=== PATIENT | female | born 1955 | race Caucasian/White ===

== ENCOUNTER 2016-06-30 15:34 | Observation (INO) ==
--- NOTE | 2016-06-30 15:48 | Emergency Department Note ---
Disposition Clinical Impression: Chest pain Qualifiers: Chest pain type: unspecified Qualified Code(s): R07.9 - Chest pain, unspecified Dyspnea Qualifiers: Dyspnea type: unspecified Qualified Code(s): R06.00 - Dyspnea, unspecified Disposition: Home, Self-Care Condition: Good General Adult HPI - General Chief complaint: ED Chest Pain Stated complaint: "chest pain, tired, sob" Time Seen by Provider: 06/30/16 15:47 Source: patient Limitations: no limitations Nursing Notes Reviewed: Yes Vital Signs Reviewed: Yes - History of Present Illness HPI Narrative: 60 y/o female who has had 3 days of intermittent chest pressure and discomfort radiating to her jaw. Significant cardiac history with CABG x4 and PCI with stents placed in 2015. Denies fever. Admits to dyspnea. No LE edema. No cough. PMH of HTN, HLD, fibromyalgia, COPD, CHF, and scleroderma. On keppra, nitro, lasix, duoneb, neurontin, and asa. Hx of COPD and is on 4L NC at all times Radiation: other (pressure) Pain Scale: 10 Consistency: intermittent Improves with: nothing Worsens with: nothing Associated symptoms: Reports: denies other symptoms Treatments Prior to Arrival: none - Related Data Home Medications Medication Instructions Recorded Confirmed LevETIRAcetam [Keppra] 500 mg PO BID #0 12/06/14 06/30/16 Nitroglycerin 0.4 mg SL Q5M PRN 12/31/14 06/30/16 Furosemide [Lasix] 20 mg PO DAILY PRN 05/05/15 06/30/16 Clopidogrel [Plavix] 75 mg PO QAM 12/08/15 06/30/16 Esomeprazole Magnesium [Nexium] 40 mg PO QAM 12/08/15 06/30/16 Ezetimibe [Zetia] 10 mg PO QAM 12/08/15 06/30/16 Gabapentin [Neurontin] 800 mg PO TID 12/08/15 06/30/16 Ranolazine [Ranexa] 1,000 mg PO BID 12/08/15 06/30/16 Denosumab [Prolia (For Outpatient 60 mg SQ [id number] 12/27/15 06/30/16 Infusion)] Oxygen 4 l IH CONT 12/27/15 06/30/16 Ubidecarenone [Co Q10] 100 mg PO BID 12/27/15 06/30/16 Aspirin 81 mg PO QAM 02/01/16 06/30/16 Albuterol Neb [Proventil Neb] 2.5 mg IH TID 06/30/16 06/30/16 Amlodipine [Norvasc] 5 mg PO DAILY 06/30/16 06/30/16 Citalopram [CeleXA] 20 mg PO DAILY 06/30/16 06/30/16 Diclofenac Sodium 2 - 3 gm TP 3-4XD PRN 06/30/16 06/30/16 Ergocalciferol (VITAMIN D2) 50,000 unit PO QWEEK 06/30/16 06/30/16 [Vitamin D2] Levalbuterol Tartrate [Xopenex Hfa] 1 puff IH Q4H PRN 06/30/16 06/30/16 Metoprolol XL (24 HR) Succ [Toprol 12.5 mg PO DAILY 06/30/16 06/30/16 XL] Mycophenolate Mofetil [Cellcept] 1,000 mg PO BID 06/30/16 06/30/16 Tizanidine HCl [Zanaflex] 2 mg PO BID PRN 06/30/16 06/30/16 Previous Rx's Medication Instructions Recorded Gemfibrozil [Lopid] 600 mg PO BIDAC #60 tablet 02/02/16 Isosorbide MONOnitrate (24 HR) 120 mg PO QAM #60 tab.er.24h 02/02/16 [Imdur] Allergies Allergy/AdvReac Type Severity Reaction Status Date / Time Hydroxychloroquine Allergy Severe Swelling Verified 02/01/16 10:31 of Lip/Tongue/Throat epinephrine Allergy Seizure Verified 02/01/16 10:31 [From Epi E-Z Pen] iron AdvReac Abdominal Verified 02/01/16 08:28 Pain All systems ED: reviewed and negative except as stated. Constitutional: Denies: fever Eyes: Denies: vision change ENT ED: Denies: throat pain Cardiovascular: Reports: chest pain Respiratory: Reports: dyspnea. Denies: cough Gastrointestinal: Denies: abdominal pain Genitourinary: Denies: dysuria Integumentary: Denies: rash Neurological: Denies: headache Endocrine: Reports: fatigue Past Medical History - Past Medical History Attestation: Yes The following information was validated with the patient. 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 Absent: respiratory distress - Cardiovascular Cardiovascular exam: Present: regular rate, normal rhythm - Abdominal Exam Abdominal exam: Present: soft, Non-Tender - Extremities Exam Extremities exam: Present: normal inspection - Neurological Exam Neurological exam: Present: alert, oriented X3 - Psychiatric Psychiatric exam: Present: depressed - Skin Skin exam: Present: warm, dry Course Course Narrative: Due to her significant cardiac history and symptoms will do cardiac workup. Her symptoms have been progressive and not sudden in onset. Wells score of 0, no current suspicion for PE. - Reevaluation(s) Reevaluation #1: Troponin negative. EKG unremarkable. She has times of pain free and times of chest pressure while in the department. Will admit. Vital Signs Temperature 97.5 F L 06/30/16 15:35 Pulse Rate 65 06/30/16 15:35 Respiratory Rate 16 06/30/16 15:35 Blood Pressure 115/89 06/30/16 15:35 O2 Sat by Pulse Oximetry 100 06/30/16 15:35 Temperature 97.7 F 06/30/16 20:16 Pulse Rate 63 06/30/16 20:16 Respiratory Rate 18 06/30/16 20:16 Blood Pressure 119/69 06/30/16 20:16 O2 Sat by Pulse Oximetry 98 06/30/16 20:16 Oxygen Delivery Oxygen Delivery Room Air Medical Decision Making - Medical Records Medical records reviewed: Yes I reviewed the patient's medical records. - Lab Data Lab results reviewed: Yes I reviewed the patient's lab results. Result diagrams: 06/30/16 16:40 06/30/16 16:40 Lab Results 06/30/16 06/30/16 06/30/16 Range/Units 16:40 16:40 16:40 WBC 5.6 (4.3-11.1) K/mcL RBC 4.21 (3.82-4.97) M/mcL Hgb 12.4 (11.5-15.4) g/dL Hct 38.1 (35.3-44.9) % MCV 90.5 (83.0-100.0) fL MCH 29.5 (28.0-33.3) pg MCHC 32.5 (31.6-35.5) g/dL RDW 12.4 (11.5-14.5) % Plt Count 349 (140-400) K/mcL MPV 9.3 L (9.4-12.4) fL Immature Gran % 0.4 (0-4) % Seg Neutrophils % 73.1 % Lymphocytes % 15.7 % Monocytes % 9.3 % Eosinophils % 1.1 % Basophils % 0.4 % Neutrophils # 4.1 (1.6-8.9) K/mcL Lymphocytes # 0.9 (0.6-4.6) K/mcL Monocytes # 0.5 (0.0-1.3) K/mcL Eosinophils # 0.1 (0.0-0.6) K/mcL Basophils # 0.0 (0.0-0.2) K/mcL Sodium 141 (136-145) mEq/L Potassium 3.9 (3.5-4.5) mEq/L Chloride 106 (98-109) mEq/L Carbon Dioxide 25 (19-29) mEq/L BUN 16 (7-20) mg/dL Creatinine 0.68 (0.57-1.11) mg/dL Est GFR ( Amer) > 60 (> 60) Est GFR (Non-Af Amer) > 60 (> 60) BUN/Creatinine Ratio 24 (6-26) Glucose 86 (70-99) mg/dL Calculated Osmolality 292 (280-300) Calcium 9.3 (8.6-10.8) mg/dL Troponin I (0-0.03) ng/mL B-Natriuretic Peptide 71 (0-100) pg/mL Urine Color (Yellow) Urine Clarity (Clear) Urine pH (5.0-8.0) pH Units Ur Specific [place] (1.010-1.025) Urine Protein (Neg-Trace) mg/dL Urine Glucose (UA) (Normal) mg/dL Urine Ketones (Negative) mg/dL Urine Blood (Negative) Urine Nitrite (Negative) Urine Bilirubin (Negative) Urine Urobilinogen (Normal) mg/dL Ur Leukocyte Esterase (Negative) Ur Culture Indicated? (NO) 06/30/16 06/30/16 Range/Units 16:40 17:12 WBC (4.3-11.1) K/mcL RBC (3.82-4.97) M/mcL Hgb (11.5-15.4) g/dL Hct (35.3-44.9) % MCV (83.0-100.0) fL MCH (28.0-33.3) pg MCHC (31.6-35.5) g/dL RDW (11.5-14.5) % Plt Count (140-400) K/mcL MPV (9.4-12.4) fL Immature Gran % (0-4) % Seg Neutrophils % % Lymphocytes % % Monocytes % % Eosinophils % % Basophils % % Neutrophils # (1.6-8.9) K/mcL Lymphocytes # (0.6-4.6) K/mcL Monocytes # (0.0-1.3) K/mcL Eosinophils # (0.0-0.6) K/mcL Basophils # (0.0-0.2) K/mcL Sodium (136-145) mEq/L Potassium (3.5-4.5) mEq/L Chloride (98-109) mEq/L Carbon Dioxide (19-29) mEq/L BUN (7-20) mg/dL Creatinine (0.57-1.11) mg/dL Est GFR ( Amer) (> 60) Est GFR (Non-Af Amer) (> 60) BUN/Creatinine Ratio (6-26) Glucose (70-99) mg/dL Calculated Osmolality (280-300) Calcium (8.6-10.8) mg/dL Troponin I 0.00 (0-0.03) ng/mL B-Natriuretic Peptide (0-100) pg/mL Urine Color Yellow (Yellow) Urine Clarity Clear (Clear) Urine pH 6.5 (5.0-8.0) pH Units Ur Specific [place] 1.010 (1.010-1.025) Urine Protein Negative (Neg-Trace) mg/dL Urine Glucose (UA) Normal (Normal) mg/dL Urine Ketones Negative (Negative) mg/dL Urine Blood Negative (Negative) Urine Nitrite Negative (Negative) Urine Bilirubin Negative (Negative) Urine Urobilinogen Normal (Normal) mg/dL Ur Leukocyte Esterase Negative (Negative) Ur Culture Indicated? NO (NO) - Radiology Data Radiology results reviewed: Yes I reviewed the patient's radiology results. - EKG Data EKG #1 EKG attestation: Yes I reviewed and interpreted this EKG. EKG shows normal: sinus rhythm Rate: normal Rhythm: NSR [place]/QRS: normal When compared to previous EKG there are: no significant changes Interpretation: no acute changes Attestation Statement - Attestation Attestation: I examined this patient and my medical decision-making was reviewed with the SPEEDER MACHINE OPERATOR/PA/Advanced Practice Nurse/Resident Physician. I agree with the documented findings, disposition and treatment plan as described except to the extent set forth below. 60-year-old female presents to ED because of chest pain. She has history of coronary disease and had bypass surgery 8 years ago. Recurrent coronary events with stenting in the past few years. She now presents with left-sided chest pain radiating to her jaw. Cannot decipher any provocative factors. No diaphoresis. No nausea. Does complain of dyspnea. No fevers, chills or rigors. Agitated female who is very anxious. No apparent physiologic distress. Oropharynx is clear. Neck is supple. Trachea midline no JVD. Chest clear to auscultation bilaterally. She has moderate reproducible chest wall tenderness but she says this is not the same pain and her presenting pain is a deeper discomfort. Cardiac exam regular without rubs or gallops. Occasional ectopy. Abdomen soft nondistended nontender. Extremities warm and dry without asymmetric edema. EKG was done twice without any acute abnormalities appreciated. Initial troponin was normal. She came in with recurrent pain despite multiple rounds of medications including nitroglycerin and morphine. There is definitely a significant element of anxiety. She will be admitted for further evaluation.
[2016-06-30] MEDS: Nitroglycerin 0.4 MG TAB.SUBL SL ONE ×3 (16:10→16:33)
[2016-06-30] MEDS ORDERED: Ondansetron 4 MG/2 ML VIAL IVP ONE (16:35)
[2016-06-30 17:19] LABS: Bilirubin,Urine Negative (Negative); Blood,Urine Negative (Negative); Clarity,Urine Clear (Clear); Color,Urine Yellow (Yellow); Glucose,Urine (UA) Normal (Normal); Ketones,Urine Negative (Negative); Leukocyte Esterase,Urine Negative (Negative); Nitrite,Urine Negative (Negative); PH,Urine 6.5 pH Units (5.0-8.0); Protein,Urine Negative (Neg-Trace); Urobilinogen,Urine Normal (Normal)
[2016-06-30 17:22] LABS: Basophils % 0.4 %; Eosinophils # 0.1 K/mcL (0.0-0.6); Eosinophils % 1.1 %; Hematocrit 38.1 % (35.3-44.9); Hemoglobin 12.4 g/dL (11.5-15.4); Immature Granulocytes % 0.4 % (0-4); Lymphocytes # 0.9 K/mcL (0.6-4.6); Lymphocytes % 15.7 %; Mean Corpuscular HGB Conc 32.5 g/dL (31.6-35.5); Mean Corpuscular Hemoglobin 29.5 pg (28.0-33.3); Mean Corpuscular Volume 90.5 fL (83.0-100.0); Mean Platelet Volume 9.3 fL (9.4-12.4); Monocytes # 0.5 K/mcL (0.0-1.3); Monocytes % 9.3 %; Neutrophils # 4.1 K/mcL (1.6-8.9); Platelet Count 349 K/mcL (140-400); Red Blood Count 4.21 M/mcL (3.82-4.97); Red Cell Distribution Width 12.4 % (11.5-14.5); Segmented Neutrophils % 73.1 %
[2016-06-30 17:37] LABS: BUN/Creatinine Ratio 24 (6-26); Blood Urea Nitrogen 16 mg/dL (7-20); Calcium 9.3 mg/dL (8.6-10.8); Carbon Dioxide 25 mEq/L (19-29); Chloride 106 mEq/L (98-109); Glucose 86 mg/dL (70-99); Osmolality,Calculated 292 (280-300); Potassium 3.9 mEq/L (3.5-4.5); Sodium 141 mEq/L (136-145); eGFR For African Americans > 60 (> 60); eGFR For Non-African Americans > 60 (> 60)
[2016-06-30] MEDS ORDERED: *HR* Morphine 2 MG/ML SYRINGE IV ONE (17:40)
[2016-06-30] MEDS ORDERED: *HR* LORazepam 2 MG/ML VIAL IVP ONE (17:56)
[2016-06-30] MEDS ORDERED: Dextrose Gel 15 GM PO PRN ×2 (21:16)
[2016-06-30] MEDS ORDERED: Acetaminophen 325 MG TABLET PO PRN (21:16)
[2016-06-30] MEDS ORDERED: *HR* Dextrose 50 % in Water (Syg) 50 ML SYRINGE IVP PRN (21:16)
[2016-06-30] MEDS ORDERED: Ondansetron ODT 4 MG TAB.RAPDIS SL PRN (21:16)
[2016-06-30] MEDS ORDERED: Naloxone 0.4 MG/ML INJ IVP PRN (21:16)
[2016-06-30] MEDS ORDERED: D5% in Water 1,000 ML IV PRN (21:16)
[2016-06-30] MEDS ORDERED: Furosemide 20 MG TABLET PO PRN (21:21)
--- NOTE | 2016-06-30 21:40 | Internal Med History&Physical ---
Date of Encounter: 06/30/16 Time of Encounter: 21:38 Assessment and Plan (1) Chest pain Current visit: Yes Status: Acute trend troponins diabetic cardiac diet Qualifiers: Chest pain type: unspecified Qualified Code(s): R07.9 - Chest pain, unspecified (2) CAD (coronary artery disease) Current visit: No Status: Chronic patient not currently on a statin - review of records shows that she discontinued the medication due to being on gemfibrozil even though Dr. Bello advised her to take both medications Qualifiers: Coronary Disease-Associated Artery/Lesion type: unspecified vessel or lesion type [place] vs. transplanted heart: [place] heart Associated angina: angina presence unspecified Qualified Code(s): I25.10 - Atherosclerotic heart disease of [place] coronary artery without angina pectoris (3) Chronic respiratory failure with hypoxia Current visit: No Status: Chronic patient on 4L O2 via NC 20/11 non-compliant with CPAP at home supplemental O2 to maintain spO2 88% (4) Hypertension Current visit: No Status: Chronic continue home medications PRN hydralazine Qualifiers: Hypertension type: essential hypertension Qualified Code(s): I10 - Essential (primary) hypertension (5) Diabetes Current visit: Yes Status: Acute sliding scale Qualifiers: Diabetes mellitus type: type 2 Diabetes mellitus complication status: with unspecified complications Diabetes mellitus terminal computer operator insulin use: without fpc use Qualified Code(s): E11.8 - Type 2 diabetes mellitus with unspecified complications (6) Limited scleroderma Current visit: No Status: Chronic (7) DVT prophylaxis Current visit: Yes Status: Acute SQ heparin Internal Medicine - H&P: HPI Chief complaint: chest pain Admitted From: Emergency Dept Plans for Post Hospital Care: Home History of present illness: Ms. Ratliff is a 60 year old hypertensive diabetic with a history of hyperlipidemia and coronary artery disease status post CABG and stents who presents to the emergency department with a chief complaint of chest pain for 3 days. She states that she feels a squeezing chest pressure that increases in intensity before releasing similar to contractions of labor. This pressure like pain was located in the left side of her chest. It radiated up her child is and into her left arm. I did not disrupt her sleep at night. She had associated nausea this evening when she came to the emergency department. Cardiac catheterization 02/01/2016 showed severe three-vessel coronary artery disease, LV EF 55%. Stent placement from prior procedure in the mid RCA is patent. S/P CABG 2 of 3 patent bypass grafts. Anatomy has no significant change since 2015 [facility]. Moderate pulmonary hypertension mPAP 44 with elevated LVEDP 29-30. Recommendations: optimal medical therapy and aggressive risk factor modification. Past Med Surg Social Fam HX - Past Medical History Medical history: arthritis, asthma, CHF, COPD, coronary artery disease, hyperlipidemia, hypertension, myocardial infarction, osteoporosis, seizures, other ([place], limited scleroderma) Psychiatric history: anxiety, depression, PTSD - Past Surgical History Surgical History: angioplasty/stent, cholecystectomy, coronary bypass (CABG), hysterectomy, orthopedic, other (L shoulder, R hip), LEOPOLDO/BSO, other (neck fusion ) - Social History Smoking Status: Former smoker Smokeless Tobacco Status: No Alcohol use: rarely Drug use: none - Family History Brother Living Status: Hx Family Cardiac Disorders: Yes (CAD) Daughter Living Status: Still Living Father Adopted: [place]: [place] Living Status: Age at : 42 Cause of : [place] Hx Family Cardiac Disorders: Yes ([place], cardiomegaly) Hx Family Respiratory Disorders: No Hx Family Cancer: No Hx Family GI Disorders: No Hx Family Genitourinary Disorders: No Hx Family Endocrine Disorder: No Hx Family Musculoskeletal Disorders: Yes (arthritis) Hx Family Neuromuscular Disorders: No Hx Family Neurologic Disorders: No Hx Family HEENT Disorders: No Hx Family Autoimmune Disorders: No Hx Family Reproductive Disorders: No Hx Family Psychosocial Disorders: No Hx Family Medical Disorders: No Sister Living Status: Hx Family Cardiac Disorders: Yes (CAD) Hx Family Respiratory Disorders: Yes (copd (sister, smoker)) Mother Living Status: Hx Family Cardiac Disorders: Yes (CAD) Son Adopted: No Living Status: Still Living Hx Family Cardiac Disorders: Yes Hx Family Respiratory Disorders: Yes Hx Family Cancer: Yes Hx Family GI Disorders: No Hx Family Endocrine Disorder: Yes Hx Family Neuromuscular Disorders: No Hx Family Neurologic Disorders: No Hx Family HEENT Disorders: No Hx Family Autoimmune Disorders: No Internal Medicine - H&P: Meds LevETIRAcetam [Keppra] 500 mg PO BID #0 12/06/14 [History] Nitroglycerin 0.4 mg SL Q5M PRN 12/31/14 [History] Furosemide [Lasix] 20 mg PO DAILY PRN 05/05/15 [History] Clopidogrel [Plavix] 75 mg PO QAM 12/08/15 [History] Esomeprazole Magnesium [Nexium] 40 mg PO QAM 12/08/15 [History] Ezetimibe [Zetia] 10 mg PO QAM 12/08/15 [History] Gabapentin [Neurontin] 800 mg PO TID 12/08/15 [History] Ranolazine [Ranexa] 1,000 mg PO BID 12/08/15 [History] Denosumab [Prolia (For Outpatient Infusion)] 60 mg SQ [id number] 12/27/15 [History ] Oxygen 4 l IH CONT 12/27/15 [History] Ubidecarenone [Co Q10] 100 mg PO BID 12/27/15 [History] Aspirin 81 mg PO QAM 02/01/16 [History] Gemfibrozil [Lopid] 600 mg PO BIDAC #60 tablet 02/02/16 [Rx] Isosorbide MONOnitrate (24 HR) [Imdur] 120 mg PO QAM #60 tab.er.24h 02/02/16 [Rx ] Albuterol Neb [Proventil Neb] 2.5 mg IH TID 06/30/16 [History] Amlodipine [Norvasc] 5 mg PO DAILY 06/30/16 [History] Citalopram [CeleXA] 20 mg PO DAILY 06/30/16 [History] Diclofenac Sodium 2 - 3 gm TP 3-4XD PRN 06/30/16 [History] Ergocalciferol (VITAMIN D2) [Vitamin D2] 50,000 unit PO QWEEK 06/30/16 [History] Levalbuterol Tartrate [Xopenex Hfa] 1 puff IH Q4H PRN 06/30/16 [History] Metoprolol XL (24 HR) Succ [Toprol XL] 12.5 mg PO DAILY 06/30/16 [History] Mycophenolate Mofetil [Cellcept] 1,000 mg PO BID 06/30/16 [History] Tizanidine HCl [Zanaflex] 2 mg PO BID PRN 06/30/16 [History] Allergies Hydroxychloroquine Allergy (Severe, Verified 02/01/16 10:31) Swelling of Lip/Tongue/Throat epinephrine [From Epi E-Z Pen] Allergy (Verified 02/01/16 10:31) Seizure iron Adverse Reaction (Verified 02/01/16 08:28) Abdominal Pain All Systems PM: A 10-system review of systems was performed and is negative for pertinent findings except as documented above in the HPI. - Constitutional Constitutional: no chills, no fever(s), no night sweats - EENT Eyes: blurry vision (chronic), no change in vision, no discharge, no pain, no photophobia Ears: no ear discharge, no ear pain, no tinnitus Nose, mouth and throat: no dysphagia, no nasal discharge, no neck pain, no sore throat - Cardiovascular Cardiovascular ROS IM: chest pain, no diaphoresis, no dyspnea, no lightheadedness, no palpitations, no syncope - Respiratory Respiratory: dyspnea (chronic), no cough, no wheezing, no excessive phlegm production - Gastrointestinal Gastrointestinal: nausea, no abdominal pain, no diarrhea, no hematemesis, no hematochezia, no melena, no vomiting - Genitourinary Genitourinary: no change in urinary stream, no dysuria, no flank pain, no hematuria, no urinary hesitancy, no urinary urgency - Musculoskeletal Musculoskeletal ROS IM: no arthralgias, no muscle weakness, no myalgias, no numbness, no tingling - Integumentary Integumentary IM: no rash, no unusual bruising - Neurological Neurological ROS: headache(s), no confusion, no convulsions, no dizziness, no focal weakness, no numbness, no tingling, no tremor(s), no weakness - Hematologic/Lymphatic Hematologic/Lymphatic: no easy bruising - Constitutional Vitals: Temp Pulse Resp BP Pulse Ox 97.7 F 63 18 119/69 98 06/30/16 20:16 06/30/16 20:16 06/30/16 20:16 06/30/16 20:16 06/30/16 20:16 General appearance: Present: A&O X 3, no acute distress, obese, answers questions appropriately - Head Head exam: Present: atraumatic, normocephalic - Eye Eye exam: Present: PERRL, conjuntiva pink, sclera anicteric Pupils: Present: PERRL - Neck Neck exam general surgery: Present: supple, trachea midline. Absent: lymphadenopathy - Respiratory Respiratory exam: Present: decreased breath sounds, prolonged expiratory phase. Absent: accessory muscle use, rales, rhonchi, wheezes - Cardiovascular Cardiovascular exam: Present: RRR, +S1, +S2. Absent: diastolic murmur, gallop, rubs, systolic murmur - GI/Abdominal GI/Abdominal exam: Present: normal bowel sounds, soft, no peritoneal signs. Absent: distended, tenderness - Extremities Exam Extremities exam: Present: warm, radial pulses palpable and symetrical. Absent : calf tenderness, cyanotic, pedal edema - Neurological Exam Neurological exam: Present: CN II-XII intact, oriented X3, no focal deficits. Absent: pronater drift, facial droop, speech deficit - Skin Skin exam: Present: dry, intact Internal Med - H&P Results - Labs CBC & Chem 7: 06/30/16 16:40 06/30/16 16:40
[2016-06-30] MEDS: *HR* Heparin 5,000 UNIT/ML VIAL SQ SCH (22:04)
[2016-06-30] MEDS ORDERED: Melatonin 3 MG TABLET PO PRN (22:37)
[2016-06-30] MEDS ORDERED: *HR* Morphine 2 MG/ML SYRINGE IVP PRN (22:48)
--- NOTE | 2016-06-30 23:25 | Event Note ---
Date of Encounter: 06/30/16 Time of Encounter: 22:30 I agree essentially with the assessment and plan of Resident, case discussed, plan agreed upon. The patient was evaluated at bedside. Ms. Ratliff is a 60 year old with medical history significant for HTN, DM2, HLD, CAD s/p [place], PCI,, CABG, scleroderma, pulmonary HTN, presenting with squeezing left-sided chest pain with radiation to left shoulder, jaw and right side of anterior chest wall of 3- 4 duration, associated with SOB. She recounts pain pattern is different from pain she had with her [place]. pATIENT EVALUATED AT BEDSIDE, DIMINSHED BREATH SOUNDS ESPECIALLY in the lung bases posteriorly. CXR: non-acute. EKG: NSR @ 66, low voltage, no ST-T or T wave abnormality. Troponin normal. IMP Unstable angina vs non-cardiac chest pain PLAN Cycle troponin, serial EKG Increase Imdur to 120 mg QD Morphine IV 2 mg Q4H prn Obtain lipid profile and TSH. Consult cardiology. Worry she is not taking statin, previously on Pravastatin as documented in out- patient record. Her sister who is at bedside thinks he cause increased liver enzymes hence it was stopped. Confirm this with her shake backboard notcher Dr Bello.
[2016-06-30] MEDS: levETIRAcetam 250 MG TABLET PO SCH (23:30)
[2016-06-30] MEDS: Levalbuterol 1 PUFF INHALER IH SCH (23:50)
[2016-07-01] MEDS: Insulin LISPRO 300 UNITS/3 ML VIAL SQ SCH ×3 (00:44→12:11)
[2016-07-01] MEDS: Albuterol 2.5 MG/3 ML NEBULIZER IH SCH ×2 (01:23→07:43)
[2016-07-01 03:57] LABS: Basophils % 0.4 %; Eosinophils # 0.1 K/mcL (0.0-0.6); Eosinophils % 1.4 %; Hematocrit 34.8 % (35.3-44.9); Hemoglobin 11.5 g/dL (11.5-15.4); Immature Granulocytes % 0.4 % (0-4); Lymphocytes % 20.9 %; Mean Corpuscular Hemoglobin 30.1 pg (28.0-33.3); Mean Corpuscular Volume 91.1 fL (83.0-100.0); Mean Platelet Volume 9.4 fL (9.4-12.4); Monocytes # 0.5 K/mcL (0.0-1.3); Monocytes % 9.9 %; Neutrophils # 3.3 K/mcL (1.6-8.9); Platelet Count 311 K/mcL (140-400); Red Blood Count 3.82 M/mcL (3.82-4.97); Red Cell Distribution Width 12.6 % (11.5-14.5)
[2016-07-01 04:07] LABS: Hemoglobin A1C 4.8 %
[2016-07-01 04:11] LABS: Chol/HDL Ratio 3.9 (0-4.9)
[2016-07-01 04:13] LABS: BUN/Creatinine Ratio 24 (6-26); Blood Urea Nitrogen 19 mg/dL (7-20); Calcium 8.7 mg/dL (8.6-10.8); Carbon Dioxide 27 mEq/L (19-29); Chloride 107 mEq/L (98-109); Glucose 110 mg/dL (70-99); Osmolality,Calculated 297 (280-300); Potassium 4.4 mEq/L (3.5-4.5); Sodium 142 mEq/L (136-145); eGFR For African Americans > 60 (> 60); eGFR For Non-African Americans > 60 (> 60)
[2016-07-01] MEDS: Levalbuterol 1 PUFF INHALER IH SCH ×3 (04:58→11:11)
[2016-07-01] MEDS: *HR* Heparin 5,000 UNIT/ML VIAL SQ SCH ×2 (06:56→14:38)
--- NOTE | 2016-07-01 07:33 | Cardiology Consult Note ---
<Pavan Orlelana - Last Filed: 07/01/16 08:53> Date of Encounter: 07/01/16 Time of Encounter: 07:30 Assessment and Plan (1) Chest pain Current Visit: Yes Status: Acute Per Cardiology: Trops negative 3 at 0.00. Currently chest pain-free. Most recent echo January 2016 showed EF 65%, moderate diastolic dysfunction, no significant valvular dysfunction, no segment wall motion abnormalities. I had lengthy discussion with patient regarding catheterization from January. Patient on Ranexa 1000 mg by mouth twice a day. Long-acting nitrates increased from 60 mg to 120 mg during this admission. Patient desires to proceed with a limited echo to reevaluate for any EF changes. No catheterization warranted at this time. Further recs after echo. Discussed and reviewed with Dr. Canales. Qualifiers: Chest pain type: unspecified Qualified Code(s): R07.9 - Chest pain, unspecified (2) CAD (coronary artery disease) Current Visit: No Status: Chronic Per Cardiology: History of CAD with CABG in 2007. Last heart catheterization January 2016 which showed patent to 3 bypass grafts and anatomy unchanged from 2015 catheterization. Had patent MCDONALD to LAD, patent SVG to OM1, occluded SVG to right PDA. RCA had a proximal 50%, patent mid RCA stents, right PDA is small in size with 80% stenosis. Last echo January 2016 showed EF preserved 65%, no significant valvular dysfunction. Patient now started on statin therapy. We'll monitor closely and follow LFTs. Reports history of elevated LFTs with Lipitor in the past. On aspirin, beta sofi, and Plavix. Qualifiers: Coronary Disease-Associated Artery/Lesion type: unspecified vessel or lesion type [place] vs. transplanted heart: [place] heart Associated angina: angina presence unspecified Qualified Code(s): I25.10 - Atherosclerotic heart disease of [place] coronary artery without angina pectoris (3) Diastolic dysfunction Current Visit: Yes Status: Chronic Per Cardiology: Last echo shows moderate diastolic dysfunction. Warm and euvolemic on exam. Chest x-ray with no evidence of heart failure. BMP within normal limits at 73. On Lasix. Do not suspect acute heart failure. Discussion w patient/family: The assessment and plan as outlined above was discussed with the patient and/or family members who expressed understanding and agreement. All questions were answered. Thank you for involving us in the care of your patient. Please call with any questions. History of Present Illness Consult date: 07/01/16 Requesting physician: Tonya Almendarez Consult reason: CP Chief complaint: CP History of present illness: Ms. Ratliff is a 60 year old female with a relevant past medical history of CAD with CABG, diabetes mellitus type 2, hypertension, hyperlipidemia, severe pulmonary hypertension, COPD, diastolic dysfunction, sleep apnea, past history nicotine abuse, and scleroderma. Had recent heart catheterization January 2016 which showed patent to [address] with Dr. Bello. Patient reports increased shortness of breath at rest over the past few weeks. She utilizes home oxygen 20/11. She presented to the ER for complaints of midsternal chest squeezing with radiation to her jaws and left shoulder and scapular region. She reports the pain was continuous, however now relieved. She denies any recent fever, chills, nausea, vomiting, diarrhea, cough. Reports compliance with medications. Not taking statin currently due to reported elevated LFTs with Lipitor. Reports she couldn't wait to see Dr. Bello next week in clinic. Past Med Surg Social Fam HX - Past Medical History Attestation: Yes The following information was validated with the patient. Source: patient, old records reviewed, obtained from family Medical history: arthritis, asthma, CHF, COPD, coronary artery disease, hyperlipidemia, hypertension, myocardial infarction, osteoporosis, seizures, other (BELEN, limited scleroderma) Psychiatric history: anxiety, depression, PTSD - Past Surgical History Surgical History: angioplasty/stent, cholecystectomy, coronary bypass (CABG), hysterectomy, orthopedic, other (L shoulder, R hip), LEOPOLDO/BSO, other (neck fusion ) - Social History Smoking Status: Former smoker Smokeless Tobacco Status: No Alcohol use: rarely Drug use: none - Family History Brother Living Status: Hx Family Cardiac Disorders: Yes (CAD) Daughter Living Status: Still Living Father Adopted: [place]: Scott Laguerre Living Status: Age at : 42 Cause of : GA Hx Family Cardiac Disorders: Yes ([place], cardiomegaly) Hx Family Respiratory Disorders: No Hx Family Cancer: No Hx Family GI Disorders: No Hx Family Genitourinary Disorders: No Hx Family Endocrine Disorder: No Hx Family Musculoskeletal Disorders: Yes (arthritis) Hx Family Neuromuscular Disorders: No Hx Family Neurologic Disorders: No Hx Family HEENT Disorders: No Hx Family Autoimmune Disorders: No Hx Family Reproductive Disorders: No Hx Family Psychosocial Disorders: No Hx Family Medical Disorders: No Sister Living Status: Hx Family Cardiac Disorders: Yes (CAD) Hx Family Respiratory Disorders: Yes (copd (sister, smoker)) Mother Living Status: Hx Family Cardiac Disorders: Yes (CAD) Son Adopted: No Living Status: Still Living Hx Family Cardiac Disorders: Yes Hx Family Respiratory Disorders: Yes Hx Family Cancer: Yes Hx Family GI Disorders: No Hx Family Endocrine Disorder: Yes Hx Family Neuromuscular Disorders: No Hx Family Neurologic Disorders: No Hx Family HEENT Disorders: No Hx Family Autoimmune Disorders: No Medications and Allergies LevETIRAcetam [Keppra] 500 mg PO BID #0 12/06/14 [History] Nitroglycerin 0.4 mg SL Q5M PRN 12/31/14 [History] Furosemide [Lasix] 20 mg PO DAILY PRN 05/05/15 [History] Clopidogrel [Plavix] 75 mg PO QAM 12/08/15 [History] Esomeprazole Magnesium [Nexium] 40 mg PO QAM 12/08/15 [History] Ezetimibe [Zetia] 10 mg PO QAM 12/08/15 [History] Gabapentin [Neurontin] 800 mg PO TID 12/08/15 [History] Ranolazine [Ranexa] 1,000 mg PO BID 12/08/15 [History] Denosumab [Prolia (For Outpatient Infusion)] 60 mg SQ [id number] 12/27/15 [History ] Oxygen 4 l IH CONT 12/27/15 [History] Ubidecarenone [Co Q10] 100 mg PO BID 12/27/15 [History] Aspirin 81 mg PO QAM 02/01/16 [History] Gemfibrozil [Lopid] 600 mg PO BIDAC #60 tablet 02/02/16 [Rx] Isosorbide MONOnitrate (24 HR) [Imdur] 120 mg PO QAM #60 tab.er.24h 02/02/16 [Rx ] Albuterol Neb [Proventil Neb] 2.5 mg IH TID 06/30/16 [History] Amlodipine [Norvasc] 5 mg PO DAILY 06/30/16 [History] Citalopram [CeleXA] 20 mg PO DAILY 06/30/16 [History] Diclofenac Sodium 2 - 3 gm TP 3-4XD PRN 06/30/16 [History] Ergocalciferol (VITAMIN D2) [Vitamin D2] 50,000 unit PO QWEEK 06/30/16 [History] Levalbuterol Tartrate [Xopenex Hfa] 1 puff IH Q4H PRN 06/30/16 [History] Metoprolol XL (24 HR) Succ [Toprol XL] 12.5 mg PO DAILY 06/30/16 [History] Mycophenolate Mofetil [Cellcept] 1,000 mg PO BID 06/30/16 [History] Tizanidine HCl [Zanaflex] 2 mg PO BID PRN 06/30/16 [History] Allergies Hydroxychloroquine Allergy (Severe, Verified 02/01/16 10:31) Swelling of Lip/Tongue/Throat epinephrine [From Epi E-Z Pen] Allergy (Verified 02/01/16 10:31) Seizure iron Adverse Reaction (Verified 02/01/16 08:28) Abdominal Pain All Systems Review: A 10-system review of systems was performed and is negative for pertinent findings except as documented above in the HPI. - Constitutional Constitutional: fatigue - Cardiovascular Cardiovascular: as per HPI, chest pain at rest, dyspnea at rest, dyspnea on exertion, radiating jaw, neck or arm pain Physical Examination Vital Signs, Last 4 Hours Resp Pulse Ox 07/01/16 04:58 16 98 Selected Entries 07/01/16 03:26 Blood Pressure 110/73 General: Conversant, No Apparent Distress HEENT: Atraumatic, Normocephaly, Mucus Membranes Moist Neck: No JVD, Normal carotid pulses Cardiac: Reg Rate and Rhythm, Normal S1 and S2, No Murmur Lungs: Normal Breath Sounds, No Wheeze, Rales, Rhonchi, Other (Slightly diminished bases) Neuro: Alert and responsive, No focal deficits noted Abdomen: Soft, Non-Tender, Other (Obese) Skin: No rashes noted on visualized skin Musculoskeletal: No Chest Wall Tenderness Extremities: No Edema, Normal Pulses Results 07/01/16 03:15 07/01/16 03:15 Lab Results Laboratory Tests 06/30/16 06/30/16 06/30/16 16:40 16:40 21:54 Troponin I 0.00 0.00 B-Natriuretic Peptide 71 LDL Cholesterol, Calc 07/01/16 07/01/16 03:15 03:15 Troponin I 0.00 B-Natriuretic Peptide LDL Cholesterol, Calc 108 H ITS Impressions Chest X-Ray 06/30/16 15:58 IMPRESSION: Stable cardiomegaly with probable chronic pulmonary venous hypertension. No acute congestive heart failure or pneumonia. D/ / Wagner Macias MD / Wagner Macias MD Interpreting Provider: Wagner Macias MD Active Medications Acetaminophen (Tylenol) 650 mg PO Q6HR PRN PRN Reason: Mild Pain (1-3) Stop: 12/30/16 21:17 Albuterol Sulfate (Proventil Neb) 2.5 mg IH TIDR CRISTI PRN Reason: Protocol Stop: 12/31/16 02:01 Last Admin: 07/01/16 01:23 Dose: 2.5 mg Amlodipine Besylate (Norvasc) 5 mg PO DAILY CRISTI PRN Reason: Protocol Stop: 12/31/16 09:01 Aspirin (Aspirin) 81 mg PO QAM [facility] Stop: 12/31/16 09:01 Citalopram Hydrobromide (Celexa) 20 mg PO DAILY [facility] Stop: 12/31/16 09:01 Clopidogrel Bisulfate (Plavix) 75 mg PO QAM [facility] Stop: 12/31/16 09:01 Dextrose/Water (Dextrose 50% (Syg)) 25 ml IVP AD PRN PRN Reason: Hypoglycemia Stop: 12/30/16 21:17 Diphenhydramine HCl (Benadryl) 25 mg PO HS PRN PRN Reason: Agitation Stop: 12/30/16 22:37 Last Admin: 06/30/16 23:31 Dose: 25 mg Docusate Sodium (Colace) 100 mg PO BID PRN PRN Reason: Constipation Stop: 12/30/16 21:17 Furosemide (Lasix) 20 mg PO DAILY PRN PRN Reason: Edema Stop: 12/30/16 21:22 Gabapentin (Neurontin) 800 mg PO TID CRISTI Stop: 12/31/16 09:01 Gemfibrozil (Lopid) 600 mg PO BIDAC [facility] Stop: 12/31/16 07:31 Glucagon (Glucagen) 1 mg IM ONCE PRN PRN Reason: Hypoglycemia Stop: 12/30/16 21:17 Glucose (Gluctose) 15 gm PO ONCE PRN PRN Reason: Hypoglycemia Stop: 12/30/16 21:17 Glucose (Gluctose) 30 gm PO ONCE PRN PRN Reason: Hypoglycemia Stop: 12/30/16 21:17 Heparin Sodium (Porcine) (Heparin) 5,000 unit SQ Q8HCO [facility] Stop: 12/30/16 22:01 Last Admin: 07/01/16 06:56 Dose: Not Given Hydralazine HCl (Hydralazine) 10 mg IVP Q1H PRN PRN Reason: Hypertension Stop: 12/30/16 22:00 Dextrose (Dextrose 5%) 1,000 mls @ 100 mls/hr IV CONT PRN PRN Reason: HYPOGLYCEMIA Stop: 12/30/16 21:17 Insulin Human Lispro (Humalog) 0 units SQ Q6HR CRISTI PRN Reason: Protocol Stop: 12/31/16 00:01 Last Admin: 07/01/16 06:57 Dose: Not Given Isosorbide Mononitrate (Imdur) 120 mg PO QAM [facility] Stop: 12/31/16 09:01 Levalbuterol HCl (Xopenex) 1 puff IH [id number] [facility] Stop: 12/31/16 00:01 Last Admin: 07/01/16 04:58 Dose: 1 puff Levetiracetam (Keppra) 500 mg PO BID [facility] Stop: 12/30/16 22:37 Last Admin: 06/30/16 23:30 Dose: 500 mg Melatonin (Melatonin) 3 mg PO HS PRN PRN Reason: Insomnia Stop: 12/30/16 22:38 Last Admin: 06/30/16 23:30 Dose: 3 mg Metoprolol Succinate (Toprol Xl) 12.5 mg PO DAILY [facility] Stop: 12/31/16 09:01 Morphine Sulfate (Morphine Sulfate) 2 mg IVP Q2HR PRN PRN Reason: Chest Pain Stop: 12/30/16 22:49 Mycophenolate Mofetil (Cellcept) 1,000 mg PO BID [facility] Stop: 12/31/16 09:01 Naloxone HCl (Narcan) 0.4 mg IVP Q2MIN PRN PRN Reason: Opioid Reversal Stop: 12/30/16 21:17 Omeprazole (Prilosec) 20 mg PO QAM [facility] Stop: 12/31/16 09:01 Ondansetron HCl (Zofran Odt) 4 mg SL Q8HR PRN PRN Reason: Nausea And Vomiting Stop: 12/30/16 21:17 Pharmacy Profile Note (Patient Taking Own Medication) 1 each PO QAM [facility] Stop: 12/31/16 09:01 Ranolazine (Ranexa) 1,000 mg PO BID [facility] Stop: 12/31/16 09:01 - Imaging and Cardiology Echo: pending Cardiac cath: report reviewed - EKG Interpretation EKG results cardiology: personally reviewed (Sinus rhythm in the 60s, comparable to previous ECG), normal ECG, sinus rhythm, no diagnostic ischemia, other (24-hour telemetry reviewed with average heart rate 73, sinus rhythm, no significant events noted) Consult Discharge Plan - Plan Referrals: Riaz Ness, [Primary Care Provider] - <Dion Canales - Last Filed: 07/01/16 09:41> Date of Encounter: 07/01/16 Assessment and Plan Discussion w patient/family: The assessment and plan as outlined above was discussed with the patient and/or family members who expressed understanding and agreement. All questions were answered. Thank you for involving us in the care of your patient. Please call with any questions. History of Present Illness History of present illness: Ms. Ratliff is a 60 year old female All Systems Review: A 10-system review of systems was performed and is negative for pertinent findings except as documented above in the HPI. Physical Examination Vital Signs, Last 4 Hours Temp Pulse Resp BP Pulse Ox 07/01/16 07:45 98 07/01/16 07:41 16 98 07/01/16 07:37 97.9 F 70 17 112/72 99 Results 07/01/16 03:15 07/01/16 03:15 Lab Results 06/30/16 07/01/16 07/01/16 21:54 03:15 03:15 WBC 4.9 Hgb 11.5 Hct 34.8 L Plt Count 311 Sodium Potassium Chloride Carbon Dioxide BUN Creatinine Glucose Calcium Troponin I 0.00 0.00 07/01/16 03:15 WBC Hgb Hct Plt Count Sodium 142 Potassium 4.4 Chloride 107 Carbon Dioxide 27 BUN 19 Creatinine 0.79 Glucose 110 H Calcium 8.7 Troponin I - Attending Attestation Patient was seen examined and Agree with plan as outlined Patient has known CAD, cath < 6 months ago with no options for revascularization. Work up fairly unremarkable - negative Trops - no acute EKG changes. Will check Echo - but if no profound changes - recommend medical therapy. Agree with change in Nitrates. Hopefully home later today F/u Cardiology after d/c. Thanks for consult.
[2016-07-01] MEDS: levETIRAcetam 250 MG TABLET PO SCH (08:15)
[2016-07-01] MEDS: Gabapentin 400 MG CAPSULE PO SCH ×2 (08:17→14:36)
[2016-07-01] MEDS ORDERED: Isosorbide MONOnitrate (24 HR) 60 MG TAB.ER.24H PO SCH ×4 (09:00→14:00)
[2016-07-01] MEDS ORDERED: amLODIPine 5 MG TABLET PO SCH (09:00)
[2016-07-01] MEDS ORDERED: Aspirin 81 MG TAB.CHEW PO SCH (09:00)
[2016-07-01] MEDS ORDERED: (Ezetimibe [Zetia] 10 MG) PO SCH (09:00)
[2016-07-01] MEDS ORDERED: Ranolazine 500 MG TAB.ER.12H PO SCH (09:00)
[2016-07-01] MEDS ORDERED: Metoprolol XL (24 HR) Succ 25 MG TAB.ER.24H PO SCH ×2 (09:00)
[2016-07-01] MEDS ORDERED: LEVETIRACETAM 500 MG PO SCH (09:00)
--- NOTE | 2016-07-01 13:46 | ECHO - Doppler Report ---
Limited Echocardiogram Name: Viri Ratliff Date of Study: 07/01/2016 Date: 1955 Ht: 60.0 in Medical Record#: [id number] Age: 60 Wt: 215.0 lb Gender: Female BSA: 1.92 Order #: [id number] Location: [facility] Room #: 3B33 Reading Physician: Trev Randolph MD, [facility] Gas Plumber: Gay Laguerre Ordering Physician: Pavan Orellana CNP Primary Physician: Riaz Ness DO Indications: Chest pain, CAD Impressions: LVEF 60-65%. Left Ventricular Wall Motion: Rest Echo Findings All wall segments showed normal motion. Findings: Study Quality * Technically adequate exam. ECG Findings * Normal sinus rhythm. Left Ventricle * LVEF 60-65%. * No segmental dysfunction. Right Ventricle * Normal right ventricular structure and function. History Hypercholesteremia Family History of CAD History of CAD/PTCA Myocardial Infarction Coronary Artery Bypass Graft Congestive Heart Failure 02/01/2016 a Previous Echo was performed. Measurements: BP: 112/ 72 2D Normal Values RVIDd: 2.40 cm <2.7 cm IVSd: 1.00 cm 0.6 - 1.0 cm LVIDd: 4.90 cm 3.7 - 5.6 cm LVPWd: 1.00 cm 0.6 - 1.1 cm LVIDs: 3.80 cm 1.5 - 3.6 cm %FS: 22.40 cm >25 % LA volume: Updated by Trev Randolph MD, [facility] on 07/01/2016 1:38:03 PM electronically signed on 07/01/2016 1:41:39 PM with status of Final Wall Motion Nguyễn: 1=Normal, 2=Hypokinesis, 3=Akinesis, 4=Dyskinesis, 5=Aneurysmal, 6=Hyperkinetic, X=Not Visualized (Blank)=Missing
--- NOTE | 2016-07-01 14:04 | Event Note ---
Date of Encounter: 07/01/16 Time of Encounter: 13:30 - Cardiology Event Note I had lengthy discussion with patient and family (about 30 minutes). At this point they appear agreeable to not proceed with LHC for now. Can re-evaluate in am if they desire to proceed with further dialogue on LHC-- would need to discuss with interventional cardiology to see if deemed appropriate. All questions answered. Will increase Imdur to 180mg PO daily. Will not start statin -- states intolerant to 3 different statins with increased LFTs.
[2016-07-01 15:17] VITALS: BP 98/64
--- NOTE | 2016-07-01 15:17 | Discharge Summary ---
Date of Encounter: 07/01/16 Time of Encounter: 15:00 - Discharge Diagnosis (1) Chest pain Priority: Primary Status: Acute Qualifiers: Chest pain type: precordial pain Qualified Code(s): R07.2 - Precordial pain (2) Diabetes Priority: Secondary Status: Chronic Qualifiers: Diabetes mellitus type: type 2 Diabetes mellitus complication status: with unspecified complications Diabetes mellitus [facility] insulin use: without [facility] use Qualified Code(s): E11.8 - Type 2 diabetes mellitus with unspecified complications (3) COPD (chronic obstructive pulmonary disease) Priority: Secondary Status: Chronic Qualifiers: COPD type: chronic bronchitis Chronic bronchitis type: simple Qualified Code(s): J41.0 - Simple chronic bronchitis (4) Depression Priority: Secondary Status: Chronic Qualifiers: Depression Type: unspecified Qualified Code(s): F32.9 - Major depressive disorder, single episode, unspecified (5) GERD (gastroesophageal reflux disease) Priority: Secondary Status: Chronic Qualifiers: Esophagitis presence: esophagitis presence not specified Qualified Code(s) : K21.9 - Gastro-esophageal reflux disease without esophagitis (6) CAD (coronary artery disease) Priority: Secondary Status: Chronic Qualifiers: Coronary Disease-Associated Artery/Lesion type: unspecified vessel or lesion type [place] vs. transplanted heart: [place] heart Associated angina: angina presence unspecified Qualified Code(s): I25.10 - Atherosclerotic heart disease of [place] coronary artery without angina pectoris (7) Chronic respiratory failure with hypoxia Priority: Secondary Status: Chronic (8) Hyperlipidemia Priority: Secondary Status: Chronic Qualifiers: Hyperlipidemia type: unspecified Qualified Code(s): E78.5 - Hyperlipidemia , unspecified (9) Hypertension Priority: Secondary Status: Chronic Qualifiers: Hypertension type: essential hypertension Qualified Code(s): I10 - Essential (primary) hypertension (10) Limited scleroderma Priority: Secondary Status: Chronic - Discharge Medications Prescriptions: LORazepam [Ativan] 0.25 mg PO HS PRN #10 tablet PRN Reason: Anxiety Home Medications: LevETIRAcetam [Keppra] 500 mg PO BID #0 12/06/14 [History] Nitroglycerin 0.4 mg SL Q5M PRN 12/31/14 [History] Furosemide [Lasix] 20 mg PO DAILY PRN 05/05/15 [History] Clopidogrel [Plavix] 75 mg PO QAM 12/08/15 [History] Esomeprazole Magnesium [Nexium] 40 mg PO QAM 12/08/15 [History] Ezetimibe [Zetia] 10 mg PO QAM 12/08/15 [History] Gabapentin [Neurontin] 800 mg PO TID 12/08/15 [History] Ranolazine [Ranexa] 1,000 mg PO BID 12/08/15 [History] Denosumab [Prolia (For Outpatient Infusion)] 60 mg SQ [id number] 12/27/15 [History ] Oxygen 4 l IH CONT 12/27/15 [History] Ubidecarenone [Co Q10] 100 mg PO BID 12/27/15 [History] Aspirin 81 mg PO QAM 02/01/16 [History] Gemfibrozil [Lopid] 600 mg PO BIDAC #60 tablet 02/02/16 [Rx] Albuterol Neb [Proventil Neb] 2.5 mg IH TID 06/30/16 [History] Amlodipine [Norvasc] 5 mg PO DAILY 06/30/16 [History] Citalopram [CeleXA] 20 mg PO DAILY 06/30/16 [History] Diclofenac Sodium 2 - 3 gm TP 3-4XD PRN 06/30/16 [History] Ergocalciferol (VITAMIN D2) [Vitamin D2] 50,000 unit PO QWEEK 06/30/16 [History] Levalbuterol Tartrate [Xopenex Hfa] 1 puff IH Q4H PRN 06/30/16 [History] Metoprolol XL (24 HR) Succ [Toprol Xl] 12.5 mg PO DAILY 06/30/16 [History] Mycophenolate Mofetil [Cellcept] 1,000 mg PO BID 06/30/16 [History] Tizanidine HCl [Zanaflex] 2 mg PO BID PRN 06/30/16 [History] Isosorbide MONOnitrate (24 HR) [Imdur] 180 mg PO QAM #60 tab.er.24h 07/01/16 [Rx ] LORazepam [Ativan] 0.25 mg PO HS PRN #10 tablet 07/01/16 [Rx] Allergies/Adverse Reactions: Allergies Hydroxychloroquine Allergy (Severe, Verified 02/01/16 10:31) Swelling of Lip/Tongue/Throat epinephrine [From Epi E-Z Pen] Allergy (Verified 02/01/16 10:31) Seizure iron Adverse Reaction (Verified 02/01/16 08:28) Abdominal Pain Procedures/tests Complete & Pending: Procedures Performed prior 72 hours Category Date Time Status EV limited echocardiogram Routine Y 07/01/16 08:52 Completed Date of admission: 06/30/16 18:09 Primary care physician: Riaz Ness DO Consults: 06/30/16 23:41 Consult to Cardiology [CONS] Routine Comment: Consulting Provider: Cardiology Beverley Reason for Consult: CP, last C 01/2016, troponin 0.00 x2 Call Completed: No Discharging clinician: Kerry Oates Anticipated date of discharge: 07/01/16 - Patient Status Disposition: Home, Self-Care Condition: Good Functional capacity at discharge: independent ambulation Overall status at discharge: patient is progressing back to baseline - Discharge Instructions Instructions: Chest Pain (DC), Depression (DC), Diabetes Mellitus Type 2 in Adults (DC), Chronic Obstructive Pulmonary Disease (DC), Chronic Hypertension ( DC) Follow Up With: Riaz Ness DO [Primary Care Provider] - Additional Instructions: F/up with as scheduled - Diet and Activity Activity: resume usual activities as tolerated, wear oxygen at all times Diet: diabetic diet, low fat, low cholesterol, low salt diet Hospital course: Ms. Ratliff is a 60 year old female with multple medical problems, admitted with chest pain. Initial labs, chest XRay and EKG done in the ER showed no acute abnormality. She was placed on Telemetry monitoring, which remained uneventful. Serial Troponins remianed negative. Lipid panel was normal. Echocardiogram showed preserved EF and no gross abnormality. Cardiology was consulted and recommended repeat Echo to check EF as her previous Echo from Jan 2016 showed moderate diastolic dysfunction and no valvular abnormalities. LHC from Jan 2016 showed patent grafts. Patient remains asymptomatic today and her Imdur is being increased to 180mg from 120mg daily. sHe is otherwise medically stable for discharge with outpatient Cardiology f/up. - Time Spent with Patient Total time spent providing and/or coordinating discharge services: Greater than 30 minutes (40 min) - Constitutional Vitals: Temp Pulse Resp BP Pulse Ox 97.4 F L 73 16 112/72 98 07/01/16 11:14 03/04/17 11:14 07/01/16 11:14 07/01/16 11:13 07/01/16 11:14 General appearance: Present: A&O X 3, obese, answers questions appropriately - Respiratory Respiratory exam: Present: CTAB. Absent: accessory muscle use, rales, rhonchi, wheezes - Cardiovascular Cardiovascular exam: Present: RRR, +S1, +S2. Absent: diastolic murmur, gallop, rubs, systolic murmur
--- NOTE | 2016-07-03 07:01 | Electrocardiograph Report ---
[place] [address] Test Date: 2016-06-30 Pat Name: Viri Ratliff Department: 103 Room: 3B Gender: F Kaitara Taraka: : 1955 Requested By: Jack Montes Order Number: [id number] Reading MD: Trev Randolph MD Measurements Intervals [place] Rate: 65 P: 48 NE: 195 QRS: 23 QRSD: 91 T: 52 QT: 424 QTc: 435 Interpretive Statements SINUS RHYTHM LOW QRS VOLTAGE IN PRECORDIAL LEADS Electronically Signed On 07-03-2016 7:00:01 EST by Trev Randolph MD
--- NOTE | 2016-07-03 07:03 | Electrocardiograph Report ---
[address] [place] [address] Test Date: 2016-06-30 Pat Name: Viri Ratliff Department: 103 Room: 3B33 Gender: F Stain Wiper: : 1955 Requested By: Nathaly Oates Order Number: [id number] Reading MD: Trev Randolph MD Measurements Intervals [place] Rate: 66 P: 54 ND: 186 QRS: 24 QRSD: 89 T: 38 QT: 434 QTc: 447 Interpretive Statements SINUS RHYTHM LOW QRS VOLTAGE IN PRECORDIAL LEADS Electronically Signed On 07-03-2016 7:02:09 EST by Trev Randolph MD
== END 2016-07-01 15:49 | disposition home or self-care (01) ==
LOC: EMEROO 15:34 → 3BNU 15:34 → SUATTDRO 18:09 → 3BNU 19:40
PROVIDERS: ADMIT Internal Medicine; ATTEND Internal Medicine

== ENCOUNTER 2016-11-20 16:19 | Observation (INO) ==
[2016-11-20] MEDS ORDERED: 0.9 % Sodium Chloride 1,000 ML ONE (16:21)
[2016-11-20] MEDS ORDERED: Aspirin 81 MG TAB.CHEW PO ONE (16:28)
[2016-11-20] MEDS ORDERED: 0.9 % Sodium Chloride 500 ML IVC ONE (16:28)
[2016-11-20 16:35] LABS: Basophils % 0.5 %; Eosinophils # 0.1 K/mcL (0.0-0.6); Eosinophils % 2.1 %; Hematocrit 37.7 % (35.3-44.9); Immature Granulocytes % 0.5 % (0-4); Lymphocytes # 0.9 K/mcL (0.6-4.6); Lymphocytes % 21.2 %; Mean Corpuscular HGB Conc 31.8 g/dL (31.6-35.5); Mean Corpuscular Hemoglobin 27.9 pg (28.0-33.3); Mean Corpuscular Volume 87.7 fL (83.0-100.0); Mean Platelet Volume 8.9 fL (9.4-12.4); Monocytes # 0.5 K/mcL (0.0-1.3); Monocytes % 10.9 %; Neutrophils # 2.9 K/mcL (1.6-8.9); Platelet Count 375 K/mcL (140-400); Red Cell Distribution Width 13.6 % (11.5-14.5); Segmented Neutrophils % 64.8 %
[2016-11-20 16:42] LABS: INR 1.1; Prothrombin Time 12.1 Seconds (9.4-12.1)
[2016-11-20 16:44] LABS: Activated Partial Thrombo Time 31.1 Seconds (26.0-36.0)
[2016-11-20 16:48] LABS: BUN/Creatinine Ratio 21 (6-26); Blood Urea Nitrogen 16 mg/dL (7-20); Carbon Dioxide 28 mEq/L (19-29); Chloride 106 mEq/L (98-109); Glucose 102 mg/dL (70-99); Osmolality,Calculated 291 (280-300); Potassium 4.1 mEq/L (3.5-4.5); Sodium 140 mEq/L (136-145); eGFR For African Americans > 60 (> 60); eGFR For Non-African Americans > 60 (> 60)
[2016-11-20] MEDS: Nitroglycerin 0.4 MG TAB.SUBL SL ONE ×2 (16:50→17:11)
[2016-11-20] MEDS ORDERED: *HR* Heparin 5,000 UNIT/ML VIAL IVP PRN ×4 (17:24→19:25)
[2016-11-20] MEDS ORDERED: *HR* Heparin 5,000 UNIT/ML VIAL IVP ONE ×2 (17:24→19:25)
[2016-11-20] MEDS ORDERED: Heparin 25,000 UNIT/500 ML D5W 25,000 UNIT/500 ML MLS IVC SCH ×2 (17:30→19:30)
[2016-11-20] MEDS ORDERED: Nitroglycerin 25 MG/250 ML INFUS..BTL IVC SCH (17:30)
[2016-11-20] MEDS ORDERED: Ondansetron 4 MG/2 ML VIAL IVP ONE (17:48)
--- NOTE | 2016-11-20 18:12 | Emergency Department Note ---
Disposition Clinical Impression: Angina at rest Chest pain Qualifiers: Chest pain type: unspecified Qualified Code(s): R07.9 - Chest pain, unspecified Disposition: Admitted As Inpatient Condition: Good Referrals: NO,PCP [Non-Partnered Physician] - Forms: ED Satisfaction Letter Time of Disposition: 19:31 Chest Pain HPI - General Chief Complaint: ED Chest Pain Stated Complaint: chest pain Time Seen by Provider: 11/20/16 16:28 Source: patient Mode of arrival: ambulatory Limitations: no limitations Vital Signs Reviewed: Yes Nursing Notes Reviewed: Yes - History of Present Illness HPI Narrative: Patient presents emergency room from outpatient evaluation. 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 She has had these symptoms in the past with a myocardial infarction. They were concerned and called a rapid response facility. Patient denies any symptoms prior to going the facility today. No recent medication changes or illnesses. Pt complaint: chest pain Onset (ago): Just GUEST ADVISOR Duration: constant Onset: during rest Pain Location: substernal, left chest Severity: moderate Severity scale (1-10): 2 Quality: heaviness, sharp Pain Radiation: none Improves with: nothing Worsens with: nothing Associated symptoms: Reports: nausea, diaphoresis. Denies: vomiting, dyspnea, sense of impending doom, syncope Treatments prior to arrival chest pain: aspirin - Related Data Home Medications Medication Instructions Recorded Confirmed LevETIRAcetam [Keppra] 500 mg PO BID #0 12/06/14 11/20/16 Nitroglycerin 0.4 mg SL Q5M PRN 12/31/14 11/20/16 Furosemide [Lasix] 20 mg PO DAILY PRN 05/05/15 06/30/16 Clopidogrel [Plavix] 75 mg PO QAM 12/08/15 11/20/16 Esomeprazole Magnesium [Nexium] 40 mg PO QAM 12/08/15 11/20/16 Ezetimibe [Zetia] 10 mg PO QAM 12/08/15 11/20/16 Gabapentin [Neurontin] 800 mg PO TID 12/08/15 06/30/16 Ranolazine [Ranexa] 1,000 mg PO BID 12/08/15 11/20/16 Denosumab [Prolia (For Outpatient 60 mg SQ [id number] 12/27/15 06/30/16 Infusion)] Oxygen 4 l IH CONT 12/27/15 11/20/16 Ubidecarenone [Co Q10] 100 mg PO BID 12/27/15 06/30/16 Aspirin 81 mg PO QAM 02/01/16 06/30/16 Albuterol Neb [Proventil Neb] 2.5 mg IH TID 06/30/16 06/30/16 Citalopram [CeleXA] 20 mg PO DAILY 06/30/16 06/30/16 Diclofenac Sodium 2 - 3 gm TP 3-4XD PRN 06/30/16 06/30/16 Ergocalciferol (VITAMIN D2) 50,000 unit PO QWEEK 06/30/16 06/30/16 [Vitamin D2] Levalbuterol Tartrate [Xopenex Hfa] 1 puff IH Q4H PRN 06/30/16 06/30/16 Metoprolol XL (24 HR) Succ [Toprol 12.5 mg PO DAILY 06/30/16 11/20/16 Xl] Mycophenolate Mofetil [Cellcept] 1,000 mg PO BID 06/30/16 06/30/16 Tizanidine HCl [Zanaflex] 2 mg PO BID PRN 06/30/16 11/20/16 amLODIPine [Norvasc] 5 mg PO DAILY 06/30/16 11/20/16 FLUoxetine HCl [PROzac] 20 mg PO DAILY 11/20/16 11/20/16 Lansoprazole [Prevacid] 30 mg PO BID 11/20/16 11/20/16 SUMAtriptan succinate [Imitrex] 50 mg PO Q2H PRN MDD 100MG 11/20/16 11/20/16 Tramadol HCl [Ultram] 100 mg PO Q6H PRN 11/20/16 11/20/16 Previous Rx's Medication Instructions Recorded Gemfibrozil [Lopid] 600 mg PO BIDAC #60 tablet 02/02/16 Isosorbide MONOnitrate (24 HR) 180 mg PO QAM #60 tab.er.24h 07/01/16 [Imdur] LORazepam [Ativan] 0.25 mg PO HS PRN #10 tablet 07/01/16 Allergies Allergy/AdvReac Type Severity Reaction Status Date / Time Hydroxychloroquine Allergy Severe Swelling Verified 11/20/16 17:11 of Lip/Tongue/Throat epinephrine Allergy Seizure Verified 11/20/16 17:11 [From Epi E-Z Pen] iron AdvReac Abdominal Verified 11/20/16 17:11 Pain All systems ED: reviewed and negative except as stated. Review of Systems: As Per HPI Constitutional: Denies: fever, chills Cardiovascular: Reports: chest pain, palpitations. Denies: dyspnea on exertion , orthopnea, edema, syncope Respiratory: Denies: cough, dyspnea, wheezes Gastrointestinal: Denies: abdominal pain, nausea, vomiting Genitourinary: Denies: urgency, dysuria Musculoskeletal: Reports: back pain. Denies: neck pain Integumentary: Denies: rash Neurological: Denies: headache Psychiatric: Reports: anxiety. Denies: depression Endocrine: Denies: fatigue Chest Pain PMH - Past Medical History Medical history: Reports: arthritis, asthma, CHF, COPD, coronary artery disease , hyperlipidemia, hypertension, myocardial infarction, osteoporosis, seizures, other Reports: Pulmonary Hypertension, Other Collagen Vascular Disease, Mitral Valve Prolapse Surgical history: Reports: angioplasty/stent, cholecystectomy, coronary bypass ( CABG), hysterectomy, orthopedic, other, LEOPOLDO/BSO, other Psychiatric history: Reports: anxiety, depression, PTSD Prior Cardiac Testing/Procedures: Stress Test, CABG LEATHER FITTER history: Reports: no LEATHER FITTER history - Social History Smoking Status: Former smoker Alcohol use: Reports: rarely Drug use: Reports: none Physical Exam - General Limitations: no limitations General appearance: alert, anxious - Head Head exam: atraumatic, normocephalic, normal inspection - ENT ENT exam: normal exam, normal oropharynx, mucous membranes moist - Neck Neck exam: Present: normal inspection, full ROM, trachea midline - Chest Chest inspection: Present: normal inspection, symmetric chest wall rise. Absent : tenderness, rash - Respiratory Respiratory exam: Present: normal lung sounds bilaterally. Absent: respiratory distress, wheezes, stridor, accessory muscle use - Cardiovascular Cardiovascular exam: Present: regular rate, normal rhythm, normal heart sounds - Abdominal Exam Abdominal exam: Present: soft, Non-Tender, normal bowel sounds. Absent: tenderness, distention, guarding, rebound, rigidity, Ross's sign, Rovsing's sign, tenderness at McBurney's Point, pulsatile mass - Extremities Exam Extremities exam: Present: normal inspection, full ROM, normal capillary refill. Absent: tenderness - Back Exam Back exam: Present: normal inspection, full ROM. Absent: tenderness, CVA tenderness (R), CVA tenderness (L) - Neurological Exam Neurological exam: Present: alert, oriented X3, CN II-XII intact, normal gait - Skin Skin exam: Present: warm, dry, intact, normal color Course Course Narrative: Patient seen and examined the time of arrival to the emergency room. See history of present illness. 60-year-old female presents from outpatient evaluation where she had severe onset of left-sided chest pain. These symptoms are similar to when she had her previous myocardial infarction. She has known angina but was unable to take her nitroglycerin at that facility. Denies any recent illnesses, trauma, fevers chills, chest pain shortness of breath, headache or vision change, nausea vomiting or diarrhea prior to the event just before coming over to the emergency room. Patient is still having active chest pain on presentation here. Immediate EKG was collected showing no acute signs of ST segment elevation. Morphology was similar in comparison EKG done on . IV access obtained labs drawn chest x-ray ordered. Patient had nitroglycerin trial at this time. 2 doses of sublingual nitroglycerin had almost resolved her symptoms. Approximately 30 seconds after the symptoms are almost gone patient started to have persistently worsening chest pain again. EKG was collected again 1 hour after arrival showing stable morphology of an acute signs of change. Patient was started on nitroglycerin drip. CT imaging of the chest ordered secondary to the midsternal pain that radiates into the back. Concern is still noted for possible dissection or aneurysm. Fluids aspirin to be given at this time. Heparin drip to be started after imaging is negative. Once his workup is completed admission process will be determined for patient being evaluated for acute coronary syndrome with concern for possible progression in the myocardial infarction. Her symptoms are concerning based on her history as well as her description of them being identical to her previous myocardial infarction. Disposition pending workup and treatment course. Patient most likely need admission. Physical exam she is in some moderate distress some of it appears to be anxious in nature. Lungs are clear heart is regular abdomen is soft. Moves all portion of his difficulty she has no signs of pitting edema past the mid calf at this point. No other visible signs of trauma or injury. - Reevaluation(s) Reevaluation #1: Labs are all within normal limits. Troponin is 0.00. EKG has been stable throughout the course of care. Symptoms of been almost completely controlled the nitroglycerin drip. CT imaging of the chest is still pending. Admission process will be completed once the imaging is resulted. Time: 18:18 Reevaluation #2: Patient has negative CT of the chest at this time. Her symptoms of completely resolve the nitroglycerin drip. She is resting comfortably in the bed of this time. Her predicted be ordered at this point. Patient will be admitted for angina-like symptoms responsive to nitroglycerin with normal EKG and negative troponin on first evaluation. Concerning symptoms were noted at this time. This is similar to previous myocardial infarction. This information will be conveyed to the hospitalist. She also had a recent stress test that showed ischemic changes in the posterior aspect of the heart. Disposition pending conversation with hospitalist Time: 19:30 Reevaluation #3: Patient was reviewed with the hospitalist Dr. Hernandez. We reviewed the presentation symptoms of medical intervention here. She had no other recommendations at this time. Patient is otherwise stable. Admission process to be completed this point. We will continue monitoring of the emergency room until patient is moved to the floor. Reviewed this with the patient she is resting comfortably in the bed with no symptoms of pain or other underlying concerns point. Patient will be admitted to hospitalist at this time Time: 19:50 Vital Signs Temperature 98.1 F 11/20/16 16:20 Pulse Rate 69 11/20/16 16:20 Respiratory Rate 16 11/20/16 16:20 Blood Pressure 123/57 11/20/16 16:20 O2 Sat by Pulse Oximetry 97 11/20/16 16:20 Temperature 98.1 F 11/20/16 16:20 Pulse Rate 98 11/20/16 17:50 Respiratory Rate 16 11/20/16 17:50 Blood Pressure 94/65 11/20/16 17:50 O2 Sat by Pulse Oximetry 98 11/20/16 17:50 Oxygen Delivery Oxygen Delivery Room Air Chest Pain - MDM Narrative Medical decision making narrative: Chest pain, ACS rule out, angina - Medical Records Medical records reviewed: Yes I reviewed the patient's medical records. - Lab Data Lab results reviewed: Yes I reviewed the patient's lab results. Result diagrams: 11/20/16 16:26 11/20/16 16:26 Lab Results 11/20/16 11/20/16 11/20/16 Range/Units 16:26 16:26 16:26 WBC 4.4 (4.3-11.1) K/mcL RBC 4.30 (3.82-4.97) M/mcL Hgb 12.0 (11.5-15.4) g/dL Hct 37.7 (35.3-44.9) % MCV 87.7 (83.0-100.0) fL MCH 27.9 L (28.0-33.3) pg MCHC 31.8 (31.6-35.5) g/dL RDW 13.6 (11.5-14.5) % Plt Count 375 (140-400) K/mcL MPV 8.9 L (9.4-12.4) fL Immature Gran % 0.5 (0-4) % Seg Neutrophils % 64.8 % Lymphocytes % 21.2 % Monocytes % 10.9 % Eosinophils % 2.1 % Basophils % 0.5 % Neutrophils # 2.9 (1.6-8.9) K/mcL Lymphocytes # 0.9 (0.6-4.6) K/mcL Monocytes # 0.5 (0.0-1.3) K/mcL Eosinophils # 0.1 (0.0-0.6) K/mcL Basophils # 0.0 (0.0-0.2) K/mcL PT 12.1 (9.4-12.1) Seconds INR 1.1 APTT 31.1 (26.0-36.0) Seconds Sodium (136-145) mEq/L Potassium (3.5-4.5) mEq/L Chloride (98-109) mEq/L Carbon Dioxide (19-29) mEq/L BUN (7-20) mg/dL Creatinine (0.57-1.11) mg/dL Est GFR ( Amer) (> 60) Est GFR (Non-Af Amer) (> 60) BUN/Creatinine Ratio (6-26) Glucose (70-99) mg/dL Calculated Osmolality (280-300) Calcium (8.6-10.8) mg/dL Troponin I (0-0.03) ng/mL B-Natriuretic Peptide 174 H (0-100) pg/mL 11/20/16 11/20/16 Range/Units 16:26 16:26 WBC (4.3-11.1) K/mcL RBC (3.82-4.97) M/mcL Hgb (11.5-15.4) g/dL Hct (35.3-44.9) % MCV (83.0-100.0) fL MCH (28.0-33.3) pg MCHC (31.6-35.5) g/dL RDW (11.5-14.5) % Plt Count (140-400) K/mcL MPV (9.4-12.4) fL Immature Gran % (0-4) % Seg Neutrophils % % Lymphocytes % % Monocytes % % Eosinophils % % Basophils % % Neutrophils # (1.6-8.9) K/mcL Lymphocytes # (0.6-4.6) K/mcL Monocytes # (0.0-1.3) K/mcL Eosinophils # (0.0-0.6) K/mcL Basophils # (0.0-0.2) K/mcL PT (9.4-12.1) Seconds INR APTT (26.0-36.0) Seconds Sodium 140 (136-145) mEq/L Potassium 4.1 (3.5-4.5) mEq/L Chloride 106 (98-109) mEq/L Carbon Dioxide 28 (19-29) mEq/L BUN 16 (7-20) mg/dL Creatinine 0.75 (0.57-1.11) mg/dL Est GFR ( Amer) > 60 (> 60) Est GFR (Non-Af Amer) > 60 (> 60) BUN/Creatinine Ratio 21 (6-26) Glucose 102 H (70-99) mg/dL Calculated Osmolality 291 (280-300) Calcium 9.0 (8.6-10.8) mg/dL Troponin I 0.00 (0-0.03) ng/mL B-Natriuretic Peptide (0-100) pg/mL - Radiology Data Radiology results reviewed: Yes I reviewed the patient's radiology results. Chest x-ray and CT angiogram reviewed see dictated documentation - EKG Data EKG attestation: Yes I reviewed and interpreted this EKG. EKG shows normal: sinus rhythm, axis, intervals, QRS complexes, ST-T waves Rate: normal Rhythm: NSR [place]/QRS: normal When compared to previous EKG there are: no significant changes Interpretation: no acute changes, unchanged when compared to prior tracing (date ) (09/05/16), other (Repeat EKG completed approximately one hour after the initially in the emergency room showing no acute changes in morphology) Heart Score - Score History: Highly Suspicious EKG: Non Specific repolarisation Disturbance Age: 45-65 Risk Factors: Equal/Greater than 3 risk factor or history of atherosclerotic disease Troponin: Less than normal limit HEART Score Total: 6 Critical Care Time Critical Care Time: Yes Total Critical Care Time: 45 Attestation: Critical care performed: Time is exclusive of separately billable procedures. Time includes: direct patient care, patient reassessment, coordination of patient care, interpretation of data (laboratory data, radiology data, and respiratory data), review of patient's medical records, medical consultation and documentation of patient care. Procedures included in critical care time: Procedures excluded from critical care time:
[2016-11-20 20:17] LABS: Hematocrit 33.7 % (35.3-44.9); Hemoglobin 10.8 g/dL (11.5-15.4); Mean Corpuscular Hemoglobin 28.4 pg (28.0-33.3); Mean Corpuscular Volume 88.7 fL (83.0-100.0); Platelet Count 340 K/mcL (140-400); Red Cell Distribution Width 13.6 % (11.5-14.5)
[2016-11-20 20:23] LABS: INR 1.1; Prothrombin Time 12.4 Seconds (9.4-12.1)
[2016-11-20 20:25] LABS: Activated Partial Thrombo Time 46.5 Seconds (26.0-36.0)
[2016-11-20] MEDS ORDERED: Naloxone 0.4 MG/ML INJ IVP PRN (20:38)
--- NOTE | 2016-11-20 21:13 | Internal Med History&Physical ---
Date of Encounter: 11/20/16 Time of Encounter: 20:30 Assessment and Plan (1) Chest pain Current visit: Yes Status: Acute Patient presenting with chest pain that appears to from angina related to coronary artery disease. Troponins have been negative. Recent negative stress tests. We will treat angina with nitroglycerin. Consult cardiology for further recommendations. Patient had a cardiac catheterization in the past year which showed severe triple-vessel disease and occluded one out of 3 bypass grafts. She will need to have her medications optimized to control her pain. We will defer to cardiology whether she needs diagnostic left heart catheterization. High risk for complications due to use of intravenous nitroglycerin. Patient has been started on IV heparin also by the emergency department. We will continue this until she is seen by cardiology. Qualifiers: Chest pain type: chest pain due to myocardial ischemia Ischemic chest pain type: stable angina pectoris Qualified Code(s): I20.8 - Other forms of angina pectoris (2) CAD (coronary artery disease) Current visit: Yes Status: Chronic Patient with severe coronary artery disease status post bypass grafting. Treat symptomatically. Consult cardiology. Continue home medications including Plavix, Imdur and beta sofi. Qualifiers: Coronary Disease-Associated Artery/Lesion type: bypass graft [place] vs. transplanted heart: [place] heart Associated angina: with stable angina Qualified Code(s): I25.708 - Atherosclerosis of coronary artery bypass graft(s) , unspecified, with other forms of angina pectoris (3) GERD (gastroesophageal reflux disease) Current visit: Yes Status: Chronic Continue PPI. Qualifiers: Esophagitis presence: esophagitis presence not specified Qualified Code(s) : K21.9 - Gastro-esophageal reflux disease without esophagitis (4) Hypertension Current visit: Yes Status: Chronic Blood pressure is well controlled. Continue home medications. Continue to monitor blood pressure Qualifiers: Hypertension type: essential hypertension Qualified Code(s): I10 - Essential (primary) hypertension (5) COPD (chronic obstructive pulmonary disease) Current visit: Yes Status: Chronic Not in acute exacerbation. Will use dual nebs as needed. Continue O2 supplementation. Patient does have chronic respiratory failure related to COPD and pulmonary hypertension. Qualifiers: COPD type: chronic bronchitis Chronic bronchitis type: simple Qualified Code(s): J41.0 - Simple chronic bronchitis (6) Chronic respiratory failure with hypoxia Current visit: Yes Status: Chronic continue O2 supplementation Internal Medicine - H&P: HPI Chief complaint: Chest Pain Admitted From: Emergency Dept Plans for Post Hospital Care: Home History of present illness: Ms. Ratliff is a 60 year old female with a history of coronary artery disease status post coronary artery bypass grafting, scleroderma, hypertension presented to the ER with complaints of chest pain. She had come to the hospital for a clinic appointment with rheumatology and began to feel sick on the way here and this got progressively worse. She describes pain as if someone was stabbing into her chest. She initially received sublingual nitroglycerin with improvement of her chest pain. But the pain returned and chills and she has been placed on nitroglycerin drip in the ER with relief of pain. She also had nausea during this episode. Denies any shortness of breath or palpitations. Complains of pedal edema especially when she wakes up in the morning greater in the right leg. She had a cardiac catheterization in January 2016 and she was found to have severe three-vessel coronary artery disease with 2 out of 3 patent bypass grafts. Her RCA stent was patent. She had 80% stenosis in the right PDA and her saphenous vein graft to the right PDA was occluded. She also had 90% stenosis in the mid LAD and 99% stenosis in the mid circumflex. These findings were unchanged from her prior left heart catheterization in 2014. She had a cardiac stress test earlier this month which was negative for any reversible ischemia. Ejection fraction was 70%. Past Med Surg Social Fam HX - Past Medical History Attestation: Yes The following information was validated with the patient. Source: patient, old records reviewed Medical history: arthritis, asthma, CHF, COPD, coronary artery disease, hyperlipidemia, hypertension, myocardial infarction, osteoporosis, seizures, other (scleroderma) Psychiatric history: anxiety, depression, PTSD - Past Surgical History Surgical History: angioplasty/stent, cholecystectomy, coronary bypass (CABG), hysterectomy, orthopedic, other, LEOPOLDO/BSO, other - Social History Smoking Status: Former smoker Smokeless Tobacco Status: No Alcohol use: rarely Drug use: none - Family History Brother Living Status: Hx Family Cardiac Disorders: Yes (CAD) Daughter Living Status: Still Living Father Adopted: No Living Status: Hx Family Cardiac Disorders: Yes (VT, cardiomegaly) Hx Family Respiratory Disorders: No Hx Family Cancer: No Hx Family GI Disorders: No Hx Family Endocrine Disorder: No Hx Family Neuromuscular Disorders: No Hx Family Neurologic Disorders: No Hx Family HEENT Disorders: No Hx Family Autoimmune Disorders: No Sister Living Status: Hx Family Cardiac Disorders: Yes (CAD) Hx Family Respiratory Disorders: Yes (copd (sister, smoker)) Mother Living Status: Hx Family Cardiac Disorders: Yes (CAD) Son Adopted: No Living Status: Still Living Hx Family Cardiac Disorders: Yes Hx Family Respiratory Disorders: Yes Hx Family Cancer: Yes Hx Family GI Disorders: No Hx Family Endocrine Disorder: Yes Hx Family Neuromuscular Disorders: No Hx Family Neurologic Disorders: No Hx Family HEENT Disorders: No Hx Family Autoimmune Disorders: No Internal Medicine - H&P: Meds LevETIRAcetam [Keppra] 500 mg PO BID #0 12/06/14 [History] Nitroglycerin 0.4 mg SL Q5M PRN 12/31/14 [History] Furosemide [Lasix] 20 mg PO DAILY PRN 05/05/15 [History] Clopidogrel [Plavix] 75 mg PO QAM 12/08/15 [History] Esomeprazole Magnesium [Nexium] 40 mg PO QAM 12/08/15 [History] Ezetimibe [Zetia] 10 mg PO QAM 12/08/15 [History] Gabapentin [Neurontin] 800 mg PO TID 12/08/15 [History] Ranolazine [Ranexa] 1,000 mg PO BID 12/08/15 [History] Denosumab [Prolia (For Outpatient Infusion)] 60 mg SQ [id number] 12/27/15 [History ] Oxygen 4 l IH CONT 12/27/15 [History] Ubidecarenone [Co Q10] 100 mg PO BID 12/27/15 [History] Aspirin 81 mg PO QAM 02/01/16 [History] Gemfibrozil [Lopid] 600 mg PO BIDAC #60 tablet 02/02/16 [Rx] Albuterol Neb [Proventil Neb] 2.5 mg IH TID 06/30/16 [History] Citalopram [CeleXA] 20 mg PO DAILY 06/30/16 [History] Diclofenac Sodium 2 - 3 gm TP 3-4XD PRN 06/30/16 [History] Ergocalciferol (VITAMIN D2) [Vitamin D2] 50,000 unit PO QWEEK 06/30/16 [History] Levalbuterol Tartrate [Xopenex Hfa] 1 puff IH Q4H PRN 06/30/16 [History] Metoprolol XL (24 HR) Succ [Toprol Xl] 12.5 mg PO DAILY 06/30/16 [History] Mycophenolate Mofetil [Cellcept] 1,000 mg PO BID 06/30/16 [History] Tizanidine HCl [Zanaflex] 2 mg PO BID PRN 06/30/16 [History] amLODIPine [Norvasc] 5 mg PO DAILY 06/30/16 [History] Isosorbide MONOnitrate (24 HR) [Imdur] 180 mg PO QAM #60 tab.er.24h 07/01/16 [Rx ] LORazepam [Ativan] 0.25 mg PO HS PRN #10 tablet 07/01/16 [Rx] FLUoxetine HCl [PROzac] 20 mg PO DAILY 11/20/16 [History] Lansoprazole [Prevacid] 30 mg PO BID 11/20/16 [History] SUMAtriptan succinate [Imitrex] 50 mg PO Q2H PRN MDD 100MG 11/20/16 [History] Tramadol HCl [Ultram] 100 mg PO Q6H PRN 11/20/16 [History] Allergies Hydroxychloroquine Allergy (Severe, Verified 11/20/16 17:11) Swelling of Lip/Tongue/Throat epinephrine [From Epi E-Z Pen] Allergy (Verified 11/20/16 17:11) Seizure iron Adverse Reaction (Verified 11/20/16 17:11) Abdominal Pain All Systems PM: A 10-system review of systems was performed and is negative for pertinent findings except as documented above in the HPI. - Constitutional Constitutional: no chills, no fever(s), no night sweats - EENT Eyes: no change in vision, no discharge, no pain, no photophobia Ears: no ear discharge, no ear pain, no tinnitus Nose, mouth and throat: no dysphagia, no nasal discharge, no neck pain, no sore throat - Cardiovascular Cardiovascular ROS IM: chest pain, edema, no diaphoresis, no dyspnea, no lightheadedness, no palpitations, no syncope - Respiratory Respiratory: no cough, no dyspnea, no wheezing, no excessive phlegm production - Gastrointestinal Gastrointestinal: nausea, no abdominal pain, no diarrhea, no hematemesis, no hematochezia, no melena, no vomiting - Genitourinary Genitourinary: no change in urinary stream, no dysuria, no flank pain, no hematuria - Musculoskeletal Musculoskeletal ROS IM: no numbness, no tingling - Integumentary Integumentary IM: no rash, no unusual bruising - Neurological Neurological ROS: no confusion, no convulsions, no focal weakness, no numbness, no tingling, no tremor(s) - Hematologic/Lymphatic Hematologic/Lymphatic: no easy bruising - Constitutional Vitals: Temp Pulse Resp BP Pulse Ox 97.4 F L 61 16 116/40 99 11/20/16 20:38 11/20/16 20:38 11/20/16 20:38 11/20/16 20:38 11/20/16 20:38 General appearance: Present: cooperative, mild distress, A&O X 3, answers questions appropriately - Eye Eye exam: Present: EOMI, PERRL, conjuntiva pink, sclera anicteric - Neck Neck exam general surgery: Present: supple, trachea midline. Absent: lymphadenopathy - Respiratory Respiratory exam: Present: CTAB. Absent: accessory muscle use, rales, rhonchi, wheezes - Cardiovascular Cardiovascular exam: Present: RRR, +S1, +S2. Absent: diastolic murmur, gallop, rubs, systolic murmur - GI/Abdominal GI/Abdominal exam: Present: normal bowel sounds, soft, no peritoneal signs. Absent: distended, tenderness - Extremities Exam Extremities exam: Present: warm, radial pulses palpable and symetrical. Absent : calf tenderness, cyanotic, pedal edema - Neurological Exam Neurological exam: Present: CN II-XII intact, oriented X3, no focal deficits. Absent: facial droop, speech deficit - Skin Skin exam: Present: dry, intact Internal Med - H&P Results - Labs CBC & Chem 7: 11/20/16 20:11 11/20/16 16:26 Labs: Short CBC 11/20/16 Range/Units 20:11 WBC 4.4 (4.3-11.1) K/mcL Hgb 10.8 L (11.5-15.4) g/dL Hct 33.7 L (35.3-44.9) % Plt Count 340 (140-400) K/mcL - EKG Data -: EKG Interpreted by Myself EKG shows normal: sinus rhythm - EKG Data When compared to previous EKG: there is no significant change Interpretation IM: normal EKG - Impressions Impressions Chest X-Ray 11/20/16 16:28 IMPRESSION: No acute process. D/ / Yosef Vincent MD / Yosef Vincent MD Interpreting Provider: Yosef Vincent MD Abdomen/Pelvis CTA 11/20/16 17:26 IMPRESSION: No evidence of acute dissection. 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 Their appearance is unchanged since at least 05/07/2011. Coronary atherosclerosis. Postoperative changes of coronary bypass. Evidence of remote fractures involving the left lateral and anterolateral ribs. Evidence of prior granulomatous disease. D/ / 11/20/2016 19:10:10 Christiano Wild MD / nkechi Interpreting Provider: Christiano Wild MD Chest CTA 11/20/16 17:26
[2016-11-20] MEDS ORDERED: traMADol 50 MG TABLET PO PRN (21:44)
[2016-11-20] MEDS ORDERED: SUMAtriptan succinate 50 MG TABLET PO PRN (21:44)
[2016-11-21 06:08] LABS: Basophils % 0.6 %; Eosinophils # 0.1 K/mcL (0.0-0.6); Eosinophils % 1.7 %; Hematocrit 31.6 % (35.3-44.9); Hemoglobin 10.1 g/dL (11.5-15.4); Immature Granulocytes % 0.3 % (0-4); Lymphocytes # 1.1 K/mcL (0.6-4.6); Lymphocytes % 31.6 %; Mean Corpuscular Hemoglobin 28.7 pg (28.0-33.3); Mean Corpuscular Volume 89.8 fL (83.0-100.0); Mean Platelet Volume 9.5 fL (9.4-12.4); Monocytes # 0.4 K/mcL (0.0-1.3); Monocytes % 11.2 %; Neutrophils # 1.9 K/mcL (1.6-8.9); Platelet Count 319 K/mcL (140-400); Red Blood Count 3.52 M/mcL (3.82-4.97); Red Cell Distribution Width 13.8 % (11.5-14.5); Segmented Neutrophils % 54.6 %
[2016-11-21 06:25] LABS: BUN/Creatinine Ratio 17 (6-26); Blood Urea Nitrogen 12 mg/dL (7-20); Calcium 8.5 mg/dL (8.6-10.8); Carbon Dioxide 30 mEq/L (19-29); Chloride 108 mEq/L (98-109); Glucose 107 mg/dL (70-99); Osmolality,Calculated 292 (280-300); Sodium 141 mEq/L (136-145); eGFR For African Americans > 60 (> 60); eGFR For Non-African Americans > 60 (> 60)
[2016-11-21] MEDS ORDERED: Isosorbide MONOnitrate (24 HR) 60 MG TAB.ER.24H PO SCH (09:00)
--- NOTE | 2016-11-21 11:45 | Internal Med Progress Note ---
<Alfonso Alonzo - Last Filed: 11/21/16 16:24> Date of Encounter: 11/21/16 Time of Encounter: 11:45 - Assessment and plan (1) CAD (coronary artery disease) Current Visit: Yes Status: Chronic Assessment and plan: [facility] 01/2016 - stable CAD, unchanged from prior [facility] 2014. Recent stress test negative for ischemia. Given negative troponins and unchanged ECG, cardiology recommends titration of medical therapy. Resumed Ranexa and increased dose of Imdur Appreciate cardiology recommendations. Qualifiers: Coronary Disease-Associated Artery/Lesion type: bypass graft [place] vs. transplanted heart: [place] heart Associated angina: with stable angina Qualified Code(s): I25.708 - Atherosclerosis of coronary artery bypass graft(s) , unspecified, with other forms of angina pectoris (2) Chest pain Current Visit: Yes Status: Acute Assessment and plan: See above. Recurrent chest pain of unclear significance. Troponin negative x4. No concerning changes on EKG. Limited TTE 07/01/2016: LVEF 60-65%. CTA shows Coronary atherosclerosis. Postoperative changes of coronary bypass. Cardiology to follow outpatient Qualifiers: Chest pain type: unspecified Qualified Code(s): R07.9 - Chest pain, unspecified (3) Hypertension Current Visit: Yes Status: Chronic Assessment and plan: Imdur to 120 mg BID. [place] aspirin/Plavix, BB Cardiology following Qualifiers: Hypertension type: essential hypertension Qualified Code(s): I10 - Essential (primary) hypertension (4) Hyperlipidemia Current Visit: No Status: Chronic Assessment and plan: Continue current lopid and zetia therapy. She is allergic to statins Qualifiers: Hyperlipidemia type: unspecified Qualified Code(s): E78.5 - Hyperlipidemia , unspecified (5) GERD (gastroesophageal reflux disease) Current Visit: Yes Status: Chronic Assessment and plan: Continue Prilosec Qualifiers: Esophagitis presence: esophagitis presence not specified Qualified Code(s) : K21.9 - Gastro-esophageal reflux disease without esophagitis (6) Seizure disorder Current Visit: No Status: Acute Assessment and plan: Continue Keppra. Seizure precautions (7) COPD (chronic obstructive pulmonary disease) Current Visit: Yes Status: Chronic Assessment and plan: Not in acute exacerbation. Patient wears baseline supplemental oxygen 2 L at home Qualifiers: COPD type: chronic bronchitis Chronic bronchitis type: simple Qualified Code(s): J41.0 - Simple chronic bronchitis (8) Morbid obesity with BMI of 40.0-44.9, adult Current Visit: Yes Status: Acute Assessment and plan: Discussed diet and exercise (9) DVT prophylaxis Current Visit: No Status: Acute Assessment and plan: Heparin Patient seen and examined, plan discussed with and agreed upon with Dr. Tilley - Subjective Interval history: Patient resting comfortably in bed. Patient denies current chest pain or shortness of breath today. Family is at bedside - Constitutional Vitals: Temp Pulse Resp BP Pulse Ox 97.8 F 69 18 123/73 98 11/21/16 11:00 11/21/16 11:00 11/21/16 11:00 11/21/16 11:11/21/16 11:00 General appearance: Present: cooperative, A&O X 3, morbidly obese, no acute distress, answers questions appropriately - Head Head exam: Present: atraumatic, normocephalic - Eye Eye exam: Present: PERRL, conjuntiva pink, sclera anicteric Pupils: Present: PERRL - ENT ENT exam: Present: mucous membranes moist, normal oropharynx Additional comments: 3 L oxygen via nasal cannula - Neck Neck exam general surgery: Present: supple, trachea midline. Absent: lymphadenopathy - Respiratory Respiratory exam: Present: CTAB. Absent: accessory muscle use, rales, rhonchi, wheezes - Cardiovascular Cardiovascular exam: Present: RRR, +S1, +S2. Absent: diastolic murmur, gallop, rubs, systolic murmur - GI/Abdominal GI/Abdominal exam: Present: normal bowel sounds, soft, no peritoneal signs. Absent: distended, tenderness - Extremities Exam Extremities exam: Present: warm, radial pulses palpable and symetrical. Absent : calf tenderness, cyanotic, pedal edema - Neurological Exam Neurological exam: Present: CN II-XII intact, oriented X3, no focal deficits. Absent: pronater drift, facial droop, speech deficit - Psychiatric Psychiatric exam: Present: normal affect, normal mood - Skin Skin exam: Present: dry, intact, warm Internal Medicine: Result - Labs CBC & Chem 7: 11/21/16 05:24 11/21/16 05:24 Labs: Short CBC 11/20/16 11/21/16 Range/Units 20:11 05:24 WBC 4.4 3.5 L (4.3-11.1) K/mcL Hgb 10.8 L 10.1 L (11.5-15.4) g/dL Hct 33.7 L 31.6 L (35.3-44.9) % Plt Count 340 319 (140-400) K/mcL Neutrophils # 1.9 (1.6-8.9) K/mcL BMP 11/21/16 05:24 Sodium 141 Potassium 4.0 Chloride 108 Carbon Dioxide 30 H BUN 12 Creatinine 0.69 Glucose 107 H Calcium 8.5 L Cardiac Enzymes 11/20/16 11/21/16 Range/Units 22:01 05:24 Troponin I 0.00 0.00 (0-0.03) ng/mL - ABG Interpretation ABG results: PT/INR, D-dimer PT 12.4 Seconds (9.4-12.1) H 11/20/16 20:11 Consult Discharge Plan - Plan Referrals: Reynaga,Kenneth Kim MD [Primary Care Provider] - <Sergio Tilley P - Last Filed: 11/21/16 18:19> Date of Encounter: 11/21/16 - Constitutional Vitals: Temp Pulse Resp BP Pulse Ox 97.8 F 75 18 127/57 100 11/21/16 15:06 11/21/16 15:06 11/21/16 15:06 11/21/16 15:06 11/21/16 15:06 Internal Medicine: Result - Labs CBC & Chem 7: 11/21/16 05:24 11/21/16 05:24 Labs: Short CBC 11/20/16 11/21/16 Range/Units 20:11 05:24 WBC 4.4 3.5 L (4.3-11.1) K/mcL Hgb 10.8 L 10.1 L (11.5-15.4) g/dL Hct 33.7 L 31.6 L (35.3-44.9) % Plt Count 340 319 (140-400) K/mcL Neutrophils # 1.9 (1.6-8.9) K/mcL BMP 11/21/16 05:24 Sodium 141 Potassium 4.0 Chloride 108 Carbon Dioxide 30 H BUN 12 Creatinine 0.69 Glucose 107 H Calcium 8.5 L Cardiac Enzymes 11/20/16 11/21/1611/21/17 Range/Units 22:01 05:24 11:46 Troponin I 0.00 0.00 0.00 (0-0.03) ng/mL - ABG Interpretation ABG results: PT/INR, D-dimer PT 12.4 Seconds (9.4-12.1) H 11/20/16 20:11 - Attending Attestation I examined this patient and my medical decision-making was reviewed with the Resident Physician. I agree with the documented findings, disposition and treatment plan as described except to the extent set forth below. cardio recommendations appreciated.
--- NOTE | 2016-11-21 12:06 | Cardiology Consult Note ---
Date of Encounter: 11/21/16 Time of Encounter: 11:00 Assessment and Plan (1) Chest pain Current Visit: Yes Status: Acute Recurrent Chest pain symptoms. Known CAD. Troponin negative x3. No concerning changes on EKG. Patient is NSR. Last LHC in the past year showed stable CAD. [facility] 02/2016- 90% mLAD stenosis, MCDONALD-LAD patent. 99% stenosis mCx, SVG-OM1 patent. 50% stenosis pRCA , patent stents in the mRCA. RPDA small. 80% stenosis RPDA, SVG-PDA occluded. Stress test 11/03/16 was negative for ischemia or infarct. TTE 11/03/16 showed preserved LV function. Mild -moderate aortic regurgitation. CTA of the chest shows no acute aortic dissection. Changes suggest chronic dissection, same findings seen in 2012 with no change. Recommend optimizing medical management. Add back ranexa and increase imdur to 120 mg BID. No indication for heparin gtt. D/c NTG gtt. Continue asa, plavix and bb. Currently on lopid and zetia due to reaction to statin therapy. No further cardiac testing at this time. Qualifiers: Chest pain type: unspecified Qualified Code(s): R07.9 - Chest pain, unspecified (2) CAD (coronary artery disease) Current Visit: Yes Status: Chronic H/o 4V CABG in 2008 and previos PCI to the RCA in 2014. Continue asa, plavix, and bb. C/o myalgias with statin therapy. Qualifiers: Coronary Disease-Associated Artery/Lesion type: bypass graft [place] vs. transplanted heart: [place] heart Associated angina: with stable angina Qualified Code(s): I25.708 - Atherosclerosis of coronary artery bypass graft(s) , unspecified, with other forms of angina pectoris Discussion w patient/family: The assessment and plan as outlined above was discussed with the patient and/or family members who expressed understanding and agreement. All questions were answered. Thank you for involving us in the care of your patient. Please call with any questions. History of Present Illness Consult date: 11/21/16 Requesting physician: Blas Lane Consult reason: Chest pain Chief complaint: Chest pain History of present illness: Viri is a 60 y/o with a significant history of CAD, 4V CABG in 2008, previous PCI, BELEN on CPAP, pulmonary hypertension, morbid obesity, limited scleroderma, essential HTN, and hyperlipidemia, and COPD on home O2.. She presents to the hospital after developing chest discomfort described as a vice doctor assistant radiating to her left arm and left neck. She also c/o increasing SOB over the past month. The pain started when she was driving to a dermatology appt yesterday. Once in the dermatology office her pain increased. She told the nursing staff. She was taken to the ED. Initial EKG showed no acute changes. Troponin was negative x 3. She developed pain again last night and was started on a NTG and heparin gtt. She is currently pain free. She underwent stress test and echocardiogram 11/03/16. Stress test was negative for ischemia. TTE showed preserved LV function. Last LHC in January 2016 showed stable CAD compared to LHC in 2014. Severe three vessel CAD. 3/4 patent bypass grafts. SVG to the PDA was occluded. Cardiology consulted for further recommendations. Previous testing: Echocardiogram 10/2014: EF 60%. Mild AI, mild MR, mild TR. No pulmonary hypertension identified. RVSP 30 mmHg. Limited TTE 07/01/2016: LVEF 60-65%. TTE 09/07/2016: LVEF 60-65%. Normal LV, RV size and function. Mild diastolic dysfunction. Mild to moderate aortic regurgitation. No evidence of pulmonary hypertension. RVSP was not well obtained due to poor TR jet. Left heart catheterization 12/14/2014: Left main normal. LAD mid 99% stenosis. Circumflex mid 100% stenosis. Ramus normal. RCA mid 30% stenosis and distal 80- 90% stenosis (2 Dl placed). MCDONALD to mid LAD patent. SVG to OM1 patent. SVG to PDA occluded. Past Med Surg Social Fam HX - Past Medical History Medical history: arthritis, asthma, CHF, COPD, coronary artery disease, hyperlipidemia, hypertension, myocardial infarction, osteoporosis, seizures, other Psychiatric history: anxiety, depression, PTSD - Past Surgical History Surgical History: angioplasty/stent, cholecystectomy, coronary bypass (CABG), hysterectomy, orthopedic, other, LEOPOLDO/BSO, other - Social History Smoking Status: Former smoker Smokeless Tobacco Status: No Alcohol use: rarely Drug use: none - Family History Brother Living Status: Hx Family Cardiac Disorders: Yes (CAD) Daughter Living Status: Still Living Father Adopted: No Living Status: Age at : 42 Cause of : mi Hx Family Cardiac Disorders: Yes Hx Family Respiratory Disorders: No Hx Family Cancer: No Hx Family GI Disorders: No Hx Family Endocrine Disorder: No Hx Family Neuromuscular Disorders: No Hx Family Neurologic Disorders: No Hx Family HEENT Disorders: No Hx Family Autoimmune Disorders: No Sister Living Status: Hx Family Cardiac Disorders: Yes (CAD) Hx Family Respiratory Disorders: Yes (copd (sister, smoker)) Mother Living Status: Age at : 89 Hx Family Cardiac Disorders: Yes Son Adopted: No Living Status: Still Living Hx Family Cardiac Disorders: Yes Hx Family Respiratory Disorders: Yes Hx Family Cancer: Yes Hx Family GI Disorders: No Hx Family Endocrine Disorder: Yes Hx Family Neuromuscular Disorders: No Hx Family Neurologic Disorders: No Hx Family HEENT Disorders: No Hx Family Autoimmune Disorders: No Medications and Allergies LevETIRAcetam [Keppra] 500 mg PO BID #0 12/06/14 [History] Nitroglycerin 0.4 mg SL Q5M PRN 12/31/14 [History] Furosemide [Lasix] 20 mg PO DAILY PRN 05/05/15 [History] Clopidogrel [Plavix] 75 mg PO QAM 12/08/15 [History] Esomeprazole Magnesium [Nexium] 40 mg PO QAM 12/08/15 [History] Ezetimibe [Zetia] 10 mg PO QAM 12/08/15 [History] Gabapentin [Neurontin] 800 mg PO TID 12/08/15 [History] Ranolazine [Ranexa] 1,000 mg PO BID 12/08/15 [History] Denosumab [Prolia (For Outpatient Infusion)] 60 mg SQ [id number] 12/27/15 [History ] Oxygen 4 l IH CONT 12/27/15 [History] Ubidecarenone [Co Q10] 100 mg PO BID 12/27/15 [History] Aspirin 81 mg PO QAM 02/01/16 [History] Gemfibrozil [Lopid] 600 mg PO BIDAC #60 tablet 02/02/16 [Rx] Albuterol Neb [Proventil Neb] 2.5 mg IH TID 06/30/16 [History] Citalopram [CeleXA] 20 mg PO DAILY 06/30/16 [History] Diclofenac Sodium 2 - 3 gm TP 3-4XD PRN 06/30/16 [History] Ergocalciferol (VITAMIN D2) [Vitamin D2] 50,000 unit PO QWEEK 06/30/16 [History] Levalbuterol Tartrate [Xopenex Hfa] 1 puff IH Q4H PRN 06/30/16 [History] Metoprolol XL (24 HR) Succ [Toprol Xl] 12.5 mg PO DAILY 06/30/16 [History] Mycophenolate Mofetil [Cellcept] 1,000 mg PO BID 06/30/16 [History] Tizanidine HCl [Zanaflex] 2 mg PO BID PRN 06/30/16 [History] amLODIPine [Norvasc] 5 mg PO DAILY 06/30/16 [History] Isosorbide MONOnitrate (24 HR) [Imdur] 180 mg PO QAM #60 tab.er.24h 07/01/16 [Rx ] LORazepam [Ativan] 0.25 mg PO HS PRN #10 tablet 07/01/16 [Rx] FLUoxetine HCl [PROzac] 20 mg PO DAILY 11/20/16 [History] Lansoprazole [Prevacid] 30 mg PO BID 11/20/16 [History] SUMAtriptan succinate [Imitrex] 50 mg PO Q2H PRN MDD 100MG 11/20/16 [History] Tramadol HCl [Ultram] 100 mg PO Q6H PRN 11/20/16 [History] Allergies Hydroxychloroquine Allergy (Severe, Verified 11/20/16 17:11) Swelling of Lip/Tongue/Throat epinephrine [From Epi E-Z Pen] Allergy (Verified 11/20/16 17:11) Seizure iron Adverse Reaction (Verified 11/20/16 17:11) Abdominal Pain All Systems Review: A 10-system review of systems was performed and is negative for pertinent findings except as documented above in the HPI. Physical Examination Vital Signs, Last 4 Hours Temp Pulse Resp BP Pulse Ox 11/21/16 11:00 97.8 F 69 18 123/73 98 11/21/16 09:45 97 General: Conversant, No Apparent Distress, Other (Obese female. ) HEENT: Atraumatic, Normocephaly, Mucus Membranes Moist Neck: No JVD, Normal carotid pulses Cardiac: Reg Rate and Rhythm, Normal S1 and S2, No Murmur Lungs: Normal Breath Sounds, No Wheeze, Rales, Rhonchi Neuro: Alert and responsive, No focal deficits noted Abdomen: Soft, Non-Tender Skin: No rashes noted on visualized skin Musculoskeletal: No Chest Wall Tenderness Extremities: No Clubbing, No Cyanosis, No Edema, Normal Pulses Results 11/21/16 05:24 11/21/16 05:24 Lab Results 11/20/16 11/20/16 11/20/16 20:11 20:11 22:01 WBC 4.4 Hgb 10.8 L Hct 33.7 L Plt Count 340 INR 1.1 APTT 46.5 H Sodium Potassium Chloride Carbon Dioxide BUN Creatinine Glucose Calcium Troponin I 0.00 11/21/16 11/21/16 11/21/16 01:20 05:24 05:24 WBC 3.5 L Hgb 10.1 L Hct 31.6 L Plt Count 319 INR APTT 76.2 H D Sodium 141 Potassium 4.0 Chloride 108 Carbon Dioxide 30 H BUN 12 Creatinine 0.69 Glucose 107 H Calcium 8.5 L Troponin I 11/21/16 11/21/16 05:24 09:02 WBC Hgb Hct Plt Count INR APTT 59.4 H Sodium Potassium Chloride Carbon Dioxide BUN Creatinine Glucose Calcium Troponin I 0.00 Chest X-Ray 11/20/16 16:28 IMPRESSION: No acute process. D/ / Yosef Vincent MD / Yosef Vincent MD Interpreting Provider: Yosef Vincent MD Abdomen/Pelvis CTA 11/20/16 17:26 IMPRESSION: No evidence of acute dissection. 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 Their appearance is unchanged since at least 05/07/2011. Coronary atherosclerosis. Postoperative changes of coronary bypass. Evidence of remote fractures involving the left lateral and anterolateral ribs. Evidence of prior granulomatous disease. D/ / 11/20/2016 19:10:10 Christiano Wild MD / nkechi Interpreting Provider: Christiano Wild MD Chest CTA 11/20/16 17:26 IMPRESSION: No evidence of acute dissection. 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 Their appearance is unchanged since at least 05/07/2011. Coronary atherosclerosis. Postoperative changes of coronary bypass. Evidence of remote fractures involving the left lateral and anterolateral ribs. Evidence of prior granulomatous disease. D/ / 11/20/2016 19:10:10 Christiano Wild MD / nkechi Interpreting Provider: Christiano Wild MD - Imaging and Cardiology Stress Test: report reviewed Echo: report reviewed Cardiac cath: report reviewed - EKG Interpretation EKG results cardiology: personally reviewed (SR with no acute ST changes.) Consult Discharge Plan - Plan Referrals: Kenneth Reynaga MD [Primary Care Provider] -
[2016-11-21] MEDS: Ranolazine 500 MG TAB.ER.12H PO SCH ×2 (15:04→21:22)
[2016-11-21] MEDS: FLUoxetine 20 MG CAPSULE PO SCH (15:05)
[2016-11-21] MEDS: (Ezetimibe [Zetia] 10 MG) PO SCH (15:06)
[2016-11-21] MEDS: Metoprolol XL (24 HR) Succ 25 MG TAB.ER.24H PO SCH (15:07)
--- NOTE | 2016-11-21 17:42 | Electrocardiograph Report ---
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
--- NOTE | 2016-11-21 17:45 | Electrocardiograph Report ---
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
[2016-11-21] MEDS: levETIRAcetam 250 MG TABLET PO SCH (19:16)
[2016-11-21] MEDS: *HR* Heparin 5,000 UNIT/ML VIAL SQ SCH (19:16)
[2016-11-21] MEDS: Isosorbide MONOnitrate (24 HR) 30 MG TAB.ER.24H PO SCH (21:22)
[2016-11-22 05:25] LABS: Hemoglobin 10.5 g/dL (11.5-15.4); Mean Corpuscular HGB Conc 30.9 g/dL (31.6-35.5); Mean Corpuscular Hemoglobin 27.6 pg (28.0-33.3); Mean Corpuscular Volume 89.2 fL (83.0-100.0); Mean Platelet Volume 9.1 fL (9.4-12.4); Platelet Count 320 K/mcL (140-400); Red Blood Count 3.81 M/mcL (3.82-4.97); Red Cell Distribution Width 13.6 % (11.5-14.5)
[2016-11-22] MEDS: levETIRAcetam 250 MG TABLET PO SCH (05:40)
[2016-11-22] MEDS: *HR* Heparin 5,000 UNIT/ML VIAL SQ SCH (05:40)
[2016-11-22 07:32] LABS: BUN/Creatinine Ratio 22 (6-26); Blood Urea Nitrogen 14 mg/dL (7-20); Calcium 8.3 mg/dL (8.6-10.8); Carbon Dioxide 27 mEq/L (19-29); Chloride 109 mEq/L (98-109); Glucose 100 mg/dL (70-99); Osmolality,Calculated 289 (280-300); Sodium 139 mEq/L (136-145); eGFR For African Americans > 60 (> 60); eGFR For Non-African Americans > 60 (> 60)
--- NOTE | 2016-11-22 07:50 | Electrocardiograph Report ---
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
[2016-11-22] MEDS: Isosorbide MONOnitrate (24 HR) 30 MG TAB.ER.24H PO SCH (08:40)
[2016-11-22] MEDS: Metoprolol XL (24 HR) Succ 25 MG TAB.ER.24H PO SCH (08:41)
[2016-11-22] MEDS: FLUoxetine 20 MG CAPSULE PO SCH (08:41)
[2016-11-22] MEDS: (Ezetimibe [Zetia] 10 MG) PO SCH (08:42)
[2016-11-22] MEDS: Ranolazine 500 MG TAB.ER.12H PO SCH (08:42)
--- NOTE | 2016-11-22 10:22 | Discharge Summary ---
<Alfonso Alonzo - Last Filed: 11/22/16 16:26> Date of Encounter: 11/22/16 Time of Encounter: 10:22 - Discharge Diagnosis (1) CAD (coronary artery disease) Priority: Primary Status: Chronic Qualifiers: Coronary Disease-Associated Artery/Lesion type: bypass graft [place] vs. transplanted heart: [place] heart Associated angina: with stable angina Qualified Code(s): I25.708 - Atherosclerosis of coronary artery bypass graft(s) , unspecified, with other forms of angina pectoris (2) Chest pain Priority: Primary Status: Acute Qualifiers: Chest pain type: unspecified Qualified Code(s): R07.9 - Chest pain, unspecified (3) Hypertension Priority: Primary Status: Chronic Qualifiers: Hypertension type: essential hypertension Qualified Code(s): I10 - Essential (primary) hypertension (4) Hyperlipidemia Priority: Primary Status: Chronic Qualifiers: Hyperlipidemia type: unspecified Qualified Code(s): E78.5 - Hyperlipidemia , unspecified (5) GERD (gastroesophageal reflux disease) Priority: Secondary Status: Chronic Qualifiers: Esophagitis presence: esophagitis presence not specified Qualified Code(s) : K21.9 - Gastro-esophageal reflux disease without esophagitis (6) Seizure disorder Priority: Secondary Status: Acute (7) COPD (chronic obstructive pulmonary disease) Priority: Secondary Status: Chronic Qualifiers: COPD type: chronic bronchitis Chronic bronchitis type: simple Qualified Code(s): J41.0 - Simple chronic bronchitis (8) Morbid obesity with BMI of 40.0-44.9, adult Priority: Secondary Status: Acute (9) DVT prophylaxis Priority: Primary Status: Acute - Discharge Medications Prescriptions: Isosorbide MONOnitrate (24 HR) [Imdur] 120 mg PO BID #60 tab.er.24h Miscellaneous Medical Supply [Attachment Set] 1 each MC DAILY #1 miscell Ranolazine [Ranexa] 1,000 mg PO BID #60 tab Home Medications: LevETIRAcetam [Keppra] 500 mg PO BID #0 12/06/14 [History] Nitroglycerin 0.4 mg SL Q5M PRN 12/31/14 [History] Furosemide [Lasix] 20 mg PO DAILY PRN 05/05/15 [History] Clopidogrel [Plavix] 75 mg PO QAM 12/08/15 [History] Esomeprazole Magnesium [Nexium] 40 mg PO QAM 12/08/15 [History] Ezetimibe [Zetia] 10 mg PO QAM 12/08/15 [History] Gabapentin [Neurontin] 800 mg PO TID 12/08/15 [History] Ranolazine [Ranexa] 1,000 mg PO BID 12/08/15 [History] Denosumab [Prolia (For Outpatient Infusion)] 60 mg SQ [id number] 12/27/15 [History ] Oxygen 4 l IH CONT 12/27/15 [History] Ubidecarenone [Co Q10] 100 mg PO BID 12/27/15 [History] Aspirin 81 mg PO QAM 02/01/16 [History] Gemfibrozil [Lopid] 600 mg PO BIDAC #60 tablet 02/02/16 [Rx] Albuterol Neb [Proventil Neb] 2.5 mg IH TID 06/30/16 [History] Citalopram [CeleXA] 20 mg PO DAILY 06/30/16 [History] Diclofenac Sodium 2 - 3 gm TP 3-4XD PRN 06/30/16 [History] Ergocalciferol (VITAMIN D2) [Vitamin D2] 50,000 unit PO QWEEK 06/30/16 [History] Levalbuterol Tartrate [Xopenex Hfa] 1 puff IH Q4H PRN 06/30/16 [History] Metoprolol XL (24 HR) Succ [Toprol Xl] 12.5 mg PO DAILY 06/30/16 [History] Mycophenolate Mofetil [Cellcept] 1,000 mg PO BID 06/30/16 [History] Tizanidine HCl [Zanaflex] 2 mg PO BID PRN 06/30/16 [History] amLODIPine [Norvasc] 5 mg PO DAILY 06/30/16 [History] LORazepam [Ativan] 0.25 mg PO HS PRN #10 tablet 07/01/16 [Rx] FLUoxetine HCl [Prozac] 20 mg PO DAILY 11/20/16 [History] Lansoprazole [Prevacid] 30 mg PO BID 11/20/16 [History] SUMAtriptan succinate [Imitrex] 50 mg PO Q2H PRN MDD 100MG 11/20/16 [History] Tramadol HCl [Ultram] 100 mg PO Q6H PRN 11/20/16 [History] Isosorbide MONOnitrate (24 HR) [Imdur] 120 mg PO BID #60 tab.er.24h 11/22/16 [Rx ] Miscellaneous Medical Supply [Attachment Set] 1 each MC DAILY #1 miscell [Rx] Ranolazine [Ranexa] 1,000 mg PO BID #60 tab 11/22/16 [Rx] levETIRAcetam [Keppra] 500 mg PO Q12HR tab 11/22/16 [Rx] Allergies/Adverse Reactions: Allergies Hydroxychloroquine Allergy (Severe, Verified 11/20/16 17:11) Swelling of Lip/Tongue/Throat epinephrine [From Epi E-Z Pen] Allergy (Verified 11/20/16 17:11) Seizure iron Adverse Reaction (Verified 11/20/16 17:11) Abdominal Pain Procedures/tests Complete & Pending: Procedures Performed prior 72 hours Category Date Time Status ECG 12 lead ECG [ECG] Routine Y 11/21/16 02:35 Completed Date of admission: 11/20/16 20:02 Primary care physician: Kenneth Reynaga MD Consults: 11/20/16 23:25 Consult to Cardiology [CONS] Routine Comment: Consulting Provider: Cardiology Beverley Reason for Consult: Chest pain hx of CAD s/p CABG Call Completed: No Discharging clinician: Sergio Tilley Anticipated date of discharge: 11/22/16 - Patient Status Disposition: Home, Self-Care Condition: Good Functional capacity at discharge: independent ambulation (use bedside commode) Overall status at discharge: patient is back to baseline - Discharge Instructions Instructions: Isosorbide Mononitrate (By mouth), Ranolazine (By mouth), Chest Pain (DC), Chronic Obstructive Pulmonary Disease (DC) Follow Up With: Kenneth Reynaga MD [Primary Care Provider] - 11/29/16 2:20 pm Dorothy Rodarte CNP [Advanced Practice Nurse] - 12/05/16 2:20 pm (CARDIOLOGY FOLLOW UP APPOINTMENT) Additional Instructions: Resume Ranexa and increased dose of Imdur to 120 mg twice a day. Continue aspirin, Plavix, Lopid and Zetia as prescribed Follow up with primary care physician and cardiology within 1-2 weeks - Diet and Activity Activity: increase activity as tolerated, return to work once cleared by your PCP/specialist Diet: low fat, low cholesterol Hospital course: Ms. Ratliff is a 60 year old female with a PMH of CAD, 4V CABG in 2008, previous PCI, BELEN on CPAP, pulmonary hypertension, morbid obesity, limited scleroderma, essential HTN, and hyperlipidemia, and COPD on 2L home O2 that presented to the hospital after developing chest discomfort described as a vice access liaison radiating to her left arm and left neck. She also c/o increasing SOB over the past month. Initial EKG showed no acute changes. Troponin was negative x 3. She was started on a NTG and heparin gtt. She underwent stress test and echocardiogram . Stress test was negative for ischemia. TTE showed preserved LV function. Last LHC in January 2016 showed stable CAD compared to LHC in 2014. Severe three vessel CAD. 3/4 patent bypass grafts. SVG to the PDA was occluded. Currently on lopid and zetia due to reaction to statin therapy. Cardiology recommended increasing Imdur to 120 mg twice a day and restarting Ranexa. She was instructed to continue aspirin, Plavix, and beta sofi. Patient to follow up with cardiology and PCP upon discharge. - Time Spent with Patient Total time spent providing and/or coordinating discharge services: - Constitutional Vitals: Temp Pulse Resp BP Pulse Ox 97.9 F 66 16 102/47 100 11/22/16 07:30 11/22/16 07:30 11/22/16 07:30 11/22/16 07:30 11/22/16 07:30 General appearance: Present: cooperative, A&O X 3, morbidly obese, no acute distress, answers questions appropriately - Head Head exam: Present: atraumatic, normocephalic - Eye Eye exam: Present: PERRL, conjuntiva pink, sclera anicteric Pupils: Present: PERRL - ENT ENT exam: Present: mucous membranes moist, normal oropharynx - Neck Neck exam general surgery: Present: supple, trachea midline. Absent: lymphadenopathy - Respiratory Respiratory exam: Present: CTAB. Absent: accessory muscle use, rales, rhonchi, wheezes - Cardiovascular Cardiovascular exam: Present: RRR, +S1, +S2. Absent: diastolic murmur, gallop, rubs, systolic murmur - GI/Abdominal GI/Abdominal exam: Present: normal bowel sounds, soft, no peritoneal signs. Absent: distended, tenderness - Extremities Exam Extremities exam: Present: warm, radial pulses palpable and symetrical. Absent : calf tenderness, cyanotic, pedal edema - Neurological Exam Neurological exam: Present: CN II-XII intact, oriented X3, no focal deficits. Absent: pronater drift, facial droop, speech deficit - Psychiatric Psychiatric exam: Present: normal affect, normal mood - Skin Skin exam: Present: dry, intact, warm <Treva,Sergio P - Last Filed: 11/22/16 18:53> Date of Encounter: 11/22/16 Procedures/tests Complete & Pending: Procedures Performed prior 72 hours Category Date Time Status ECG 12 lead ECG [ECG] Routine Y 11/21/16 02:35 Completed Date of admission: 11/20/16 20:02 Primary care physician: Kenneth Reynaga MD Consults: 11/20/16 23:25 Consult to Cardiology [CONS] Routine Comment: Consulting Provider: Cardiology Beverley Reason for Consult: Chest pain hx of CAD s/p CABG Call Completed: No Hospital course: Ms. Ratliff is a 60 year old female - Time Spent with Patient Total time spent providing and/or coordinating discharge services: - Constitutional Vitals: Temp Pulse Resp BP Pulse Ox 98.1 F 69 16 91/48 100 11/22/16 11:40 11/22/16 11:40 11/22/16 11:40 11/22/16 11:40 11/22/16 11:40 - Attending Attestation I examined this patient and my medical decision-making was reviewed with the Resident Physician. I agree with the documented findings, disposition and treatment plan as described except to the extent set forth below. patient is on 2 PPI as home med PCP to prefer one
[2016-11-22 11:48] VITALS: BP 91/48
== END 2016-11-22 15:45 | disposition home or self-care (01) ==
LOC: 2NENU 16:19 → EMEROO 16:19 → SUATTDRO 20:02 → 2NENU 20:17
PROVIDERS: ADMIT Internal Medicine; ATTEND Internal Medicine

== ENCOUNTER 2016-12-23 15:26 | Inpatient (IN) ==
[2016-12-23] MEDS ORDERED: Ondansetron 4 MG/2 ML VIAL IVP ONE (15:59)
[2016-12-23] MEDS ORDERED: *HR* Morphine 2 MG/ML SYRINGE IVP ONE ×2 (15:59→17:23)
[2016-12-23 16:37] LABS: Basophils % 0.4 %; Eosinophils % 0.2 %; Hematocrit 39.4 % (35.3-44.9); Hemoglobin 12.7 g/dL (11.5-15.4); Immature Granulocytes % 0.6 % (0-4); Immature Platelets 1.5 % (1.1-6.1); Lymphocytes # 0.7 K/mcL (0.6-4.6); Lymphocytes % 15.1 %; Mean Corpuscular HGB Conc 32.2 g/dL (31.6-35.5); Mean Corpuscular Hemoglobin 27.5 pg (28.0-33.3); Mean Corpuscular Volume 85.5 fL (83.0-100.0); Mean Platelet Volume 9.1 fL (9.4-12.4); Monocytes # 0.4 K/mcL (0.0-1.3); Monocytes % 7.6 %; Neutrophils # 3.7 K/mcL (1.6-8.9); Platelet Count 355 K/mcL (140-400); Red Blood Count 4.61 M/mcL (3.82-4.97); Red Cell Distribution Width 14.2 % (11.5-14.5); Segmented Neutrophils % 76.1 %
[2016-12-23 16:52] LABS: Alanine Aminotransferase 24 Units/L (0-55); Albumin 3.8 g/dL (3.5-5.0); Albumin/Globulin Ratio 1.1 (1.1-2.2); Alkaline Phosphatase 101 Units/L (38-126); Aspartate Amino Transferase 25 Units/L (5-34); BUN/Creatinine Ratio 20 (6-26); Bilirubin,Direct 0.2 mg/dL (0.0-0.5); Bilirubin,Indirect 0.1 mg/dL (0.0-1.2); Bilirubin,Total 0.3 mg/dL (0.2-1.2); Blood Urea Nitrogen 12 mg/dL (7-20); Calcium 8.9 mg/dL (8.6-10.8); Carbon Dioxide 20 mEq/L (19-29); Chloride 111 mEq/L (98-109); Globulin 3.6 g/dL (2.4-3.5); Glucose 96 mg/dL (70-99); Lipase 13 Units/L (8-78); Osmolality,Calculated 296 (280-300); Potassium 3.6 mEq/L (3.5-4.5); Sodium 143 mEq/L (136-145); Total Protein 7.4 g/dL (6.0-8.3); eGFR For African Americans > 60 (> 60); eGFR For Non-African Americans > 60 (> 60)
[2016-12-23] MEDS ORDERED: Aspirin 81 MG TAB.CHEW PO ONE (16:52)
--- NOTE | 2016-12-23 16:53 | Emergency Department Note ---
Disposition Clinical Impression: Epigastric pain, EKG abnormalities, Dehydration Nausea and vomiting Qualifiers: Vomiting type: unspecified Vomiting Intractability: intractable Qualified Code( s): R11.2 - Nausea with vomiting, unspecified CAD (coronary artery disease) Qualifiers: Coronary Disease-Associated Artery/Lesion type: unspecified vessel or lesion type [place] vs. transplanted heart: unspecified whether [place] or transplanted heart Associated angina: with other forms of angina Qualified Code(s): I25.118 - Atherosclerotic heart disease of [place] coronary artery with other forms of angina pectoris Disposition: Admitted As Inpatient Condition: Fair Time of Disposition: 18:50 General Adult HPI - General Chief complaint: ED Nausea/Vomiting/Diarrhea Stated complaint: nausea/vomiting Time Seen by Provider: 12/23/16 15:29 Source: EMS Mode of arrival: ambulatory Limitations: no limitations Nursing Notes Reviewed: Yes Vital Signs Reviewed: Yes - History of Present Illness HPI Narrative: Patient is a 60-year-old female with a past medical history of a quadruple bypass with 5 stents placed, seizures, CHF, COPD presenting with nausea vomiting and epigastric abdominal pain that has been going on for the past 5 days. The patient states she is unable to keep any of her medicines, food or liquid down. She denies any fevers, chills, chest pain, shortness of breath, lower extremity swelling. Denies any sick contacts. Pain Scale: 10 - Related Data Home Medications Medication Instructions Recorded Confirmed LevETIRAcetam [Keppra] 500 mg PO BID #0 12/06/14 11/20/16 Nitroglycerin 0.4 mg SL Q5M PRN 12/31/14 11/20/16 Furosemide [Lasix] 20 mg PO DAILY PRN 05/05/15 06/30/16 Clopidogrel [Plavix] 75 mg PO QAM 12/08/15 11/20/16 Esomeprazole Magnesium [Nexium] 40 mg PO QAM 12/08/15 11/20/16 Ezetimibe [Zetia] 10 mg PO QAM 12/08/15 11/20/16 Gabapentin [Neurontin] 800 mg PO TID 12/08/15 06/30/16 Ranolazine [Ranexa] 1,000 mg PO BID 12/08/15 11/20/16 Denosumab [Prolia (For Outpatient 60 mg SQ [id number] 12/27/15 06/30/16 Infusion)] Oxygen 4 l IH CONT 12/27/15 11/20/16 Ubidecarenone [Co Q10] 100 mg PO BID 12/27/15 06/30/16 Aspirin 81 mg PO QAM 02/01/16 06/30/16 Albuterol Neb [Proventil Neb] 2.5 mg IH TID 06/30/16 06/30/16 Citalopram [CeleXA] 20 mg PO DAILY 06/30/16 06/30/16 Diclofenac Sodium 2 - 3 gm TP 3-4XD PRN 06/30/16 06/30/16 Ergocalciferol (VITAMIN D2) 50,000 unit PO QWEEK 06/30/16 06/30/16 [Vitamin D2] Levalbuterol Tartrate [Xopenex Hfa] 1 puff IH Q4H PRN 06/30/16 06/30/16 Metoprolol XL (24 HR) Succ [Toprol 12.5 mg PO DAILY 06/30/16 11/20/16 Xl] Mycophenolate Mofetil [Cellcept] 1,000 mg PO BID 06/30/16 06/30/16 Tizanidine HCl [Zanaflex] 2 mg PO BID PRN 06/30/16 11/20/16 amLODIPine [Norvasc] 5 mg PO DAILY 06/30/16 11/20/16 FLUoxetine HCl [Prozac] 20 mg PO DAILY 11/20/16 11/20/16 Lansoprazole [Prevacid] 30 mg PO BID 11/20/16 11/20/16 SUMAtriptan succinate [Imitrex] 50 mg PO Q2H PRN MDD 100MG 11/20/16 11/20/16 Tramadol HCl [Ultram] 100 mg PO Q6H PRN 11/20/16 11/20/16 Previous Rx's Medication Instructions Recorded Gemfibrozil [Lopid] 600 mg PO BIDAC #60 tablet 02/02/16 LORazepam [Ativan] 0.25 mg PO HS PRN #10 tablet 07/01/16 Isosorbide MONOnitrate (24 HR) 120 mg PO BID #60 tab.er.24h 11/22/16 [Imdur] Miscellaneous Medical Supply 1 each DAILY #1 miscell 11/22/16 [Attachment Set] Ranolazine [Ranexa] 1,000 mg PO BID #60 tab 11/22/16 levETIRAcetam [Keppra] 500 mg PO Q12HR tab 11/22/16 Allergies Allergy/AdvReac Type Severity Reaction Status Date / Time Hydroxychloroquine Allergy Severe Swelling Verified 12/23/16 15:33 of Lip/Tongue/Throat epinephrine Allergy Seizure Verified 12/23/16 15:33 [From Epi E-Z Pen] iron AdvReac Abdominal Verified 12/23/16 15:33 Pain All systems ED: reviewed and negative except as stated. Constitutional: Denies: fever, chills Cardiovascular: Denies: chest pain, palpitations, dyspnea on exertion Respiratory: Denies: cough, dyspnea Gastrointestinal: Reports: abdominal pain, nausea, vomiting, diarrhea (Patient states she isn't having mutliple bowel movements a day, but they are "clear" ) Genitourinary: Denies: urgency, dysuria Musculoskeletal: Denies: back pain Neurological: Denies: headache, weakness Past Medical History - Past Medical History Medical history: Reports: arthritis, asthma, CHF, COPD, coronary artery disease , hyperlipidemia, hypertension, myocardial infarction, osteoporosis, seizures, other Surgical history: Reports: angioplasty/stent, cholecystectomy, coronary bypass ( CABG), hysterectomy, orthopedic, other, LEOPOLDO/BSO, other Psychiatric history: Reports: anxiety, depression, PTSD DIRECTOR GOVERNMENT history: Reports: no DIRECTOR GOVERNMENT history - Social History Smoking Status: Former smoker Smokeless Tobacco Status: No Alcohol use: Reports: rarely Drug use: Reports: none Physical Exam Patient appears to be in mild distress. She is holding pressure on her epigastric area. Speaks in full sentences. - General Limitations: no limitations General appearance: alert, in no apparent distress - Head Head exam: atraumatic, normocephalic, normal inspection - Eye Eye exam: Present: normal appearance, PERRL, EOMI - ENT ENT exam: normal exam, normal oropharynx, mucous membranes moist - Neck Neck exam: Present: normal inspection, full ROM, trachea midline - Chest Chest inspection: Present: normal inspection, symmetric chest wall rise - Respiratory Respiratory exam: Present: normal lung sounds bilaterally. Absent: respiratory distress - Cardiovascular Cardiovascular exam: Present: regular rate, normal rhythm, normal heart sounds - Abdominal Exam Abdominal exam: Present: soft, tenderness, guarding (voluntary), normal bowel sounds. Absent: distention, rebound, rigidity Abdominal tenderness: Present: epigastrium, mild - Extremities Exam Extremities exam: Present: normal inspection, full ROM. Absent: tenderness - Expanded Lower Extremity Exam Neurovascular/Tendon exam: Present: normal capillary refill. Absent: pulse deficit - Back Exam Back exam: Present: normal inspection, full ROM. Absent: tenderness - Neurological Exam Neurological exam: Present: alert, oriented X3 - Psychiatric Psychiatric exam: Present: normal affect, normal mood - Skin Skin exam: Present: warm, dry, intact, normal color Course Course Narrative: Patient is a 60 year old female with a past medical history of catheterization and stent placement 1-2 years ago, quadruple bypass, seizure disorder, CHF, and COPD presenting with N/V for the past 5 days and possibly diarrhea. The patient states she has not been able keep any of her medications down as well she is on Plavix, aspirin, nitro, and anti-epileptic medications. Plan is to treat the patient's nausea give her fluids while she is here and also medication for her epigastric pain order abdominal labs including LFTs and lipase on this patient she has a history of a cholecystectomy and appendectomy. I will also order a CBC and a BMP to check electrolytes and for any leukocytosis. Due the patient's cardiac history and the pain being epigastric and also order a troponin, EKG and chest x-ray. - Reevaluation(s) Reevaluation #1: Patient's EKG done at 16:40 showed T-wave inversions in lead V1- V4. These are new when compared to her old EKG done on November [id number]. With these EKG changes and the patient unable to keep her medications down for the past 5 days and plan is to admit the patient. The patient also had a recent hospital admission in late October of this year. I am concerned for possible C. diff infection as well, I have requested a stool sample from the patient. Her admission in October 2016 was for chest pain. She was fully evaluated by a medical laboratory manager at that time. Said to have stable CAD. Time: 17:00 Reevaluation #2: The patient's abdominal pain not improving with pain medications and her being a mild distress I ordered a CT of her abdomen and pelvis with IV contrast she has normal kidney function. Time: 17:25 Vital Signs Temperature 97.8 F 12/23/16 15:29 Pulse Rate 79 12/23/16 15:29 Respiratory Rate 16 12/23/16 15:29 Blood Pressure 130/75 12/23/16 15:29 O2 Sat by Pulse Oximetry 97 12/23/16 15:29 Temperature 97.8 F 12/23/16 15:29 Pulse Rate 79 12/23/16 18:20 Respiratory Rate 16 12/23/16 18:20 Blood Pressure 132/75 12/23/16 18:20 O2 Sat by Pulse Oximetry 97 12/23/16 18:20 Oxygen Delivery Oxygen Delivery Room Air Medical Decision Making - Medical Records Medical records reviewed: Yes I reviewed the patient's medical records. - Lab Data Lab results reviewed: Yes I reviewed the patient's lab results. Result diagrams: 12/23/16 16:29 12/23/16 16:29 Lab Results 12/23/16 12/23/16 12/23/16 Range/Units 16:29 16:29 16:29 WBC 4.8 (4.3-11.1) K/mcL RBC 4.61 (3.82-4.97) M/mcL Hgb 12.7 (11.5-15.4) g/dL Hct 39.4 (35.3-44.9) % MCV 85.5 (83.0-100.0) fL MCH 27.5 L (28.0-33.3) pg MCHC 32.2 (31.6-35.5) g/dL RDW 14.2 (11.5-14.5) % Plt Count 355 (140-400) K/mcL MPV 9.1 L (9.4-12.4) fL Immature Gran % 0.6 (0-4) % Seg Neutrophils % 76.1 % Lymphocytes % 15.1 % Monocytes % 7.6 % Eosinophils % 0.2 % Basophils % 0.4 % Neutrophils # 3.7 (1.6-8.9) K/mcL Lymphocytes # 0.7 (0.6-4.6) K/mcL Monocytes # 0.4 (0.0-1.3) K/mcL Eosinophils # 0.0 (0.0-0.6) K/mcL Basophils # 0.0 (0.0-0.2) K/mcL Immature Plt Fraction 1.5 (1.1-6.1) % Sodium 143 (136-145) mEq/L Potassium 3.6 (3.5-4.5) mEq/L Chloride 111 H (98-109) mEq/L Carbon Dioxide 20 (19-29) mEq/L BUN 12 (7-20) mg/dL Creatinine 0.61 (0.57-1.11) mg/dL Est GFR ( Amer) > 60 (> 60) Est GFR (Non-Af Amer) > 60 (> 60) BUN/Creatinine Ratio 20 (6-26) Glucose 96 (70-99) mg/dL Calculated Osmolality 296 (280-300) Calcium 8.9 (8.6-10.8) mg/dL Total Bilirubin 0.3 (0.2-1.2) mg/dL Direct Bilirubin 0.2 (0.0-0.5) mg/dL Indirect Bilirubin 0.1 (0.0-1.2) mg/dL AST 25 (5-34) Units/L ALT 24 (0-55) Units/L Alkaline Phosphatase 101 (38-126) Units/L Troponin I 0.00 (0-0.03) ng/mL Serum Total Protein 7.4 (6.0-8.3) g/dL Albumin 3.8 (3.5-5.0) g/dL Globulin 3.6 H (2.4-3.5) g/dL Albumin/Globulin Ratio 1.1 (1.1-2.2) Lipase 13 (8-78) Units/L Urine Color (Yellow) Urine Clarity (Clear) Urine pH (5.0-8.0) pH Units Ur Specific [place] (1.010-1.025) Urine Protein (Neg-Trace) mg/dL Urine Glucose (UA) (Normal) mg/dL Urine Ketones (Negative) mg/dL Urine Blood (Negative) Urine Nitrite (Negative) Urine Bilirubin (Negative) Urine Urobilinogen (Normal) mg/dL Ur Leukocyte Esterase (Negative) Urine Microscopic RBC (0-3) per hpf Urine Microscopic WBC (0-3) per hpf Ur Squamous Epith Cells (None-Few) per lpf Urine Bacteria (None-Few) per hpf Urine Mucus (Few) Ur Culture Indicated? (NO) 12/23/16 Range/Units 17:31 WBC (4.3-11.1) K/mcL RBC (3.82-4.97) M/mcL Hgb (11.5-15.4) g/dL Hct (35.3-44.9) % MCV (83.0-100.0) fL MCH (28.0-33.3) pg MCHC (31.6-35.5) g/dL RDW (11.5-14.5) % Plt Count (140-400) K/mcL MPV (9.4-12.4) fL Immature Gran % (0-4) % Seg Neutrophils % % Lymphocytes % % Monocytes % % Eosinophils % % Basophils % % Neutrophils # (1.6-8.9) K/mcL Lymphocytes # (0.6-4.6) K/mcL Monocytes # (0.0-1.3) K/mcL Eosinophils # (0.0-0.6) K/mcL Basophils # (0.0-0.2) K/mcL Immature Plt Fraction (1.1-6.1) % Sodium (136-145) mEq/L Potassium (3.5-4.5) mEq/L Chloride (98-109) mEq/L Carbon Dioxide (19-29) mEq/L BUN (7-20) mg/dL Creatinine (0.57-1.11) mg/dL Est GFR ( Amer) (> 60) Est GFR (Non-Af Amer) (> 60) BUN/Creatinine Ratio (6-26) Glucose (70-99) mg/dL Calculated Osmolality (280-300) Calcium (8.6-10.8) mg/dL Total Bilirubin (0.2-1.2) mg/dL Direct Bilirubin (0.0-0.5) mg/dL Indirect Bilirubin (0.0-1.2) mg/dL AST (5-34) Units/L ALT (0-55) Units/L Alkaline Phosphatase (38-126) Units/L Troponin I (0-0.03) ng/mL Serum Total Protein (6.0-8.3) g/dL Albumin (3.5-5.0) g/dL Globulin (2.4-3.5) g/dL Albumin/Globulin Ratio (1.1-2.2) Lipase (8-78) Units/L Urine Color Yellow (Yellow) Urine Clarity Clear (Clear) Urine pH 6.0 (5.0-8.0) pH Units Ur Specific [place] 1.023 (1.010-1.025) Urine Protein 30 H (Neg-Trace) mg/dL Urine Glucose (UA) Normal (Normal) mg/dL Urine Ketones >=160 H (Negative) mg/dL Urine Blood Negative (Negative) Urine Nitrite Negative (Negative) Urine Bilirubin Small H (Negative) Urine Urobilinogen Normal (Normal) mg/dL Ur Leukocyte Esterase Small H (Negative) Urine Microscopic RBC 0-3 (0-3) per hpf Urine Microscopic WBC 3-5 H (0-3) per hpf Ur Squamous Epith Cells Moderate H (None-Few) per lpf Urine Bacteria Few (None-Few) per hpf Urine Mucus Moderate H (Few) Ur Culture Indicated? YES A (NO) - Radiology Data Radiology results reviewed: Yes I reviewed the patient's radiology results. Chest X-Ray 12/23/16 16:01 IMPRESSION: Post CABG changes with no acute abnormality. D/ / 12/23/2016 16:54:53 [facility] Interpreting Provider: Wagner Macias MD - EKG Data EKG #1 EKG attestation: Yes I reviewed and interpreted this EKG. EKG results narrative: I interviewed his EKG done at 16:40. EKG is sinus rhythm at a rate of 74 bpm. There is normal axis. FL is 194, QRS is 90, QT is 420 0 with a normal limits. Signs of hypertrophy. Patient does have new T-wave inversions in lead V1-5 when compared to her EKG done on 11/21/2016. Attestation Statement - Attestation Attestation: I personally interviewed and examined this patient and my medical decision- making was reviewed with the Resident Physician, Dr. Cruz and Dr. Smith. I agree with the documented findings, disposition and treatment plan as described except to the extent set forth below. Patient is a 60-year-old white female with a history of extensive coronary artery disease who is status post CABG as well as 5 prior left heart catheter with stent placement, who presents to the emergency department with a five-day history of nausea vomiting and diarrhea with epigastric abdominal pain. Patient is status post cholecystectomy and appendectomy. Patient states that she has been sick with vomiting and unable to tolerate any food including all of her medications for the past 5 days. Patient arrives with stable vital signs but looks clinically dry. Patient denies any recent antibiotic use, no suspicious food intake, no recent travel. No ill contacts at home. Patient's radiating into 10 severity epigastric discomfort which is nonradiating and denies any chest pain pressure or heaviness. Patient states her last heart catheter with approximately 2 years ago which involves stent placement at that time. I agree with patient's physical exam findings as documented. Patient was placed in a room on cardiac exercise physiologist continuous pulse ox IV saline ESTABLISHED and labs were drawn and sent and EKG was obtained due to epigastric discomfort. Today's EKG was concerning for new ST changes and T-wave inversion across the anterior leads. This was compared to prior EKG and these changes appear new. Patient insists she is having abdominal epigastric pain with absolutely no chest pain or pressure and no symptoms similar to prior chest pain episodes that she has had with her cardiovascular disease. Patient was given aspirin as well as pain and nausea medication. Labs were drawn and sent including a troponin. Patient's labs were all unremarkable including a negative troponin. Patient's urinalysis showed large ketones but no infection. Patient was sent for CT of abdomen and pelvis to rule out any intra-abdominal pathology. CT was unremarkable. Concerned that patient has had intractable nausea and vomiting for 5 days and has not been able tolerate aspirin or Plavix or any further medications during that timeframe and is now having new EKG changes. We will admit the patient for further evaluation. Patient has not had any vomiting while in the ED and is hemodynamically stable at this time.
[2016-12-23 17:42] LABS: Bilirubin,Urine Small (Negative); Blood,Urine Negative (Negative); Clarity,Urine Clear (Clear); Color,Urine Yellow (Yellow); Glucose,Urine (UA) Normal (Normal); Ketones,Urine >=160 mg/dL (Negative); Leukocyte Esterase,Urine Small (Negative); Nitrite,Urine Negative (Negative); Protein,Urine 30 mg/dL (Neg-Trace); Specific Gravity,Urine 1.023 (1.010-1.025); Urobilinogen,Urine Normal (Normal)
[2016-12-23 17:54] LABS: Bacteria,Urine Few per hpf (None-Few); Mucus,Urine Moderate (Few); RBC,Urine 0-3 per hpf (0-3); Squamous Epithelial Cell,Urine Moderate per lpf (None-Few)
[2016-12-23] MEDS ORDERED: 0.9 % Sodium Chloride 1,000 ML IVC ONE (18:27)
--- NOTE | 2016-12-23 19:01 | Internal Med History&Physical ---
Date of Encounter: 12/23/16 Time of Encounter: 18:59 Assessment and Plan (1) Viral gastritis Current visit: Yes Status: Acute Symptoms and exam are most consistent with viral gastroenteritis. Her abdominal pain is similar to prior biliary colic though she had a cholecystectomy. Other differential could include cholangitis, but she is afebrile without leukocytosis or mental status changes. CT abd/pelvis shows intrahepatic biliary dilation, likely due to prior cholecystectomy. - Advance diet as tolerated - IVF gentle overnight - Zofran/morphine prn - Stool studies If symptoms/abdominal exam changes, consider RUQ US (2) Nausea and vomiting Current visit: Yes Status: Acute as above Qualifiers: Vomiting type: unspecified Vomiting Intractability: intractable Qualified Code(s): R11.2 - Nausea with vomiting, unspecified (3) Epigastric pain Current visit: Yes Status: Acute as above (4) EKG abnormalities Current visit: Yes Status: Acute Known CAD, prior 4-v CABG. 2008, previous PCI. Currently she has no angina symptoms. Her EKG changes are anterior, and I doubt that her nausea or vomiting is angina equivalent as would be suspected in inferior ischemia in a diabetic. Stress test was negative for ischemia in 10/2016. TTE showed preserved LV function in 10/2016. Coronary angiogram in 01/2016 showed stable CAD compared to [facility] in 2014. Severe three vessel CAD. 3/4 patent bypass grafts. SVG to the PDA was occluded. - Cont ASA, Plavix - Serial troponin - Serial EKG - Patient doesn't recall or able to confirm other medicines, family will bring med list for reconciliation (5) Seizure disorder Current visit: No Status: Acute Cont [facility] Internal Medicine - H&P: HPI Chief complaint: Nausea and vomiting Admitted From: Emergency Dept Plans for Post Hospital Care: Home History of present illness: Ms. Ratliff is a 60 year old woman with CAD/CABG who has presented with nausea, vomiting and generalized weakness for 5 days. "Anything I eat or drink" comes up ". Epigastric pain, non-radiating, similar in character to abdominal pain prior to her cholecystectomy. Small amount of clear diarrheal stools. Unable to take nay home meds except Last PCI with stent was more than a year ago. Unable to take ASA or Plavix over the last 5 days. Denies any angina, chest pain, pressure or dyspnea. She was found to have new EKG changes in ED, thus being admitted for further management. Past Med Surg Social Fam HX - Past Medical History Medical history: arthritis, asthma, CHF, COPD, coronary artery disease, hyperlipidemia, hypertension, myocardial infarction, osteoporosis, seizures, other Psychiatric history: anxiety, depression, PTSD - Past Surgical History Surgical History: angioplasty/stent, cholecystectomy, coronary bypass (CABG), hysterectomy, orthopedic, other, LEOPOLDO/BSO, other - Social History Smoking Status: Former smoker Smokeless Tobacco Status: No Alcohol use: rarely Drug use: none - Family History Brother Living Status: Hx Family Cardiac Disorders: Yes (CAD) Daughter Living Status: Still Living Father Adopted: No Living Status: Hx Family Cardiac Disorders: Yes Hx Family Respiratory Disorders: No Hx Family Cancer: No Hx Family GI Disorders: No Hx Family Endocrine Disorder: No Hx Family Neuromuscular Disorders: No Hx Family Neurologic Disorders: No Hx Family HEENT Disorders: No Hx Family Autoimmune Disorders: No Sister Living Status: Hx Family Cardiac Disorders: Yes (CAD) Hx Family Respiratory Disorders: Yes (copd (sister, smoker)) Mother Living Status: Hx Family Cardiac Disorders: Yes Son Adopted: No Living Status: Still Living Hx Family Cardiac Disorders: Yes Hx Family Respiratory Disorders: Yes Hx Family Cancer: Yes Hx Family GI Disorders: No Hx Family Endocrine Disorder: Yes Hx Family Neuromuscular Disorders: No Hx Family Neurologic Disorders: No Hx Family HEENT Disorders: No Hx Family Autoimmune Disorders: No - Additional Family History Additional family history: Positive for cancer and heart disease. GF had stomach cancer Internal Medicine - H&P: Meds LevETIRAcetam [Keppra] 500 mg PO BID #0 12/06/14 [History] Nitroglycerin 0.4 mg SL Q5M PRN 12/31/14 [History] Furosemide [Lasix] 20 mg PO DAILY PRN 05/05/15 [History] Clopidogrel [Plavix] 75 mg PO QAM 12/08/15 [History] Esomeprazole Magnesium [Nexium] 40 mg PO QAM 12/08/15 [History] Ezetimibe [Zetia] 10 mg PO QAM 12/08/15 [History] Gabapentin [Neurontin] 800 mg PO TID 12/08/15 [History] Ranolazine [Ranexa] 1,000 mg PO BID 12/08/15 [History] Denosumab [Prolia (For Outpatient Infusion)] 60 mg SQ [id number] 12/27/15 [History ] Oxygen 4 l IH CONT 12/27/15 [History] Ubidecarenone [Co Q10] 100 mg PO BID 12/27/15 [History] Aspirin 81 mg PO QAM 02/01/16 [History] Gemfibrozil [Lopid] 600 mg PO BIDAC #60 tablet 02/02/16 [Rx] Albuterol Neb [Proventil Neb] 2.5 mg IH TID 06/30/16 [History] Citalopram [CeleXA] 20 mg PO DAILY 06/30/16 [History] Diclofenac Sodium 2 - 3 gm TP 3-4XD PRN 06/30/16 [History] Ergocalciferol (VITAMIN D2) [Vitamin D2] 50,000 unit PO QWEEK 06/30/16 [History] Levalbuterol Tartrate [Xopenex Hfa] 1 puff IH Q4H PRN 06/30/16 [History] Metoprolol XL (24 HR) Succ [Toprol Xl] 12.5 mg PO DAILY 06/30/16 [History] Mycophenolate Mofetil [Cellcept] 1,000 mg PO BID 06/30/16 [History] Tizanidine HCl [Zanaflex] 2 mg PO BID PRN 06/30/16 [History] amLODIPine [Norvasc] 5 mg PO DAILY 06/30/16 [History] LORazepam [Ativan] 0.25 mg PO HS PRN #10 tablet 07/01/16 [Rx] FLUoxetine HCl [Prozac] 20 mg PO DAILY 11/20/16 [History] Lansoprazole [Prevacid] 30 mg PO BID 11/20/16 [History] SUMAtriptan succinate [Imitrex] 50 mg PO Q2H PRN MDD 100MG 11/20/16 [History] Tramadol HCl [Ultram] 100 mg PO Q6H PRN 11/20/16 [History] Isosorbide MONOnitrate (24 HR) [Imdur] 120 mg PO BID #60 tab.er.24h 11/22/16 [Rx ] Miscellaneous Medical Supply [Attachment Set] 1 each MC DAILY #1 miscell [Rx] Ranolazine [Ranexa] 1,000 mg PO BID #60 tab 11/22/16 [Rx] levETIRAcetam [Keppra] 500 mg PO Q12HR tab 11/22/16 [Rx] 3 Allergy/AdvReac Type Severity Reaction Status Date / Time Hydroxychloroquine Allergy Severe Swelling Verified 12/23/16 15:33 of Lip/Tongue/Throat epinephrine Allergy Seizure Verified 12/23/16 15:33 [From Epi E-Z Pen] iron AdvReac Abdominal Verified 12/23/16 15:33 Pain All Systems PM: A 10-system review of systems was performed and is negative for pertinent findings except as documented above in the HPI. - Constitutional Constitutional: as per HPI, chills, fatigue, weakness, no fever(s) - EENT Eyes: no change in vision, no discharge Ears: no ear discharge Nose, mouth and throat: no dry mouth, no nasal congestion - Cardiovascular Cardiovascular ROS IM: no chest pain, no diaphoresis, no dyspnea, no dyspnea on exertion, no edema, no lightheadedness - Respiratory Respiratory: no cough, no wheezing - Gastrointestinal Gastrointestinal: abdominal pain (epigastric similar to biliary colic), loose stools, nausea, vomiting, no coffee ground emesis, no hematemesis - Genitourinary Genitourinary: no urinary frequency, no urinary urgency - Neurological Neurological ROS: headache(s) (as if a noise in head for a long time) - Hematologic/Lymphatic Hematologic/Lymphatic: no easy bleeding - Constitutional Vitals: Temp Pulse Resp BP Pulse Ox 97.8 F 79 16 132/75 97 12/23/16 15:29 12/23/16 18:20 12/23/16 18:20 12/23/16 18:20 12/23/16 18:20 General appearance: Present: A&O X 3, no acute distress - Head Head exam: Present: atraumatic, normal inspection - Eye Eye exam: Present: EOMI, normal appearance, PERRL. Absent: conjunctival injection - ENT ENT exam: Present: mucous membranes dry - Neck Neck exam general surgery: Present: normal inspection. Absent: tenderness, nuchal rigidity - Respiratory Respiratory exam: Present: CTAB. Absent: accessory muscle use, rhonchi, wheezes - Cardiovascular Cardiovascular exam: Present: RRR, +S1, +S2. Absent: systolic murmur - GI/Abdominal GI/Abdominal exam: Present: normal bowel sounds (4 quadrants), tenderness (mild epigastric and RUQ), no peritoneal signs. Absent: guarding, rebound, rigid - Extremities Exam Extremities exam: Present: normal inspection. Absent: calf tenderness, pedal edema - Neurological Exam Neurological exam: Present: alert, oriented X3, no focal deficits. Absent: facial droop - Psychiatric Psychiatric exam: Present: normal affect, normal mood - Skin Skin exam: Present: normal color. Absent: rash Internal Med - H&P Results - Labs CBC & Chem 7: 12/23/16 16:29 12/23/16 16:29 - EKG Data -: EKG Interpreted by Myself EKG shows normal: sinus rhythm (with new TWI in anterior leads, no STEMI) - EKG Data Prior EKG available for review: yes When compared to previous EKG: there are significant changes - Impressions CT abd/pelvis: Mild intrahepatic biliary dilation, otherwise normal exam
[2016-12-23] MEDS ORDERED: tiZANidine 4 MG TABLET PO PRN (20:51)
[2016-12-23] MEDS ORDERED: SUMAtriptan succinate 50 MG TABLET PO PRN (20:51)
[2016-12-23] MEDS ORDERED: *HR* LORazepam 2 MG/ML VIAL IVP PRN (20:59)
[2016-12-23] MEDS ORDERED: Naloxone 0.4 MG/ML INJ IVP PRN (21:00)
[2016-12-23] MEDS ORDERED: Ondansetron 4 MG/2 ML VIAL IVP PRN (21:00)
[2016-12-23] MEDS ORDERED: Acetaminophen 325 MG TABLET PO PRN (21:00)
[2016-12-23] MEDS ORDERED: 0.9 % Sodium Chloride 1,000 ML IVC SCH (21:00)
[2016-12-23] MEDS: *HR* Morphine 2 MG/ML SYRINGE IVP PRN (22:07)
[2016-12-23] MEDS: Gabapentin 400 MG CAPSULE PO SCH (22:10)
[2016-12-23] MEDS: Ranolazine 500 MG TAB.ER.12H PO SCH (22:22)
[2016-12-23] MEDS: Isosorbide MONOnitrate (24 HR) 60 MG TAB.ER.24H PO SCH (22:22)
[2016-12-24] MEDS: Albuterol 2.5 MG/3 ML NEBULIZER IH SCH ×3 (02:28→15:20)
[2016-12-24] MEDS: *HR* Morphine 2 MG/ML SYRINGE IVP PRN ×2 (03:32→12:28)
[2016-12-24 05:42] LABS: Basophils % 0.2 %; Eosinophils # 0.1 K/mcL (0.0-0.6); Eosinophils % 1.1 %; Hematocrit 34.2 % (35.3-44.9); Hemoglobin 10.7 g/dL (11.5-15.4); Immature Granulocytes % 0.7 % (0-4); Lymphocytes # 1.1 K/mcL (0.6-4.6); Lymphocytes % 26.2 %; Mean Corpuscular HGB Conc 31.3 g/dL (31.6-35.5); Mean Corpuscular Hemoglobin 27.6 pg (28.0-33.3); Mean Corpuscular Volume 88.1 fL (83.0-100.0); Mean Platelet Volume 9.2 fL (9.4-12.4); Monocytes # 0.5 K/mcL (0.0-1.3); Neutrophils # 2.6 K/mcL (1.6-8.9); Platelet Count 274 K/mcL (140-400); Red Blood Count 3.88 M/mcL (3.82-4.97); Red Cell Distribution Width 14.4 % (11.5-14.5); Segmented Neutrophils % 59.8 %
[2016-12-24 05:55] LABS: Alanine Aminotransferase 22 Units/L (0-55); Albumin/Globulin Ratio 1.1 (1.1-2.2); Alkaline Phosphatase 84 Units/L (38-126); Aspartate Amino Transferase 28 Units/L (5-34); BUN/Creatinine Ratio 19 (6-26); Bilirubin,Total 0.3 mg/dL (0.2-1.2); Blood Urea Nitrogen 13 mg/dL (7-20); Calcium 7.9 mg/dL (8.6-10.8); Carbon Dioxide 23 mEq/L (19-29); Chloride 113 mEq/L (98-109); Globulin 2.8 g/dL (2.4-3.5); Glucose 81 mg/dL (70-99); Osmolality,Calculated 295 (280-300); Potassium 3.4 mEq/L (3.5-4.5); Sodium 143 mEq/L (136-145); eGFR For African Americans > 60 (> 60); eGFR For Non-African Americans > 60 (> 60)
[2016-12-24 05:56] LABS: Total Protein 5.8 g/dL (6.0-8.3)
[2016-12-24] MEDS: Pantoprazole 40 MG VIAL IVP SCH (06:20)
[2016-12-24] MEDS: Metoprolol XL (24 HR) Succ 25 MG TAB.ER.24H PO SCH (09:22)
[2016-12-24] MEDS: Aspirin 81 MG TAB.CHEW PO SCH (09:22)
[2016-12-24] MEDS: Ranolazine 500 MG TAB.ER.12H PO SCH ×2 (09:23→19:42)
[2016-12-24] MEDS: Gabapentin 400 MG CAPSULE PO SCH ×3 (09:23→19:42)
[2016-12-24] MEDS: Isosorbide MONOnitrate (24 HR) 60 MG TAB.ER.24H PO SCH (09:23)
--- NOTE | 2016-12-24 11:05 | Cardiology Consult Note ---
Date of Encounter: 12/24/16 Time of Encounter: 10:30 Assessment and Plan (1) Nausea and vomiting Current Visit: Yes Status: Acute Per cardiology: -Admitted with nausea and vomiting. -Mangement per primary service. Qualifiers: Vomiting type: unspecified Vomiting Intractability: intractable Qualified Code(s): R11.2 - Nausea with vomiting, unspecified (2) EKG abnormalities Current Visit: Yes Status: Acute Per cardiology: -ECG with SR, HR 74, subtle T wave changes noted in leads V4 and V5 from previous ECG 11/21/16. -Denies chest pain. -Troponins negative x3. -Recent negative cardiac work up. -Will check limited echocardiogram. (3) CAD (coronary artery disease) Current Visit: Yes Status: Chronic Per cardiology: -KNown CAD with CABG 2008 x3. -C 01/2016 with 90% stenosis mid LAD, 99% mid circumflex, 50% proximal RCA, mid RCA with patent stents from previous procedure, 80% right PDA small in size , SVG to PDA occluded, SVG to OM1 patent, MCDONALD to LAD patent. -Nuclear stress 10/2016 negative for ischemia or infarct. -Echo 08/2016 with LVEF 60-65%, mild diastolic dysufnction, mild-moderate AR, all lechuga with normal motion. -Denies chest pain. -On asa, beta sofi, plavix, ranexa, and imdur. -Intolerant to statins. -Troponins negative x3. -ECG with slight T wave changes, reviewed with . -Will check limited echocardiogram. -Will continue to follow. Qualifiers: Coronary Disease-Associated Artery/Lesion type: unspecified vessel or lesion type [place] vs. transplanted heart: [place]q heart Associated angina: without angina Qualified Code(s): I25.10 - Atherosclerotic heart disease of [place] coronary artery without angina pectoris Discussion w patient/family: The assessment and plan as outlined above was discussed with the patient who expressed understanding and agreement. All questions were answered. Thank you for involving us in the care of your patient. Please call with any questions. Discussed and reviewed with . History of Present Illness Consult date: 12/24/16 Requesting physician: Raudel Coyle Consult reason: CAD, ECG changes Chief complaint: nausea and vomiting History of present illness: Ms. Ratliff is a 60 year old female with a relevant past medical history of CAD s/ p CABG and previous stenting, DM, HTN, hyperlipidemia, severe pulmonary hypertension, diastolic dysfunction, [place], [place]. Patient presented to [facility] with complaints of nausea and vomiting. Cardiology has been consulted for ECG changes. Patient denies chest pain or shortness of breath. Patient admits to fatigue, however states fatigue is about baseline. Past Med Surg Social Fam HX - Past Medical History Attestation: Yes The following information was validated with the patient. Source: patient, old records reviewed Medical history: arthritis, asthma, CHF, COPD, coronary artery disease, hyperlipidemia, hypertension, myocardial infarction, osteoporosis, seizures, other Psychiatric history: anxiety, depression, PTSD - Past Surgical History Surgical History: angioplasty/stent, cholecystectomy, coronary bypass (CABG), hysterectomy, orthopedic, other, LEOPOLDO/BSO, other - Social History Smoking Status: Former smoker Smokeless Tobacco Status: No Alcohol use: rarely Drug use: none - Family History Brother Living Status: Hx Family Cardiac Disorders: Yes (CAD) Daughter Living Status: Still Living Father Adopted: No Living Status: Hx Family Cardiac Disorders: Yes Hx Family Respiratory Disorders: No Hx Family Cancer: No Hx Family GI Disorders: No Hx Family Endocrine Disorder: No Hx Family Neuromuscular Disorders: No Hx Family Neurologic Disorders: No Hx Family HEENT Disorders: No Hx Family Autoimmune Disorders: No Sister Living Status: Hx Family Cardiac Disorders: Yes (CAD) Hx Family Respiratory Disorders: Yes (copd (sister, smoker)) Mother Living Status: Hx Family Cardiac Disorders: Yes Son Adopted: No Twin of Family Member: Yes, Identical Living Status: Hx Family Cardiac Disorders: Yes (father massive heart attack) Hx Family Respiratory Disorders: No Hx Family Cancer: Yes Hx Family GI Disorders: No Hx Family Genitourinary Disorders: No Hx Family Endocrine Disorder: No Hx Family Musculoskeletal Disorders: No Hx Family Neuromuscular Disorders: No Hx Family Neurologic Disorders: No Hx Family HEENT Disorders: Yes Hx Family Autoimmune Disorders: No Hx Family Reproductive Disorders: No Hx Family Psychosocial Disorders: No Hx Family Medical Disorders: No Medications and Allergies LevETIRAcetam [Keppra] 500 mg PO BID #0 12/06/14 [History] Nitroglycerin 0.4 mg SL Q5M PRN 12/31/14 [History] Furosemide [Lasix] 20 mg PO DAILY PRN 05/05/15 [History] Clopidogrel [Plavix] 75 mg PO QAM 12/08/15 [History] Esomeprazole Magnesium [Nexium] 40 mg PO QAM 12/08/15 [History] Ezetimibe [Zetia] 10 mg PO QAM 12/08/15 [History] Gabapentin [Neurontin] 800 mg PO TID 12/08/15 [History] Ranolazine [Ranexa] 1,000 mg PO BID 12/08/15 [History] Denosumab [Prolia (For Outpatient Infusion)] 60 mg SQ [id number] 12/27/15 [History ] Oxygen 4 l IH CONT 12/27/15 [History] Ubidecarenone [Co Q10] 100 mg PO BID 12/27/15 [History] Aspirin 81 mg PO QAM 02/01/16 [History] Gemfibrozil [Lopid] 600 mg PO BIDAC #60 tablet 02/02/16 [Rx] Albuterol Neb [Proventil Neb] 2.5 mg IH TID 06/30/16 [History] Citalopram [CeleXA] 20 mg PO DAILY 06/30/16 [History] Diclofenac Sodium 2 - 3 gm TP 3-4XD PRN 06/30/16 [History] Ergocalciferol (VITAMIN D2) [Vitamin D2] 50,000 unit PO QWEEK 06/30/16 [History] Levalbuterol Tartrate [Xopenex Hfa] 1 puff IH Q4H PRN 06/30/16 [History] Metoprolol XL (24 HR) Succ [Toprol Xl] 12.5 mg PO DAILY 06/30/16 [History] Mycophenolate Mofetil [Cellcept] 1,000 mg PO BID 06/30/16 [History] Tizanidine HCl [Zanaflex] 2 mg PO BID PRN 06/30/16 [History] amLODIPine [Norvasc] 5 mg PO DAILY 06/30/16 [History] LORazepam [Ativan] 0.25 mg PO HS PRN #10 tablet 07/01/16 [Rx] FLUoxetine HCl [Prozac] 20 mg PO DAILY 11/20/16 [History] Lansoprazole [Prevacid] 30 mg PO BID 11/20/16 [History] SUMAtriptan succinate [Imitrex] 50 mg PO Q2H PRN MDD 100MG 11/20/16 [History] Tramadol HCl [Ultram] 100 mg PO Q6H PRN 11/20/16 [History] Isosorbide MONOnitrate (24 HR) [Imdur] 120 mg PO BID #60 tab.er.24h 11/22/16 [Rx ] Miscellaneous Medical Supply [Attachment Set] 1 each MC DAILY #1 miscell [Rx] Ranolazine [Ranexa] 1,000 mg PO BID #60 tab 11/22/16 [Rx] levETIRAcetam [Keppra] 500 mg PO Q12HR tab 11/22/16 [Rx] 3 Allergy/AdvReac Type Severity Reaction Status Date / Time Hydroxychloroquine Allergy Severe Swelling Verified 12/23/16 15:33 of Lip/Tongue/Throat epinephrine Allergy Seizure Verified 12/23/16 15:33 [From Epi E-Z Pen] iron AdvReac Abdominal Verified 12/23/16 15:33 Pain All Systems Review: A 10-system review of systems was performed and is negative for pertinent findings except as documented above in the HPI. - Constitutional Constitutional: fatigue - Cardiovascular Cardiovascular: as per HPI - Gastrointestinal Gastrointestinal: nausea Physical Examination Vital Signs, Last 4 Hours Resp Pulse Ox 12/24/16 07:59 18 98 Vital Signs Temperature 97.8 F 12/23/16 15:29 Pulse Rate 79 12/23/16 15:29 Respiratory Rate 16 12/23/16 15:29 Blood Pressure 130/75 12/23/16 15:29 O2 Sat by Pulse Oximetry 97 12/23/16 15:29 Temperature 98 F 12/24/16 07:00 Pulse Rate 67 12/24/16 07:00 Respiratory Rate 18 12/24/16 07:59 Blood Pressure 127/83 12/24/16 07:00 O2 Sat by Pulse Oximetry 98 12/24/16 07:59 Oxygen Delivery Oxygen Delivery Room Air General: Conversant, No Apparent Distress HEENT: Atraumatic, Normocephaly, Mucus Membranes Moist Neck: No JVD, Normal carotid pulses Cardiac: Reg Rate and Rhythm, Normal S1 and S2, No Murmur Lungs: Normal Breath Sounds, No Wheeze, Rales, Rhonchi Neuro: Alert and responsive, No focal deficits noted Abdomen: Soft, Non-Tender Skin: No rashes noted on visualized skin Musculoskeletal: No Chest Wall Tenderness Extremities: No Clubbing, No Cyanosis, No Edema, Normal Pulses Results 12/24/16 05:21 12/24/16 05:21 Lab Results Impressions Chest X-Ray 12/23/16 16:01 IMPRESSION: Post CABG changes with no acute abnormality. D/ / 12/23/2016 16:54:53 Wagner Macias MD / eardenise Interpreting Provider: Wagner Macias MD Abdomen/Pelvis CT 12/23/16 17:22 IMPRESSION: Mild intrahepatic biliary dilatation. Common bile duct is unremarkable. Findings may be related to previous cholecystectomy. Diverticulosis without evidence of acute diverticulitis. D/ / Heide Brooks MD / Heide Brooks MD Interpreting Provider: Heide Brooks MD Active Medications Acetaminophen (Tylenol) 650 mg PO Q6HR PRN PRN Reason: Mild Pain (1-3) Stop: 06/24/17 21:01 Albuterol Sulfate (Proventil Neb) 2.5 mg IH TIDR [facility] PRN Reason: Protocol Stop: 06/25/17 02:01 Last Admin: 12/24/16 07:57 Dose: 2.5 mg Aspirin (Aspirin) 81 mg PO QAM [facility] Stop: 06/25/17 09:01 Last Admin: 12/24/16 09:22 Dose: 81 mg Clopidogrel Bisulfate (Plavix) 75 mg PO QAM [facility] Stop: 06/25/17 09:01 Last Admin: 12/24/16 09:23 Dose: 75 mg Gabapentin (Neurontin) 800 mg PO TID [facility] Stop: 06/24/17 21:01 Last Admin: 12/24/16 09:23 Dose: 800 mg Levetiracetam 500 mg/ Sodium (Chloride) 105 mls @ 400 mls/hr IVPB BID [facility] Stop: 06/24/17 21:01 Last Admin: 12/24/16 09:23 Dose: 400 mls/hr Isosorbide Mononitrate (Imdur) 60 mg PO DAILY [facility] Stop: 06/24/17 21:31 Last Admin: 12/24/16 09:23 Dose: 60 mg Lorazepam (Ativan) 0.5 mg IVP Q6HR PRN PRN Reason: Anxiety Stop: 06/24/17 21:00 Metoprolol Succinate (Toprol Xl) 12.5 mg PO DAILY [facility] Stop: 06/25/17 09:01 Last Admin: 12/24/16 09:22 Dose: 12.5 mg Morphine Sulfate (Morphine Sulfate) 2 mg IVP Q4HR PRN PRN Reason: Severe Pain (7-10) Stop: 06/24/17 21:01 Last Admin: 12/24/16 03:32 Dose: 2 mg Naloxone HCl (Narcan) 0.4 mg IVP Q2MIN PRN PRN Reason: Opioid Reversal Stop: 06/24/17 21:01 Ondansetron HCl (Zofran) 4 mg IVP Q8HR PRN PRN Reason: Nausea And Vomiting Stop: 06/24/17 21:01 Pantoprazole Sodium (Protonix) 40 mg IVP 0630 [facility] Stop: 06/25/17 06:31 Last Admin: 12/24/16 06:20 Dose: 40 mg Ranolazine (Ranexa) 1,000 mg PO BID [facility] Stop: 06/24/17 21:31 Last Admin: 12/24/16 09:23 Dose: 1,000 mg Sumatriptan Succinate (Imitrex) 50 mg PO Q2H PRN PRN Reason: Migraine Headache Stop: 06/24/17 20:52 Last Admin: 12/24/16 06:23 Dose: 50 mg Tizanidine HCl (Zanaflex) 2 mg PO BID PRN PRN Reason: Muscle Spasm Laboratory Tests 12/23/16 12/23/16 12/24/16 16:29 21:55 05:21 Hgb 10.7 L D Creatinine Troponin I 0.00 0.01 12/24/16 12/24/16 05:21 05:21 Hgb Creatinine 0.67 Troponin I 0.01 - Imaging and Cardiology Chest Xray: report reviewed Stress Test: report reviewed Echo: report reviewed Cardiac cath: report reviewed - EKG Interpretation EKG results cardiology: personally reviewed (ECG with SR, HR 74. subtle T wave changes noted in leads V4 and V5.), other (Telemetry reviewed with average HR 69 , sinus rhythm.) Consult Discharge Plan - Plan Referrals: Kenneth Reynaga MD [Primary Care Provider] -
--- NOTE | 2016-12-24 11:43 | Internal Med Progress Note ---
Date of Encounter: 12/24/16 Time of Encounter: 08:45 - Assessment and plan (1) Viral gastritis Current Visit: Yes Status: Acute Assessment and plan: Clinically getting better. Continue clears and advance diet as tolerated. Continue antiemetics as needed. No new episodes of nausea or vomiting reported. (2) EKG abnormalities Current Visit: Yes Status: Acute Assessment and plan: Cardiology consulted. No chest pain. Troponins are negative. (3) Epigastric pain Current Visit: Yes Status: Acute Assessment and plan: Improving. Lipase negative. Most likely from gastroenteritis. No findings to suggest any biliary disease. (4) Nausea and vomiting Current Visit: Yes Status: Resolved Assessment and plan: Improved now. Possibly from viral gastroenteritis. Qualifiers: Vomiting type: unspecified Vomiting Intractability: intractable Qualified Code(s): R11.2 - Nausea with vomiting, unspecified (5) Seizure disorder Current Visit: No Status: Acute - Subjective Interval history: Patient is awake and alert. Feels slightly better compared to yesterday. Continues to have some epigastric pain. Nonradiating. No chest pain. No shortness of breath or palpitations. Nausea and vomiting are improving. - Constitutional Vitals: Temp Pulse Resp BP Pulse Ox 98 F 67 18 127/83 98 12/24/16 07:00 12/24/16 07:00 12/24/16 07:59 12/24/16 07:00 12/24/16 07:59 General appearance: Present: A&O X 3, no acute distress, answers questions appropriately - Neck Neck exam general surgery: Present: supple, trachea midline. Absent: lymphadenopathy - Respiratory Respiratory exam: Present: CTAB. Absent: accessory muscle use, rales, rhonchi, wheezes - Cardiovascular Cardiovascular exam: Present: RRR, +S1, +S2. Absent: diastolic murmur, gallop, rubs, systolic murmur - GI/Abdominal GI/Abdominal exam: Present: normal bowel sounds, soft, tenderness (Epigastric), no peritoneal signs. Absent: distended - Extremities Exam Extremities exam: Present: warm, radial pulses palpable and symmetrical. Absent : calf tenderness, cyanotic, pedal edema - Neurological Exam Neurological exam: Present: alert, oriented X3, no focal deficits. Absent: facial droop, speech deficit - Skin Skin exam: Present: dry, intact Internal Medicine: Result - Labs CBC & Chem 7: 08/27/17 05:21 12/24/16 05:21 Labs: Short CBC 12/24/16 Range/Units 05:21 WBC 4.4 (4.3-11.1) K/mcL Hgb 10.7 L D (11.5-15.4) g/dL Hct 34.2 L (35.3-44.9) % Plt Count 274 (140-400) K/mcL Neutrophils # 2.6 (1.6-8.9) K/mcL BMP 12/24/16 05:21 Sodium 143 Potassium 3.4 L Chloride 113 H Carbon Dioxide 23 BUN 13 Creatinine 0.67 Glucose 81 Calcium 7.9 L Cardiac Enzymes 12/23/16 12/24/16 Range/Units 21:55 05:21 Troponin I 0.01 0.01 (0-0.03) ng/mL Liver Function 12/24/16 Range/Units 05:21 Total Bilirubin 0.3 (0.2-1.2) mg/dL AST 28 (5-34) Units/L ALT 22 (0-55) Units/L Alkaline Phosphatase 84 (38-126) Units/L Albumin 3.0 L D (3.5-5.0) g/dL Consult Discharge Plan - Plan Referrals: Kenneth Reynaga MD [Primary Care Provider] -
[2016-12-25] MEDS: Albuterol 2.5 MG/3 ML NEBULIZER IH SCH ×3 (04:45→16:58)
[2016-12-25] MEDS: Pantoprazole 40 MG VIAL IVP SCH (06:16)
[2016-12-25] MEDS: *HR* Morphine 2 MG/ML SYRINGE IVP PRN ×2 (07:55→22:58)
--- NOTE | 2016-12-25 09:15 | Gastroenterology Consult Note ---
<Ankita Kenyon - Last Filed: 12/25/16 14:37> Date of Encounter: 12/25/16 Time of Encounter: 12:20 - Assessment and plan (1) Epigastric pain Current Visit: Yes Status: Acute Assessment and plan: Five day hx of N/V, small amount of diarrhea. Epigastric and right upper quadrant pain with palpation. EGD to r/o esophagitis, gastritis, duodenitis, PUD , MW tear, AVMs, polyp or tumor - diagnostic only as patient is on PLAVIX. Can repeat EGD as OTPT off Plavix for esophageal dilation. (2) History of melena Current Visit: Yes Status: Resolved Assessment and plan: about one week prior to admit, 3 days of melena reported. Hgb dropped, could be dilutional based on presentation, continue to monitor same. (3) Dysphagia Current Visit: Yes Status: Acute Qualifiers: Dysphagia type: unspecified Qualified Code(s): R13.10 - Dysphagia, unspecified - Time Spent With Patient Total time spent is greater than 50% in coordination of care (as documented) at patient's floor/unit and/or counseling patient: less than 15 minutes GI History of Present Illness - Data of Consult Patient: known to practice within the last 3 years Consult date: 12/25/16 Requesting Physician: Blas Lane MD - Consult Narrative Reason for consult: melena, abd pain, N/V History of present illness: Ms. Ratliff is a 61 year old female with PMH of CABG, LHC with last stent 1-2 years ago, seizure d/o, CHF, COPD presenting with N/V for the past 5 days and possibly diarrhea. The patient states she has not been able keep any of her medications down as well she is on Plavix, aspirin, nitro, and anti-epileptic medications. Patient she has a history of a cholecystectomy and appendectomy, imaging shows mild intrahepatic biliary ductal dilation likely related to prior cholecystectomy. Small amount of clear diarrheal stools. She was found to have new EKG changes in ED, thus being admitted for further management. Patient was seen by cardiology and cleared for EKG changes. Patient reports about 3 days of black, tarry stools prior to admission. She has had epigastric and RUQ abdominal pain, N/V 1 week ago described as 'green and slimy'. She has a hx of dysphagia, having her last EGD in [address] Nieves s/p dilation, she states she is finding it difficult to swallow solids and liquids again. Vomiting has ceased, but nausea and abdominal pain persist. Colonoscopy: 2009 Sinning - internal hemorrhoids EGD: 2013 Lizbeth BANEGAS grade A esophagitis, mild GAVE, gastritis, s/p dil Past Med Surg Social Fam HX - Past Medical History Medical history: arthritis, asthma, CHF, COPD, coronary artery disease, hyperlipidemia, hypertension, myocardial infarction, osteoporosis, seizures, other Psychiatric history: anxiety, depression, PTSD - Past Surgical History Surgical History: angioplasty/stent, cholecystectomy, coronary bypass (CABG), hysterectomy, orthopedic, other, LEOPOLDO/BSO, other - Social History Smoking Status: Former smoker Smokeless Tobacco Status: No Alcohol use: rarely Drug use: none - Family History Brother Living Status: Hx Family Cardiac Disorders: Yes (CAD) Daughter Living Status: Still Living Father Adopted: No Living Status: Hx Family Cardiac Disorders: Yes Hx Family Respiratory Disorders: No Hx Family Cancer: No Hx Family GI Disorders: No Hx Family Endocrine Disorder: No Hx Family Neuromuscular Disorders: No Hx Family Neurologic Disorders: No Hx Family HEENT Disorders: No Hx Family Autoimmune Disorders: No Sister Living Status: Hx Family Cardiac Disorders: Yes (CAD) Hx Family Respiratory Disorders: Yes (copd (sister, smoker)) Mother Living Status: Hx Family Cardiac Disorders: Yes Son Adopted: No Twin of Family Member: Yes, Identical Living Status: Hx Family Cardiac Disorders: Yes (father massive heart attack) Hx Family Respiratory Disorders: No Hx Family Cancer: Yes Hx Family GI Disorders: No Hx Family Genitourinary Disorders: No Hx Family Endocrine Disorder: No Hx Family Musculoskeletal Disorders: No Hx Family Neuromuscular Disorders: No Hx Family Neurologic Disorders: No Hx Family HEENT Disorders: Yes Hx Family Autoimmune Disorders: No Hx Family Reproductive Disorders: No Hx Family Psychosocial Disorders: No Hx Family Medical Disorders: No - Gastrointestinal NSAID use: diclofenac Anticoagulation Use: Plavix Number of BM Per Day: daily Gastrointestinal: Present: abdominal pain, melena, nausea, vomiting - Constitutional Constitutional: as per HPI - EENT Eyes: as per HPI Ears: Present: as per HPI Nose, mouth and throat: Present: dysphagia - Cardiovascular Cardiovascular ROS: Present: as per HPI - Respiratory Respiratory IM: Present: dyspnea - Neurological ROS Neurological GI: Present: as per HPI - Hematologic/Lymphatic Hematologic/Lymphatic pediatric: Present: as per HPI - Musculoskeletal Musculoskeletal ROS GI: Present: as per HPI - Integumentary Integumentary GI: Present: as per HPI - Psychiatric ROS Psychiatric GI: Present: as per HPI - Endocrine Endocrine IM: Present: as per HPI - Constitutional Vitals: Temp Pulse Resp BP Pulse Ox 98.1 F 61 18 131/72 94 12/25/16 06:32 12/25/16 06:32 12/25/16 06:32 12/25/16 06:32 12/25/16 08:12 General appearance: Present: cooperative, A&O X 3, no acute distress, answers questions appropriately - Head Head exam: Present: atraumatic, normocephalic - Eye Eye exam: Present: normal appearance, sclera anicteric - ENT ENT exam: Present: mucous membranes moist - Neck Neck exam general surgery: Present: normal inspection, trachea midline - Respiratory Respiratory exam: Present: CTAB - Cardiovascular Cardiovascular exam: Present: RRR, +S1, +S2 - GI/Abdominal GI/Abdominal exam: Present: soft, tenderness, no peritoneal signs - Rectal Rectal exam: Present: deferred - Extremities Exam Extremities exam: Present: warm - Neurological Exam Neurological exam: Present: no focal deficits - Psychiatric Psychiatric exam: Present: normal affect, normal mood - Skin Skin exam: Present: dry, intact, normal color, warm Results - Labs CBC & Chem 7: 12/24/16 05:21 12/24/16 05:21 Labs: Last Result Calcium 7.9 mg/dL (8.6-10.8) L 12/24/16 05:21 Troponin I 0.01 ng/mL (0-0.03) 12/24/16 05:21 Entire Visit Hgb 10.7 g/dL (11.5-15.4) L D 12/24/16 05:21 Hct 34.2 % (35.3-44.9) L 12/24/16 05:21 Total Bilirubin 0.3 mg/dL (0.2-1.2) 12/24/16 05:21 AST 28 Units/L (5-34) 12/24/16 05:21 ALT 22 Units/L (0-55) 12/24/16 05:21 Lipase 13 Units/L (8-78) 12/23/16 16:29 Consult Discharge Plan - Plan Referrals: Kenneth Reynaga MD [Primary Care Provider] - <Micha Nieves - Last Filed: 12/25/16 18:00> Date of Encounter: 12/25/16 Time of Encounter: 18:00 - Time Spent With Patient Total time spent is greater than 50% in coordination of care (as documented) at patient's floor/unit and/or counseling patient: GI History of Present Illness - Data of Consult Requesting Physician: Blas Lane MD - Consult Narrative History of present illness: Ms. Ratliff is a 61 year old female - Constitutional Vitals: Temp Pulse Resp BP Pulse Ox 98.4 F 71 18 121/78 95 12/25/16 14:49 12/25/16 14:49 12/25/16 14:49 12/25/16 14:49 12/25/16 14:49 Results - Labs CBC & Chem 7: 12/25/16 15:53 12/24/16 05:21 Labs: Last Result Calcium 7.9 mg/dL (8.6-10.8) L 12/24/16 05:21 Troponin I 0.01 ng/mL (0-0.03) 12/24/16 05:21 Entire Visit Hgb 11.2 g/dL (11.5-15.4) L 12/25/16 15:53 Hct 35.1 % (35.3-44.9) L 12/25/16 15:53 Total Bilirubin 0.3 mg/dL (0.2-1.2) 12/24/16 05:21 AST 28 Units/L (5-34) 12/24/16 05:21 ALT 22 Units/L (0-55) 12/24/16 05:21 Lipase 13 Units/L (8-78) 12/23/16 16:29 - Attending Attestation I examined this patient and my medical decision-making was reviewed with the Resident Physician. I agree with the documented findings, disposition and treatment plan as described except to the extent set forth below. midepigastric abdominal pain per patient she always has some dull achiness there but on occasion the pain get worse and it sounds like a gallbladder attack. Patient gallbladder is already out. Recommendation: EGD and if negative then she will need MECP to rule out CBD stone
--- NOTE | 2016-12-25 09:57 | Cardiology Progress Note ---
Date of Encounter: 12/25/16 Time of Encounter: 08:00 Assessment and Plan (1) Nausea and vomiting Current Visit: Yes Status: Resolved Per cardiology: -Admitted with nausea and vomiting. -Mangement per primary service. Qualifiers: Vomiting type: unspecified Vomiting Intractability: intractable Qualified Code(s): R11.2 - Nausea with vomiting, unspecified (2) EKG abnormalities Current Visit: Yes Status: Acute Per cardiology: -ECG with SR, HR 74, subtle T wave changes noted in leads V4 and V5 from previous ECG 11/21/16. -Denies chest pain. -Troponins negative x3. -Recent negative cardiac work up. -limited echo with LVEF 60-65%, mild concentric left ventricular hypertrophy, all le[place] with normal motion. -Cardiology will sign off and will follow in outpatient setting. Follow up set. (3) CAD (coronary artery disease) Current Visit: Yes Status: Chronic Per cardiology: -[place]own CAD with CABG 2008 x3. -LHC 01/2016 with 90% stenosis mid LAD, 99% mid circumflex, 50% proximal RCA, mid RCA with patent stents from previous procedure, 80% right PDA small in size , SVG to PDA occluded, SVG to OM1 patent, MCDONALD to LAD patent. -Nuclear stress 10/2016 negative for ischemia or infarct. -Echo 08/2016 with LVEF 60-65%, mild diastolic dysufnction, mild-moderate AR, all lechuga with normal motion. -Denies chest pain. -On asa, beta sofi, plavix, ranexa, and imdur. -Intolerant to statins. -Troponins negative x3. -ECG with slight T wave changes, reviewed with . -Limited echo as above. -Cardiology will follow in outpatient setting. Qualifiers: Coronary Disease-Associated Artery/Lesion type: unspecified vessel or lesion type [place] vs. transplanted heart: [place] heart Associated angina: without angina Qualified Code(s): I25.10 - Atherosclerotic heart disease of [place] coronary artery without angina pectoris Discussion w patient/family: The assessment and plan as outlined above was discussed with the patient who expressed understanding and agreement. All questions were answered. Thank you for involving us in the care of your patient. Please call with any questions. Discussed and reviewed with . Subjective Principal diagnosis: abdominal pain Interval history: Patient denies chest pain or shortness of breath. Admits to continuous abdominal pain. Objective Vital Signs, Last 4 Hours Temp Pulse Resp BP Pulse Ox 12/25/16 08:12 94 12/25/16 06:32 98.1 F 61 18 131/72 97 General: Conversant, No Apparent Distress HEENT: Atraumatic, Normocephaly, Mucus Membranes Moist Neck: No JVD, Normal carotid pulses Cardiac: Reg Rate and Rhythm, Normal S1 and S2, No Murmur Lungs: Normal Breath Sounds, No Wheeze, Rales, Rhonchi Neuro: Alert and responsive, No focal deficits noted Abdomen: Soft, Non-Tender Skin: No rashes noted on visualized skin Musculoskeletal: No Chest Wall Tenderness Extremities: No Clubbing, No Cyanosis, No Edema, Normal Pulses Results 12/24/16 05:21 12/24/16 05:21 Active Medications Acetaminophen (Tylenol) 650 mg PO Q6HR PRN PRN Reason: Mild Pain (1-3) Stop: 06/24/17 21:01 Albuterol Sulfate (Proventil Neb) 2.5 mg IH TIDR [facility] PRN Reason: Protocol Stop: 06/25/17 02:01 Last Admin: 12/25/16 04:45 Dose: Not Given Aspirin (Aspirin) 81 mg PO QAM [facility] Stop: 06/25/17 09:01 Last Admin: 12/24/16 09:22 Dose: 81 mg Clopidogrel Bisulfate (Plavix) 75 mg PO QAM [facility] Stop: 06/25/17 09:01 Last Admin: 12/24/16 09:23 Dose: 75 mg Gabapentin (Neurontin) 800 mg PO TID [facility] Stop: 06/24/17 21:01 Last Admin: 12/24/16 19:42 Dose: 800 mg Levetiracetam 500 mg/ Sodium (Chloride) 105 mls @ 400 mls/hr IVPB BID [facility] Stop: 06/24/17 21:01 Last Infusion: 12/25/16 07:13 Dose: Infused Isosorbide Mononitrate (Imdur) 60 mg PO DAILY [facility] Stop: 06/24/17 21:31 Last Admin: 12/24/16 09:23 Dose: 60 mg Lorazepam (Ativan) 0.5 mg IVP Q6HR PRN PRN Reason: Anxiety Stop: 06/24/17 21:00 Metoprolol Succinate (Toprol Xl) 12.5 mg PO DAILY [facility] Stop: 06/25/17 09:01 Last Admin: 12/24/16 09:22 Dose: 12.5 mg Morphine Sulfate (Morphine Sulfate) 2 mg IVP Q4HR PRN PRN Reason: Severe Pain (7-10) Stop: 06/24/17 21:01 Last Admin: 12/25/16 07:55 Dose: 2 mg Naloxone HCl (Narcan) 0.4 mg IVP Q2MIN PRN PRN Reason: Opioid Reversal Stop: 06/24/17 21:01 Ondansetron HCl (Zofran) 4 mg IVP Q8HR PRN PRN Reason: Nausea And Vomiting Stop: 06/24/17 21:01 Last Admin: 12/25/16 07:55 Dose: 4 mg Pantoprazole Sodium (Protonix) 40 mg IVP 0630 [facility] Stop: 06/25/17 06:31 Last Admin: 12/25/16 06:16 Dose: 40 mg Ranolazine (Ranexa) 1,000 mg PO BID [facility] Stop: 06/24/17 21:31 Last Admin: 12/24/16 19:42 Dose: 1,000 mg Sumatriptan Succinate (Imitrex) 50 mg PO Q2H PRN PRN Reason: Migraine Headache Stop: 06/24/17 20:52 Last Admin: 12/24/16 06:23 Dose: 50 mg Tizanidine HCl (Zanaflex) 2 mg PO BID PRN PRN Reason: Muscle Spasm Laboratory Tests 12/23/16 12/24/16 12/24/16 16:29 05:21 05:21 Hgb 12.7 10.7 L D Creatinine 0.67 - Imaging and Cardiology Chest Xray: report reviewed Echo: report reviewed - EKG Interpretation EKG results cardiology: other (Telemetry reviewed with average HR 73, sinus rhythm.) Consult Discharge Plan - Plan Referrals: Kenneth Reynaga MD [Primary Care Provider] -
[2016-12-25] MEDS: Ranolazine 500 MG TAB.ER.12H PO SCH ×2 (11:01→21:51)
[2016-12-25] MEDS: Gabapentin 400 MG CAPSULE PO SCH ×3 (11:02→21:51)
[2016-12-25] MEDS: Metoprolol XL (24 HR) Succ 25 MG TAB.ER.24H PO SCH (11:02)
[2016-12-25] MEDS: Isosorbide MONOnitrate (24 HR) 60 MG TAB.ER.24H PO SCH (11:02)
[2016-12-25] MEDS: Aspirin 81 MG TAB.CHEW PO SCH (11:02)
[2016-12-25] MEDS ORDERED: GI Cocktail 40 ML EACH PO ONE ×2 (12:33→22:07)
--- NOTE | 2016-12-25 15:31 | Internal Med Progress Note ---
Date of Encounter: 12/25/16 Time of Encounter: 08:55 - Assessment and plan (1) Viral gastritis Current Visit: Yes Status: Acute Assessment and plan: Patient continues to have significant epigastric tenderness along with nausea and vomiting. Will consult gastroenterology for further evaluation and possible upper GI endoscopy. Patient could have underlying peptic ulcer disease. Continue IV PPI. Will place nothing by mouth until evaluated by GI. Monitor vital signs. Moderate risk for complications. (2) EKG abnormalities Current Visit: Yes Status: Acute Assessment and plan: Evaluated by cardiology. 2-D echocardiogram done shows no abnormal wall motion. EF is 60-65%. No further ischemic workup recommended at this time. (3) Epigastric pain Current Visit: Yes Status: Acute Assessment and plan: Patient continues to have epigastric pain. We will consult GI. Trial of GI cocktail. (4) Nausea and vomiting Current Visit: Yes Status: Acute Assessment and plan: Patient continues to feel nauseated today. We will treat with antiemetics. Qualifiers: Vomiting type: unspecified Vomiting Intractability: intractable Qualified Code(s): R11.2 - Nausea with vomiting, unspecified (5) Seizure disorder Current Visit: Yes Status: Chronic Assessment and plan: On intravenous Keppra (6) Anemia Current Visit: Yes Status: Acute Assessment and plan: Hemoglobin 10.7. Will check stool for occult blood. Also check iron, folic acid and B12 levels. Monitor blood counts closely. Qualifiers: Anemia type: unspecified type Qualified Code(s): D64.9 - Anemia, unspecified - Subjective Interval history: Patient complains of continued epigastric pain worse compared to yesterday. No new episodes of diarrhea. Continues to feel nauseated. Denies fever or chills. Pain does not radiate anywhere. - Constitutional Vitals: Temp Pulse Resp BP Pulse Ox 98.4 F 71 18 121/78 95 12/25/16 14:49 12/25/16 14:49 12/25/16 14:49 12/25/16 14:49 12/25/16 14:49 General appearance: Present: A&O X 3, no acute distress, answers questions appropriately - Neck Neck exam general surgery: Present: supple, trachea midline. Absent: lymphadenopathy - Respiratory Respiratory exam: Present: CTAB. Absent: accessory muscle use, rales, rhonchi, wheezes - Cardiovascular Cardiovascular exam: Present: RRR, +S1, +S2. Absent: diastolic murmur, gallop, rubs, systolic murmur - GI/Abdominal GI/Abdominal exam: Present: normal bowel sounds, soft, tenderness (Epigastric), no peritoneal signs. Absent: distended - Extremities Exam Extremities exam: Present: warm, radial pulses palpable and symmetrical. Absent : calf tenderness, cyanotic, pedal edema Internal Medicine: Result - Labs CBC & Chem 7: 12/24/16 05:21 12/24/16 05:21 Consult Discharge Plan - Plan Referrals: Ronnell,Kenneth Kim MD [Primary Care Provider] -
[2016-12-25 16:05] LABS: Hematocrit 35.1 % (35.3-44.9); Hemoglobin 11.2 g/dL (11.5-15.4)
--- NOTE | 2016-12-25 17:21 | Electrocardiograph Report ---
[address] [place], [place] [address] Test Date: 2016-12-23 Pat Name: Viri Ratliff Department: 102 Room: [facility] Gender: F [employer]: Mary : 1955 Requested By: Javy Cruz Order Number: [id number] Reading MD: Perla Richmond Measurements Intervals [place] Rate: 74 P: 41 HI: 194 QRS: 26 QRSD: 90 T: 77 QT: 420 QTc: 447 Interpretive Statements SINUS RHYTHM LOW QRS VOLTAGE IN PRECORDIAL LEADS ST DEVIATION AND MODERATE T-WAVE ABNORMALITY, CONSIDER ANTERIOR ISCHEMIA Electronically Signed On 12-25-2016 17:19:57 EDT by Perla Richmond
[2016-12-26] MEDS: Albuterol 2.5 MG/3 ML NEBULIZER IH SCH ×3 (02:51→17:14)
[2016-12-26 05:03] LABS: Basophils % 0.3 %; Eosinophils # 0.1 K/mcL (0.0-0.6); Eosinophils % 1.3 %; Hematocrit 34.6 % (35.3-44.9); Hemoglobin 11.2 g/dL (11.5-15.4); Immature Granulocytes % 0.3 % (0-4); Lymphocytes % 25.6 %; Mean Corpuscular HGB Conc 32.4 g/dL (31.6-35.5); Mean Corpuscular Hemoglobin 27.9 pg (28.0-33.3); Mean Corpuscular Volume 86.1 fL (83.0-100.0); Mean Platelet Volume 9.1 fL (9.4-12.4); Monocytes # 0.5 K/mcL (0.0-1.3); Monocytes % 12.1 %; Neutrophils # 2.4 K/mcL (1.6-8.9); Platelet Count 280 K/mcL (140-400); Red Blood Count 4.02 M/mcL (3.82-4.97); Red Cell Distribution Width 14.3 % (11.5-14.5); Segmented Neutrophils % 60.4 %
[2016-12-26 05:21] LABS: % Iron Saturation 6 % (15-50); BUN/Creatinine Ratio 22 (6-26); Blood Urea Nitrogen 14 mg/dL (7-20); Calcium 8.5 mg/dL (8.6-10.8); Carbon Dioxide 26 mEq/L (19-29); Chloride 111 mEq/L (98-109); Glucose 115 mg/dL (70-99); Iron 23 mcg/dL (50-170); Osmolality,Calculated 297 (280-300); Potassium 3.1 mEq/L (3.5-4.5); Sodium 143 mEq/L (136-145); Transferrin 276 mg/dL (180-382); eGFR For African Americans > 60 (> 60); eGFR For Non-African Americans > 60 (> 60)
[2016-12-26] MEDS: Pantoprazole 40 MG VIAL IVP SCH (05:21)
[2016-12-26 05:42] LABS: Ferritin 10 ng/ml (5-204)
[2016-12-26 05:55] LABS: Folate 5.4 ng/mL (7.0-31.4)
[2016-12-26] MEDS: Aspirin 81 MG TAB.CHEW PO SCH (07:45)
[2016-12-26] MEDS: Gabapentin 400 MG CAPSULE PO SCH ×2 (09:19→14:35)
[2016-12-26] MEDS: Ranolazine 500 MG TAB.ER.12H PO SCH (09:19)
[2016-12-26] MEDS: Isosorbide MONOnitrate (24 HR) 60 MG TAB.ER.24H PO SCH (09:19)
[2016-12-26] MEDS: Metoprolol XL (24 HR) Succ 25 MG TAB.ER.24H PO SCH (09:19)
[2016-12-26 11:39] LABS: Thyroid Stimulating Hormone 3.389 mcIU/mL (0.350-4.840)
[2016-12-26] MEDS ORDERED: 0.9 % Sodium Chloride 500 ML IVC SCH (12:30)
--- NOTE | 2016-12-26 12:34 | Anesthesia Evaluation PreOp ---
Date of Encounter: 12/26/16 Time of Encounter: 12:30 - Past History Planned Operation: EGD Cardiac History: Other (Anemia) Pulmonary History: Denies Any Significant HX SHOE COBBLER History: Seizures Other Medical History: Other (Morbid Obesity) Anesthesia History: No Prior Anesthetic Complications : No Alcohol Use: rarely Drug use: none Medications and Allergies Nitroglycerin 0.4 mg SL Q5M PRN 12/31/14 [History] Furosemide [Lasix] 20 mg PO DAILY PRN 05/05/15 [History] Clopidogrel [Plavix] 75 mg PO QAM 12/08/15 [History] Esomeprazole Magnesium [Nexium] 40 mg PO QAM 12/08/15 [History] Ezetimibe [Zetia] 10 mg PO QAM 12/08/15 [History] Gabapentin [Neurontin] 800 mg PO TID 12/08/15 [History] Denosumab [Prolia (For Outpatient Infusion)] 60 mg SQ [id number] 12/27/15 [History ] Oxygen 4 l IH CONT 12/27/15 [History] Ubidecarenone [Co Q10] 100 mg PO BID 12/27/15 [History] Aspirin 81 mg PO QAM 02/01/16 [History] Gemfibrozil [Lopid] 600 mg PO BIDAC #60 tablet 02/02/16 [Rx] Albuterol Neb [Proventil Neb] 2.5 mg IH TID 06/30/16 [History] Citalopram [CeleXA] 20 mg PO DAILY 06/30/16 [History] Ergocalciferol (VITAMIN D2) [Vitamin D2] 50,000 unit PO QWEEK 06/30/16 [History] Metoprolol XL (24 HR) Succ [Toprol Xl] 12.5 mg PO DAILY 06/30/16 [History] Tizanidine HCl [Zanaflex] 2 mg PO BID PRN 06/30/16 [History] amLODIPine [Norvasc] 5 mg PO DAILY 06/30/16 [History] FLUoxetine HCl [Prozac] 20 mg PO DAILY 11/20/16 [History] Lansoprazole [Prevacid] 30 mg PO DAILY 11/20/16 [History] SUMAtriptan succinate [Imitrex] 50 mg PO AD PRN 11/20/16 [History] Tramadol HCl [Ultram] 50 - 100 mg PO Q6H PRN 11/20/16 [History] Ranolazine [Ranexa] 1,000 mg PO BID #60 tab 11/22/16 [Rx] levETIRAcetam [Keppra] 500 mg PO Q12HR tab 11/22/16 [Rx] Isosorbide MONOnitrate (24 HR) [Imdur] 120 mg PO DAILY 12/24/16 [History] 3 Allergy/AdvReac Type Severity Reaction Status Date / Time Hydroxychloroquine Allergy Severe Swelling Verified 12/23/16 15:33 of Lip/Tongue/Throat epinephrine Allergy Seizure Verified 12/23/16 15:33 [From Epi E-Z Pen] iron AdvReac Abdominal Verified 12/23/16 15:33 Pain - Meds/Allergy Pre-op Review Medications Reviewed: Yes Allergies Reviewed: Yes Beta Blockers on Current Med List: No Anesthesia Results - Labs 12/26/16 04:50 12/26/16 04:50 Anesthesia Exam O2 Sat O2 Sat by Pulse Oximetry 98 O2 Sat by Pulse Oximetry 93 O2 Sat by Pulse Oximetry 99 O2 Sat by Pulse Oximetry 97 O2 Sat by Pulse Oximetry 96 O2 Sat by Pulse Oximetry 95 O2 Sat by Pulse Oximetry 93 O2 Sat by Pulse Oximetry 94 O2 Sat by Pulse Oximetry 95 Vital Signs Temp Pulse Resp BP Pulse Ox 97.8 F 79 16 130/75 97 12/23/16 15:29 12/23/16 15:29 12/23/16 15:29 12/23/16 15:29 12/23/16 15:29 Height: 5'0 Weight: 206 lbs NPO (# of Hours): MN Pain Scale: 0 - HEENT Pupil (Motor): Pupils equal, EOMI Mallampati: III Teeth: Edentulous Oral Opening: Less than or equal to 3 - SHOE COBBLER LOC: Oriented SHOE COBBLER Motor: Normal RUE, Normal LUE, Normal RLE, Normal LLE, Normal Face SHOE COBBLER Sensory: Normal: RUE, LUE, RLE, LLE, Face - Cardiac Rhythm: Regular Murmur: None JVD: No Carotid Bruit: No - Pulmonary Breath Sounds: bilateral Clear Respiratory Effort: Symmetrical Anesthesia Assess/Plan ASA Score: 3 (MO Seizure) Modified Afia Scale for Level of Consciousness: Cooperative, oriented, and tranquil Anesthetic Plan: MAC Monitoring Plan: Standard Monitors Recovery Plan: Other (Discussed MAC, agreees to proceed)
--- NOTE | 2016-12-26 13:18 | Internal Med Progress Note ---
Date of Encounter: 12/26/16 Time of Encounter: 09:35 - Assessment and plan (1) Viral gastritis Current Visit: Yes Status: Acute (2) EKG abnormalities Current Visit: Yes Status: Acute (3) Epigastric pain Current Visit: Yes Status: Acute (4) Nausea and vomiting Current Visit: Yes Status: Acute Qualifiers: Vomiting type: unspecified Vomiting Intractability: intractable Qualified Code(s): R11.2 - Nausea with vomiting, unspecified (5) Seizure disorder Current Visit: Yes Status: Chronic (6) Anemia Current Visit: Yes Status: Acute Qualifiers: Anemia type: unspecified type Qualified Code(s): D64.9 - Anemia, unspecified - Subjective Interval history: Patient is sleeping. Had severe pain earlier this morning which improved after she received GI cocktail. Since then pain has been under control. She denies any fever chills or night sweats. No nausea at this time. Has been nothing by mouth overnight. Awaiting EGD planned for later today. Denies any hematemesis or melena - Constitutional Vitals: Temp Pulse Resp BP Pulse Ox 97.4 F L 69 18 136/73 98 12/26/16 12:19 12/26/16 12:19 12/26/16 12:19 12/26/16 12:19 12/26/16 12:19 General appearance: Present: A&O X 3, no acute distress, answers questions appropriately - Respiratory Respiratory exam: Present: CTAB. Absent: accessory muscle use, rales, rhonchi, wheezes - Cardiovascular Cardiovascular exam: Present: RRR, +S1, +S2. Absent: diastolic murmur, gallop, rubs, systolic murmur - GI/Abdominal GI/Abdominal exam: Present: normal bowel sounds, soft, tenderness (Mild epigastric), no peritoneal signs. Absent: distended - Extremities Exam Extremities exam: Present: warm, radial pulses palpable and symmetrical. Absent : calf tenderness, cyanotic, pedal edema - Neurological Exam Neurological exam: Present: alert, no focal deficits. Absent: facial droop, speech deficit Internal Medicine: Result - Labs CBC & Chem 7: 12/26/16 04:50 12/26/16 04:50 Labs: Short CBC 12/25/16 12/26/16 Range/Units 15:53 04:50 WBC 4.0 L (4.3-11.1) K/mcL Hgb 11.2 L 11.2 L (11.5-15.4) g/dL Hct 35.1 L 34.6 L (35.3-44.9) % Plt Count 280 (140-400) K/mcL Neutrophils # 2.4 (1.6-8.9) K/mcL BMP 12/26/16 04:50 Sodium 143 Potassium 3.1 L Chloride 111 H Carbon Dioxide 26 BUN 14 Creatinine 0.63 Glucose 115 H Calcium 8.5 L Consult Discharge Plan - Plan Referrals: Ronnell,Kenneth Kim MD [Primary Care Provider] -
--- NOTE | 2016-12-26 13:32 | Discharge Summary ---
Date of Encounter: 12/26/16 Time of Encounter: 13:22 - Discharge Diagnosis (1) Viral gastritis Priority: Primary Status: Acute (2) EKG abnormalities Priority: Secondary Status: Acute (3) Epigastric pain Priority: Secondary Status: Acute (4) Nausea and vomiting Priority: Secondary Status: Acute Qualifiers: Vomiting type: unspecified Vomiting Intractability: intractable Qualified Code(s): R11.2 - Nausea with vomiting, unspecified (5) Seizure disorder Priority: Secondary Status: Chronic (6) Anemia Priority: Secondary Status: Acute Comments: With iron and folic acid deficiency Qualifiers: Anemia type: other cause Other causes of anemia: other cause, not classified Qualified Code(s): D64.89 - Other specified anemias (7) Dysphagia Priority: Secondary Status: Chronic Qualifiers: Dysphagia type: esophageal phase Qualified Code(s): R13.14 - Dysphagia, pharyngoesophageal phase - Discharge Medications Prescriptions: Folic Acid 1 mg PO DAILY #30 tablet Sucralfate [Carafate] 1 gm PO QIDAC #120 tablet Home Medications: Nitroglycerin 0.4 mg SL Q5M PRN 12/31/14 [History] Furosemide [Lasix] 20 mg PO DAILY PRN 05/05/15 [History] Clopidogrel [Plavix] 75 mg PO QAM 12/08/15 [History] Esomeprazole Magnesium [Nexium] 40 mg PO QAM 12/08/15 [History] Ezetimibe [Zetia] 10 mg PO QAM 12/08/15 [History] Gabapentin [Neurontin] 800 mg PO TID 12/08/15 [History] Denosumab [Prolia (For Outpatient Infusion)] 60 mg SQ [id number] 12/27/15 [History ] Oxygen 4 l IH CONT 12/27/15 [History] Ubidecarenone [Co Q10] 100 mg PO BID 12/27/15 [History] Aspirin 81 mg PO QAM 02/01/16 [History] Gemfibrozil [Lopid] 600 mg PO BIDAC #60 tablet 02/02/16 [Rx] Albuterol Neb [Proventil Neb] 2.5 mg IH TID 06/30/16 [History] Citalopram [CeleXA] 20 mg PO DAILY 06/30/16 [History] Ergocalciferol (VITAMIN D2) [Vitamin D2] 50,000 unit PO QWEEK 06/30/16 [History] Metoprolol XL (24 HR) Succ [Toprol Xl] 12.5 mg PO DAILY 06/30/16 [History] Tizanidine HCl [Zanaflex] 2 mg PO BID PRN 06/30/16 [History] amLODIPine [Norvasc] 5 mg PO DAILY 06/30/16 [History] FLUoxetine HCl [Prozac] 20 mg PO DAILY 11/20/16 [History] Lansoprazole [Prevacid] 30 mg PO DAILY 11/20/16 [History] SUMAtriptan succinate [Imitrex] 50 mg PO AD PRN 11/20/16 [History] Tramadol HCl [Ultram] 50 - 100 mg PO Q6H PRN 11/20/16 [History] Ranolazine [Ranexa] 1,000 mg PO BID #60 tab 11/22/16 [Rx] levETIRAcetam [Keppra] 500 mg PO Q12HR tab 11/22/16 [Rx] Isosorbide MONOnitrate (24 HR) [Imdur] 120 mg PO DAILY 12/24/16 [History] Folic Acid 1 mg PO DAILY #30 tablet 12/26/16 [Rx] Sucralfate [Carafate] 1 gm PO QIDAC #120 tablet 12/26/16 [Rx] Allergies/Adverse Reactions: 3 Allergy/AdvReac Type Severity Reaction Status Date / Time Hydroxychloroquine Allergy Severe Swelling Verified 12/23/16 15:33 of Lip/Tongue/Throat epinephrine Allergy Seizure Verified 12/23/16 15:33 [From Epi E-Z Pen] iron AdvReac Abdominal Verified 12/23/16 15:33 Pain Procedures/tests Complete & Pending: Procedures Performed prior 72 hours Category Date Time Status EV limited echocardiogram Routine Y 12/24/16 11:29 Completed Date of admission: 12/23/16 21:00 Primary care physician: Kenneth Reynaga MD Consults: 12/24/16 07:30 Consult to Cardiology [CONS] Routine Comment: Consulting Provider: Cardiology Beverley Reason for Consult: CAD, new anterior TWI Call Completed: No 12/25/16 08:59 Consult to Gastroenterology [CONS] Routine Consulting Provider: Gastroenterology Manito Reason for Consult: Abdominal Pain / ? Gastritis Time Notified: 08:59 Call Completed: Yes Discharging clinician: Blas Lane Anticipated date of discharge: 12/26/16 - Patient Status Disposition: Home, Self-Care Condition: Good Functional capacity at discharge: independent ambulation Overall status at discharge: patient is progressing back to baseline - Discharge Instructions Instructions: Complete Blenderized Diet (DC), Chronic Hypertension (DC), Anemia (GEN) Follow Up With: Kenneth Reynaga MD [Primary Care Provider] - (in 1-2 weeks) Joel Junior MD [Partnered Physician] - (In one week) - Diet and Activity Activity: as per physical therapy Diet: low fat, low cholesterol, low salt diet Hospital course: Ms. Ratliff is a 61 year old female with history of arthritis, asthma, CHF COPD and coronary artery disease was hospitalized here with acute epigastric abdominal pain associated with nausea or vomiting and some diarrhea. She was diagnosed with possible viral gastritis and was treated symptomatically with IV hydration, IV PPI. She did not tolerate any sort of diet and so was placed nothing by mouth and gastroenterology was consulted for further evaluation. Patient did have some subtle anterior EKG changes which were new compared to her previous EKG. Cardiology was consulted for this. Her troponins were negative. Cardiology recommended doing a 2-D echocardiogram. Echocardiogram showed no an EF of 60-65% with normal wall motion. No further cardiac workup was recommended. Given the patient's symptoms of epigastric pain, patient was recommended upper GI endoscopy. She was scheduled for the procedure today and unfortunately the scope was unable to be passed due to presence of esophageal strictures. As the patient is currently on Plavix, dilation was not attempted. GI recommends that the patient undergo dilation as an outpatient after holding Plavix. The patient is actually feeling better this morning and is tolerating liquid diet. She is stable to be discharged from medical standpoint and will follow up with GI for further management and outpatient upper GI endoscopy. She will follow up with her primary care provider. She does have anemia with hemoglobin of 11.2. This is due to chronic iron deficiency. But patient also has folic acid deficiency. She will be placed on oral folate acid replacement therapy. She is intolerant of oral iron and gets iron infusions occasionally at the cancer center. Her iron levels were low at 2 and she may benefit from outpatient iron transfusion through her primary care provider and the cancer center. Her stool was positive for occult blood and so patient will be on PPI and will follow up with GI for further management. She has not had any significant drop in her hemoglobin here and no overt bleeding. Her thyroid hormone levels were normal. At this time, the patient will be discharged home and will follow up with her primary care provider. She is advised to continue with liquid and soft diet and she sees gastroenterology. - Time Spent with Patient Total time spent providing and/or coordinating discharge services: Greater than 30 minutes (40 min) - Constitutional Vitals: Temp Pulse Resp BP Pulse Ox 97.4 F L 69 18 136/73 98 12/26/16 12:19 12/26/16 12:19 12/26/16 12:19 12/26/16 12:19 12/26/16 12:19 General appearance: Present: A&O X 3, no acute distress, answers questions appropriately - Neck Neck exam general surgery: Present: supple, trachea midline. Absent: lymphadenopathy - Respiratory Respiratory exam: Present: CTAB. Absent: accessory muscle use, rales, rhonchi, wheezes - Cardiovascular Cardiovascular exam: Present: RRR, +S1, +S2. Absent: diastolic murmur, gallop, rubs, systolic murmur - GI/Abdominal GI/Abdominal exam: Present: normal bowel sounds, soft, tenderness (mild epigastric), no peritoneal signs. Absent: distended - Neurological Exam Neurological exam: Present: alert, oriented X3, no focal deficits. Absent: facial droop, speech deficit
[2016-12-26 15:32] VITALS: BP 125/78
== END 2016-12-26 16:50 | disposition home or self-care (01) | DRG 392 ==
LOC: 3NENU 15:26 → EMEROO 15:26 → 3NENU 20:11
PROVIDERS: ADMIT Nurse Practitioner Acute Care; ATTEND Internal Medicine

== ENCOUNTER 2017-04-20 09:15 | Observation (INO) ==
[~2017-04-20 09:15] MED LIST: Heparin 1,000 UNIT, 0.9 % Sodium Chloride 500 ML INARTERIAL ONE
[2017-04-20] MEDS ORDERED: 0.9 % Sodium Chloride 1,000 ML ONE ×2 (09:58→10:50)
[2017-04-20] MEDS: 0.9 % Sodium Chloride 1,000 ML IVC SCH (10:05)
[2017-04-20] MEDS ORDERED: Nitroglycerin 1,000 MCG/10 ML VIAL IV ONE (10:51)
[2017-04-20] MEDS ORDERED: *HR* Heparin 10,000 UNIT/10 ML VIAL ONE (10:51)
[2017-04-20] MEDS ORDERED: *HR* FentaNYL (PF) 100 MCG/2 ML VIAL ONE (11:14)
[2017-04-20] MEDS ORDERED: *HR* Midazolam HCl 2 MG/2 ML VIAL ONE (11:14)
[2017-04-20] MEDS ORDERED: Tirofiban 12.5 MG/250ML 12.5 MG/250 ML BAG ONE (11:31)
[2017-04-20] MEDS ORDERED: SUMAtriptan succinate 50 MG TABLET PO PRN (12:30)
[2017-04-20] MEDS ORDERED: Nitroglycerin 0.4 MG TAB.SUBL SL PRN (12:30)
[2017-04-20] MEDS ORDERED: Denosumab 60 MG/ML SYRINGE SQ SCH (12:30)
[2017-04-20] MEDS ORDERED: Levalbuterol 1 PUFF INHALER IH PRN (12:30)
[2017-04-20] MEDS ORDERED: NON-FORMULARY MEDICATION 1 EACH EACH (Oxygen [Oxygen] 4 L) IH SCH (12:30)
--- NOTE | 2017-04-20 13:58 | Invasive Diagnostic Lab Proc ---
Name: Viri Ratliff Date of Study: 04/20/2017 Date: 1955 Ht: 62.0in Medical Record#: [id number] Age: 61 Wt: 195.33lb Gender: Female BSA: 1.89 Order #: [id number] BMI: 35.72 Physicians Procedure Physician: Angélica Figueroa MD Referring MD: Kenneth Reynaga MD Referring MD: Staff Name Position Time In Sites, Elsa RT (R) Monitor 11:00 AM Precious Allred RT Scrub 11:00 AM Gabriella Sanches RN Urban Anthropologist 11:00 AM Indications Indication Coronary Artery Disease Procedures Performed Procedure L HRT ART/GRFT ANGIO PRQ CARD ZORA STENT W/ANGIO 1 VSL Pre-Procedure Checklist Informed consent is complete signed and on chart. H&P is on chart. ID band is on and ID verified with patient. Patient NPO for procedure The procedure was described for the patient and questions were answered. Blood Pressure: 101/66 ECG is on chart. Rhythm: NSR Plan of Care Patient will tolerate the procedure without complications. Adequate level of comfort will be maintained. Hemodynamics will remain stable Patient will recover from procedure without complications. Respiratory function will be maintained. Cardiac rhythm will remain stable. Patient temperature will be maintained. Patient and/or family have verbalized understanding of the procedure. Patient Education Chief Complaint/Reason for Test: Cardiac Cath Developmental Category: Adult (18-64 years) Developmentally Appropriate for Age: Yes Learning Barriers: None Education Needs: Procedure Education Method: Verbal Information Taught: Cardiac Cath Educational Evaluation: Able to repeat information Intravenous Access Time IV Size Location DC'd Fluid/Drip Rate Units RN 10:04 AM Started with 20g 1 1/4" Lt Antecubital 0.9NaCl 50 ml/hr King Manzanares RN Allergies iron Hydroxychloroquine epinephrine Vital Signs Time BP (mmHg) HR (bpm) O2 Sat. RR (bpm) LOC 10:05 AM 101 / 62 69 98 % 16 5 = Fully awake and oriented or at pre-proc level 11:14 AM / % 5 = Fully awake and oriented or at pre-proc level 11:14 AM / % 5 = Fully awake and oriented or at pre-proc level 11:30 AM 135 / 83 64 100 % 13 11:35 AM 138 / 89 68 99 % 13 11:40 AM 145 / 90 68 100 % 19 11:45 AM 145 / 86 70 100 % 11 11:50 AM 137 / 86 70 100 % 19 11:55 AM 143 / 85 66 100 % 10 12:00 PM 140 / 88 65 100 % 13 12:05 PM 125 / 78 64 100 % 13 12:10 PM 136 / 72 66 100 % 13 11:10 AM 162 / 89 66 100 % 15 11:15 AM 141 / 82 64 100 % 19 11:20 AM 129 / 83 64 95 % 11 11:25 AM 140 / 88 66 96 % 13 12:30 PM 108 / 77 65 93 % 18 5 = Fully awake and oriented or at pre-proc level 12:49 PM 103 / 58 61 98 % 16 5 = Fully awake and oriented or at pre-proc level 01:00 PM 104 / 64 65 98 % 16 4 = Oriented but drowsy 01:15 PM 113 / 78 63 97 % 16 4 = Oriented but drowsy 01:30 PM 103 / 64 65 98 % 16 5 = Fully awake and oriented or at pre-proc level 01:45 PM 103 / 64 65 100 % 16 5 = Fully awake and oriented or at pre-proc level Procedural Medications Time Medication Dose Units Method Given By 11:13 AM Oxygen 2 L/min nasal cannula Gabriella Sanches RN 11:13 AM Versed 1 mg Intravenous Gabriella Sanches RN 11:14 AM Fentanyl 50 mcg Intravenous Gabriella Sanches RN 11:19 AM Lidocaine 2% 10 ml Subcutaneous Angélica Figueroa MD 11:31 AM Heparin 3500 units Intravenous Gabriella Sanches RN 11:36 AM Aggrastat Bolus: 46 ml Intravenous Gabriella Sanches RN 11:36 AM Aggrastat 12.5mg/250ml 16.5 ml Intravenous Gabriella Sanches RN 11:49 AM Nitroglycerin 100 mcg Intracoronary Orlando Figueroa MD 11:59 AM Plavix 75 mg Orally Gabriella Sanches RN ASA Classification: CLASS II- Mild systemic disease (i.e. well-controlled diabetes, hypertension, asthma, cigarette smoking) Efrain Score Preprocedure Postprocedure Activity 2- Moves 4 extremities sustained head lift Activity 2- Moves 4 extremities sustained head lift Circulation 2- SBP +/= 20 points of pre-anesthetic level Circulation 2- SBP +/= 20 points of pre-anesthetic level Consciousness 2- Awake and alert oriented x 3 Consciousness 2- Awake and alert oriented x 3 O2 Saturation 2- Able to maintain O2 satruation of 92% on room air O2 Saturation 2- Able to maintain O2 satruation of 92% on room air Respiratory 2- Able to deep breathe and cough well Respiratory 2- Able to deep breathe and cough well Total Score 10 Total Score 10 Contrast Agent: Isovue Diagnostic Contrast: 155 ml Total Contrast: 155 ml Fluoro Dose: 1087 mGy Activated Clotting Time Time Seconds to Clot 12:02 PM 223 Procedure Log Time Note Enter By 11:00 AM Pt arrived to laborer tin can 2 at 11:00 tsites 11:00 AM Elsa Plata RT (R) Position: Monitor Time in: 11:00 tsites 11:00 AM Precious Allred RT Position: Scrub Time in: :00 tsites 11:00 AM Gabriella Sanches RN Position: Urban Anthropologist Time in: 11:00 tsites 11:03 AM [facility] AM Meet and greet completed tsites 11:03 AM Sign in performed according to hospital policy. tsites 11:03 AM Procedure start 11:03 tsites 11:09 AM CathStat 11:09 AM Vitals capture started with the following parameters, Patient=Adult, Interval=5 min, Initial Eetyaodt=628 mmHg, Deflation Rate=5 mmHg, Cuff placed on Right Leg 11:10 AM HR=66 bpm, SCHK=666/89 mmhg, GtX7=576.0 %, Resp=15 B/min 11:11 AM Recorded ECG: HR=68 Condition=Condition 1 11:13 AM Patient charges- Angio tray pack, Navilyst 3mm J, Pulse Oximetry and ACIST tubing and transducer tsites 11:13 AM IV Supplies used: J loop Angio Cath. tsites 11:13 AM Case Delayed No tsites 11:13 AM Hair removed from procedure site in holding area using clippers. Bilateral groin prepped with Chloraprep by Gabriella Sanches RN, safety strap applied then patient was draped. Skin intact. tsites 11: AM Time: 11:13 Oxygen on at 2 L/min per nasal cannula by Gabriella Sanches RN tsites : AM Time: : Versed 1 mg Intravenous Given by Gabriella Sanches RN tsites 14 AM Time: 11:14 Fentanyl 50 mcg Intravenous Given by Gabriella Sanches RN tsites 11:14 AM Time: 11:14 Patient comfortable and pain free: Yes tsites 11:14 AM Time: :14LOC: 5 = Fully awake and oriented or at pre-proc level tsites 11:14 AM Clinical Presentation: Stable angina tsites 11:15 AM HR=64 bpm, DRKJ=193/82 mmhg, UhN6=415.0 %, Resp=19 B/min 11:17 AM Pressure channel 1 zero failed. 11:17 AM Pressure channel 1 zeroed. 11:19 AM Time out performed according to hospital policy tsites 11:19 AM Time: : 10 ml Lidocaine 2% to left groin Subcutaneous Given by Angélica Figueroa MD tsites 11:20 AM Micro-Introducer Kit utilized for sheath placement tsites 11:20 AM HR=64 bpm, YLZE=465/83 mmhg, SpO2=95 %, Resp=11 B/min 11:20 AM Access obtained by percutaneous puncture. 6Fr 10cm Terum[employer] [place] sheath placed in right Femoral artery. [id number] tsites 11:20 AM 5cc of contrast injected into the right femoral artery tsites 11:23 AM 5Fr FR 4 catheter inserted over the wire DNC tsites 11:23 AM 0.035 145cm Navilyst 3mmJ wire [id number] tsites 11:24 AM SVG to the 1st OM angio performed in multiple views. tsites 11:25 AM Recorded Pressure: Ao, HR=65, Condition=Condition 1 (Aorta) Ao 87/63/76 11:25 AM HR=66 bpm, EOEJ=781/88 mmhg, SpO2=96 %, Resp=13 B/min 11:26 AM Left YULISSA to the LAD angio performed in multiple views. tsites 11:28 AM wire reinserted catheter removed tsites 11:28 AM 5Fr AL1 catheter inserted over the wire [id number] tsites 11:28 AM RCA angiography performed in multiple views. tsites 11:29 AM Recorded Pressure: Ao, HR=62, Condition=Condition 1 (Aorta) Ao 50/-42/3 11:29 AM Time: 11:14 Patient comfortable and pain free: Yes tsites 11:29 AM Time: :14LOC: 5 = Fully awake and oriented or at pre-proc level tsites 11:30 AM wire reinserted catheter removed tsites 11:30 AM HR=64 bpm, IMNN=122/83 mmhg, YbO5=304 %, Resp=13 B/min 11:30 AM 5Fr FL 4 catheter inserted over the wire [facility] tsites 11:31 AM LCA angiography performed in multiple views. tsites 11:32 AM Lesion found in Mid LAD. Pre Stenosis: 100 Pre MONIQUE Flow: tsites 11:32 AM Lesion found in Proximal Circumflex. Pre Stenosis: 100 Pre MONIQUE Flow: tsites 11:33 AM Lesion found in Proximal RCA. Pre Stenosis: 70 Pre MONIQUE Flow: tsites 11:33 AM Mid/Distal Left Anterior Descending Coronary Artery and diagonal branches with 100% stenosis. If graft is supplying this area, 0 % stenosis tsites 11:33 AM Right Coronary, Right Posterior Descending Arteries with Right Posterolateral and Acute Marginal branches with 70 % stenosis. If graft is supplying this area, 0 % stenosis tsites 11:33 AM Recorded Pressure: LV, HR=69, Condition=Condition 1 (Left Ventricle) LV 102/13/22 11:34 AM wire reinserted catheter removed tsites 11:34 AM 5Fr Pigtail catheter inserted over the wire [facility] tsites 11:34 AM Catheter selectively placed in left ventricle tsites 11:34 AM Bolus angiogram of left Ventricle complete: 10 ml/sec for a total of 20 mls tsites 11:34 AM Recorded Pressure: LV, Ao, HR=66, Condition=Condition 1 (Left Ventricle) LV 72/16/27, (Aorta) Ao 88/46/69 11:34 AM wire reinserted catheter removed tsites 11:35 AM PCI Status Elective tsites 11:35 AM PCI Indication: PCI for high risk Non-STEMI or unstable angina tsites 11:35 AM HR=68 bpm, GNXA=179/89 mmhg, SpO2=99 %, Resp=13 B/min 11:35 AM 6Fr AL1 Runway guide catheter was used to cannulate the PCI vessel successfully. reused? No tsites 11:35 AM Inflation device was opened. tsites 11:36 AM Time: 11:31 Heparin 3500 units Intravenous Given by Gabriella Sanches RN tsites 11:36 AM Time: 11:36 Aggrastat Bolus: 46 ml Intravenous Given by Gabriella Sanches RN Z[place]aga pump tsites 11:36 AM Time: 11:36 Aggrastat 12.5mg/250ml 16.5 ml Intravenous Given by Gabriella Sanches RN [place] pump tsites 11:38 AM .014 Fielder cm guide wire across target lesion- successful. reused? No tsites 11:39 AM 2.0 mm x 12 mm Emerge Monorail balloon across target lesion- successful. reused? No tsites 11:40 AM Recorded Pressure: Ao, HR=68, Condition=Condition 1 (Aorta) Ao 84/10/54 11:40 AM HR=68 bpm, ZKXM=086/90 mmhg, DjS4=394 %, Resp=19 B/min 11:40 AM Balloon inflated @ 6 rita for 12 seconds tsites 11:42 AM Balloon inflated @ 8 rita for 8 seconds tsites 11:43 AM Balloon catheter removed intact. tsites 11:45 AM 3.5mm x 16mm Synergy drug-eluting stent across target lesion- successful Lot #[id number] tsites 11:45 AM HR=70 bpm, BWHM=381/86 mmhg, UgJ9=288 %, Resp=11 B/min 11:47 AM Recorded Pressure: Ao, HR=60, Condition=Condition 1 (Aorta) Ao 94/60/76 11:47 AM Stent deployed @ 14 rita for 16 seconds tsites 11:48 AM Stent delivery system removed intact. tsites 11:49 AM Time: 11:49 Nitroglycerin 100 mcg Intracoronary Given by Orlando Figueroa MD tsites 11:50 AM HR=70 bpm, WURD=233/86 mmhg, JwV4=454 %, Resp=19 B/min 11:51 AM Lesion found in Mid RCA. Pre Stenosis: 70 Pre MONIQUE Flow: tsites 11:52 AM Lesion found in Right PDA. Pre Stenosis: 60 Pre MONIQUE Flow: tsites 11:55 AM HR=66 bpm, YZJU=713/85 mmhg, JwT3=604 %, Resp=10 B/min 11:57 AM Procedure completed at 11:57 tsites 11:58 AM act DRAWN tsites 11:59 AM Time: 11:59 Plavix 75 mg Orally Given by Gabriella Sanches RN tsites 12:00 PM HR=65 bpm, THYH=911/88 mmhg, BfF1=978 %, Resp=13 B/min 12:02 PM At 12:02 the ACT was 223 seconds. tsites 12:05 PM HR=64 bpm, CBVI=635/78 mmhg, WdZ2=748 %, Resp=13 B/min 12:05 PM Sign out completed: Radiation Dose 1087 mGy Fluoro Time: 10.6 Isovue 370 - 200ml contrast 155 ml given by Angélica Figueroa MD. Complications: NoneCardiac Rehab Consult needed: YesConfirmed administered medications: Yes tsites 12:05 PM Isovue 370 - 200ml,1 Bottle(s) used. tsites 12:05 PM Arterial sheath pulled, Mynx closure device used and was Successful S/N. tsites 12:06 PM Estimated Blood Loss: minimal tsites 12:06 PM Post ECG NSR tsites 12:06 PM Post Blood Pressure 125/78 tsites 12:06 PM 12:06 Post Pulses Bilateral DP & PT 1+ tsites 12:06 PM Information taught Cardiac Cath, PCI, and Mynx tsites 12:06 PM Education needs Procedure, Plan of Care, and Responsibilities of Patient in Care tsites 12:06 PM Learning barriers :None tsites 12:06 PM Education Methods Verbal tsites 12:07 PM Education evaluation Able to repeat information tsites 12:07 PM Site status No bleeding/hematoma - Rt Groin as reported by Jocelyn Espinoza RT (R) at 12:07 tsites 12:07 PM Opsite applied tsites 12:10 PM HR=66 bpm, IXFM=059/72 mmhg, PuD5=031 %, Resp=13 B/min 12:17 PM Report given to KAYLA RN Pt taken to Holding room Room #4. 12:17 tsites 12:17 PM Plavix, Effient or Brilinta given Yes tsites 12:17 PM Delay to floor Bed availability tsites 12:17 PM Patient out of room: 12:17 tsites 12:18 PM Family placed in consult room. tsites 01:44 PM Report given to Nerissa ELLIOTT Pt taken to 2A Room #37. 13:44 [email or web address] 01:44 PM Delay to floor Bed availability [email or web address] 01:45 PM Patient out of room: 13:45 [email or web address] Complications Complication None Hemodynamics Pressures Site Systolic/A Wave Diastolic/V Wave Mean AO 87 63 76 AO 50 -42 3 LV 102 13 22 LV 72 16 27 AO 88 46 69 AO 84 10 54 AO 94 60 76 Post Procedure Information Blood Pressure: 125/78 mmHg Rhythm: NSR Post procedural instructions were given Closure Device Time Device Success/Fail 04/20/2017 12:07:00 PM MynxGrip Successful Site Checks Time Location Status Staff Sheath In? Note 12:07 PM Rt Groin No bleeding/hematoma Jocelyn Espinoza RT (R) 12:30 PM Rt Groin No bleeding/ No Hematoma King Manzanares RN 12:49 PM Rt Groin No bleeding/ No Hematoma Jen Gutierrez RN 01:00 PM Rt Groin No bleeding/ No Hematoma Marcella Patel RN 01:15 PM Rt Groin No bleeding/ No Hematoma Marcella Patel RN 01:30 PM Rt Groin No bleeding/ No Hematoma Marcella Patel RN 01:45 PM Rt Groin No bleeding/ No Hematoma King Manzanares RN Pulses Time Site Pre-Procedure Post-Procedure Note 04/20/2017 10:05:00 AM Bilateral DP & PT 1+ 04/20/2017 10:05:00 AM Bilateral radial 2+ 12:06:00 PM Bilateral DP & PT 1+ 04/20/2017 12:50:00 PM Bilateral DP & PT 1+ 04/20/2017 1:00:00 PM Bilateral DP & PT 1+ 04/20/2017 1:15:00 PM Bilateral DP & PT 1+ 04/20/2017 1:30:00 PM Bilateral DP & PT 1+ Updated by Jen Gutierrez RN on 04/20/2017 1:49:47 PM electronically signed on 04/20/2017 1:53:27 PM with status of Final
[2017-04-20 15:06] LABS: Basophils % 0.7 %; Eosinophils # 0.1 K/mcL (0.0-0.6); Eosinophils % 2.8 %; Hematocrit 27.5 % (35.3-44.9); Hemoglobin 8.2 g/dL (11.5-15.4); Immature Granulocytes % 0.3 % (0-4); Lymphocytes # 0.9 K/mcL (0.6-4.6); Lymphocytes % 32.1 %; Mean Corpuscular HGB Conc 29.8 g/dL (31.6-35.5); Mean Corpuscular Hemoglobin 24.4 pg (28.0-33.3); Mean Corpuscular Volume 81.8 fL (83.0-100.0); Mean Platelet Volume 9.6 fL (9.4-12.4); Monocytes # 0.3 K/mcL (0.0-1.3); Monocytes % 9.3 %; Neutrophils # 1.6 K/mcL (1.6-8.9); Platelet Count 316 K/mcL (140-400); Red Blood Count 3.36 M/mcL (3.82-4.97); Red Cell Distribution Width 15.4 % (11.5-14.5); Segmented Neutrophils % 54.8 %
[2017-04-20 15:14] LABS: BUN/Creatinine Ratio 29 (6-26); Blood Urea Nitrogen 15 mg/dL (8-23); Calcium 8.4 mg/dL (8.6-10.3); Carbon Dioxide 28 mEq/L (23-29); Chloride 108 mEq/L (98-107); Glucose 134 mg/dL (70-105); Osmolality,Calculated 291 (280-300); Potassium 3.4 mEq/L (3.5-5.1); Sodium 139 mEq/L (136-145); eGFR For African Americans > 60 (> 60); eGFR For Non-African Americans > 60 (> 60)
[2017-04-20] MEDS ORDERED: Albuterol 2.5 MG/3 ML NEBULIZER ONE (16:04)
[2017-04-20] MEDS: Gabapentin 400 MG CAPSULE PO SCH ×2 (16:56→19:54)
[2017-04-20] MEDS: Albuterol 2.5 MG/3 ML NEBULIZER IH SCH ×2 (16:59→20:12)
[2017-04-20] MEDS: levETIRAcetam 250 MG TABLET PO SCH (17:59)
[2017-04-20] MEDS: Isosorbide MONOnitrate (24 HR) 60 MG TAB.ER.24H PO SCH (19:54)
[2017-04-20] MEDS: Ranolazine 500 MG TAB.ER.12H PO SCH (19:54)
[2017-04-20] MEDS ORDERED: NON-FORMULARY MEDICATION 1 EACH EACH (Ubidecarenone [Co Q10] 100 MG) PO SCH (21:00)
[2017-04-21] MEDS: Albuterol 2.5 MG/3 ML NEBULIZER IH SCH ×3 (00:02→16:16)
[2017-04-21] MEDS: 0.9 % Sodium Chloride 1,000 ML IVC SCH (01:09)
[2017-04-21] MEDS: levETIRAcetam 250 MG TABLET PO SCH ×2 (05:26→18:32)
[2017-04-21 07:56] LABS: Basophils % 0.3 %; Eosinophils # 0.1 K/mcL (0.0-0.6); Hematocrit 25.9 % (35.3-44.9); Hemoglobin 7.9 g/dL (11.5-15.4); Immature Granulocytes % 0.3 % (0-4); Lymphocytes # 0.6 K/mcL (0.6-4.6); Mean Corpuscular HGB Conc 30.5 g/dL (31.6-35.5); Mean Corpuscular Hemoglobin 24.8 pg (28.0-33.3); Mean Corpuscular Volume 81.2 fL (83.0-100.0); Mean Platelet Volume 9.2 fL (9.4-12.4); Monocytes # 0.3 K/mcL (0.0-1.3); Monocytes % 10.3 %; Platelet Count 272 K/mcL (140-400); Red Blood Count 3.19 M/mcL (3.82-4.97); Red Cell Distribution Width 15.2 % (11.5-14.5); Segmented Neutrophils % 66.1 %
[2017-04-21] MEDS: Isosorbide MONOnitrate (24 HR) 60 MG TAB.ER.24H PO SCH ×2 (08:00→21:44)
[2017-04-21] MEDS: Ranolazine 500 MG TAB.ER.12H PO SCH ×2 (08:00→21:43)
[2017-04-21] MEDS: Gabapentin 400 MG CAPSULE PO SCH ×3 (08:01→21:43)
[2017-04-21] MEDS: Aspirin 81 MG TAB.CHEW PO SCH (08:01)
[2017-04-21 08:10] LABS: BUN/Creatinine Ratio 23 (6-26); Blood Urea Nitrogen 14 mg/dL (8-23); Calcium 8.4 mg/dL (8.6-10.3); Carbon Dioxide 25 mEq/L (23-29); Chloride 111 mEq/L (98-107); Glucose 110 mg/dL (70-105); Osmolality,Calculated 293 (280-300); Potassium 3.8 mEq/L (3.5-5.1); Sodium 141 mEq/L (136-145); eGFR For African Americans > 60 (> 60); eGFR For Non-African Americans > 60 (> 60)
[2017-04-21] MEDS: amLODIPine 5 MG TABLET PO SCH (08:37)
[2017-04-21] MEDS: Metoprolol XL (24 HR) Succ 25 MG TAB.ER.24H PO SCH (08:38)
--- NOTE | 2017-04-21 11:42 | Cardiology Progress Note ---
Date of Encounter: 04/21/17 Time of Encounter: 11:40 Assessment and Plan (1) CAD (coronary artery disease) Current Visit: No Status: Chronic Hx of CABG and PCI. S/P LHC yesterday Severe atherosclerotic coronary artery disease, The left ventricle is normal and has normal contractility EF 60%, Patient had successful PTCA/Drug-Eluting Stent placement in the proximal RCA, S/P CABG 2 of 3 patent bypass grafts, SVG to the OM with moderate Non obstructive CAD. DAPT (ASA and Plavix) uninterrupted x 1 year. Pt verbalizes understanding. Continue BB and Statin. Acute anemia--HGB 7.9 today. Was 8.2 yesterday, 11.2 12/26. Pt denies any sign of active bleeding. Consulting surgery. Transfuse [address] ABD/Pelvis without contrast obtained. No evidence of bleeding. Right femoral access site healing well. No bleeding, hematoma or ecchymosis noted. Unable to discharge today. Qualifiers: Coronary Disease-Associated Artery/Lesion type: unspecified vessel or lesion type [place] vs. transplanted heart: [place] heart Associated angina: without angina Qualified Code(s): I25.10 - Atherosclerotic heart disease of [place] coronary artery without angina pectoris (2) Anemia Current Visit: Yes Status: Acute HGB 7.9 today, 8.2 yesterday, 11.2 11/2016. Hemoccult positive stool 11/2016. Pt underwent EGD 12/2016--characteristics of GAVE--cold biopsy, esophageal dilation. I do not see any recent colonoscopy on file. Given HGB of 7.9 and her cardiac disease s/p PCI, will transfuse 1 unit PRBC. Called and discussed with surgery/Dr. Calabrese. Consult placed. Appreciate their recommendations on if further procedures (repeat EGD, colonscopy) are needed. Will be unable to stop ASA and Plavix given PCI yesterday. Qualifiers: Anemia type: other cause Other causes of anemia: other cause, not classified Qualified Code(s): D64.89 - Other specified anemias Discussion w patient/family: The assessment and plan as outlined above was discussed with the patient and/or family members who expressed understanding and agreement. All questions were answered. Thank you for involving us in the care of your patient. Please call with any questions. I will discuss all the above with Dr. Richmond and make changes as necessary. Subjective Principal diagnosis: CAD Interval history: Pt presented yesterday for outpt LHC--Severe atherosclerotic coronary artery disease. The left ventricle is normal and has normal contractility EF 60% Patient had successful PTCA/Drug-Eluting Stent placement in the proximal RCA. S/ P CABG 2 of 3 patent bypass grafts. SVG to the OM with moderate Non obstructive CAD. HGB this AM 7.9. Was 8.2 yesterday---was 11.2 12/26. She reports weight loss over the past [address] abd/pelvis no acute bleeding. Reports feeling fatigued for months. Denies chest pain currently. Objective Vital Signs, Last 4 Hours Temp Pulse Resp BP Pulse Ox 04/21/17 08:03 98.1 F 72 14 95/62 98 Vital Signs Temp Pulse Resp BP Pulse Ox 04/21/17 08:03 98.1 F 72 14 95/62 98 04/21/17 04:02 98.0 F 78 16 110/67 92 04/21/17 00:03 18 97 04/20/17 23:42 98.0 F 75 16 92/58 99 04/20/17 19:07 97.8 F 72 16 106/62 98 04/20/17 16:07 97.7 F 67 16 91/55 95 04/20/17 15:00 97.8 F 69 16 105/69 99 04/20/17 14:27 97.7 F 68 16 103/63 99 04/20/17 14:07 98 Intake and Output 04/20/17 04/21/17 04/21/17 23:59 07:59 15:59 Intake Total 240 / 240 1000 / 1000 0 / 0 Output Total 0 / 0 Balance 240 / 240 1000 / 1000 0 / 0 Intake: IV Fluids 1000 / 1000 0.9 % Sodium Chloride 1,000 ML 1000 / 1000 @ 50 mls/hr IVC .Q20H [facility] Rx#: [id number] Oral 240 / 240 0 / 0 Output: Urine 0 / 0 Other: Meal Dinner Percent of Meal Consumed 100% # Voids 1 Weight 90.9 kg Blood Glucose* 118 133 Patient Weight 04/21/17 23:59 Weight 90.9 kg General: Conversant, No Apparent Distress HEENT: Atraumatic, Normocephaly, Mucus Membranes Moist Neck: No JVD, Normal carotid pulses Cardiac: Reg Rate and Rhythm, Normal S1 and S2, No Murmur Lungs: Normal Breath Sounds, No Wheeze, Rales, Rhonchi Neuro: Alert and responsive, No focal deficits noted Abdomen: Soft, Non-Tender Skin: Other (right femoral access site healing well. No bleeding, hematoma or ecchymosis noted.) Musculoskeletal: No Chest Wall Tenderness Extremities: No Clubbing, No Cyanosis, No Edema, Normal Pulses Results 04/21/17 07:42 04/21/17 07:42 Lab Results 04/20/17 04/20/17 04/21/17 14:50 14:50 07:42 WBC 2.9 L 3.0 L Hgb 8.2 L 7.9 L Hct 27.5 L 25.9 L Plt Count 316 272 Sodium 139 Potassium 3.4 L Chloride 108 H Carbon Dioxide 28 BUN 15 Creatinine 0.52 L Glucose 134 H Calcium 8.4 L 04/21/17 07:42 WBC Hgb Hct Plt Count Sodium 141 Potassium 3.8 Chloride 111 H Carbon Dioxide 25 BUN 14 Creatinine 0.60 Glucose 110 H Calcium 8.4 L Short CBC 04/21/17 04/20/17 Range/Units 07:42 14:50 WBC 3.0 L 2.9 L (4.3-11.1) K/mcL Hgb 7.9 L 8.2 L (11.5-15.4) g/dL Hct 25.9 L 27.5 L (35.3-44.9) % Plt Count 272 316 (140-400) K/mcL Neutrophils # 2.0 1.6 (1.6-8.9) K/mcL BMP 04/21/17 04/20/17 Range/Units 07:42 14:50 Sodium 141 139 (136-145) mEq/L Potassium 3.8 3.4 L (3.5-5.1) mEq/L Chloride 111 H 108 H (98-107) mEq/L Carbon Dioxide 25 28 (23-29) mEq/L BUN 14 15 (8-23) mg/dL Creatinine 0.60 0.52 L (0.60-1.20) mg/dL Glucose 110 H 134 H (70-105) mg/dL Calcium 8.4 L 8.4 L (8.6-10.3) mg/dL Impressions Abdomen/Pelvis CT 04/21/17 08:36 IMPRESSION: 1. No CT finding to account for patient's weight loss and anemia. 2. Sigmoid diverticulosis without evidence of diverticulitis. 3. Evidence of prior granulomatous disease with calcified granulomas in the liver and spleen. 4. Status post cholecystectomy and hysterectomy. D/ / 04/21/2017 09:32:46 Mark Patel MD / maria antonia Interpreting Provider: Mark Patel MD Active Medications Albuterol Sulfate (Proventil Neb) 2.5 mg IH TIDR [facility] PRN Reason: Protocol Stop: 10/20/17 15:01 Last Admin: 04/21/17 10:35 Dose: Not Given Amlodipine Besylate (Norvasc) 5 mg PO DAILY [facility] PRN Reason: Protocol Stop: 10/21/17 09:01 Last Admin: 04/21/17 08:37 Dose: Not Given Aspirin (Aspirin) 81 mg PO QAM [facility] Stop: 10/21/17 09:01 Last Admin: 04/21/17 08:01 Dose: 81 mg Citalopram Hydrobromide (Celexa) 20 mg PO DAILY [facility] Stop: 10/21/17 09:01 Last Admin: 04/21/17 08:00 Dose: 20 mg Clopidogrel Bisulfate (Plavix) 75 mg PO QAM [facility] Stop: 10/21/17 09:01 Last Admin: 04/21/17 08:01 Dose: 75 mg Gabapentin (Neurontin) 800 mg PO TID [facility] Stop: 10/20/17 15:01 Last Admin: 04/21/17 08:01 Dose: 800 mg Gemfibrozil (Lopid) 600 mg PO BIDAC [facility] Stop: 10/20/17 16:31 Last Admin: 04/21/17 08:01 Dose: 600 mg Isosorbide Mononitrate (Imdur) 60 mg PO BID [facility] Stop: 10/20/17 21:01 Last Admin: 04/21/17 08:00 Dose: 60 mg Levalbuterol HCl (Xopenex) 1 puff IH Q4H PRN PRN Reason: Shortness Of Breath Stop: 10/20/17 12:31 Levetiracetam (Keppra) 500 mg PO Q12HR [facility] Stop: 10/20/17 18:01 Last Admin: 04/21/17 05:26 Dose: 500 mg Metoprolol Succinate (Toprol Xl) 12.5 mg PO DAILY [facility] Stop: 10/21/17 09:01 Last Admin: 04/21/17 08:38 Dose: Not Given Nitroglycerin (Nitroglycerin) 0.4 mg SL Q5M PRN PRN Reason: Chest Pain Stop: 10/20/17 12:31 Omeprazole (Prilosec) 40 mg PO 0630 [facility] Stop: 10/21/17 06:31 Last Admin: 04/21/17 05:26 Dose: 40 mg Pharmacy Profile Note (Patient Taking Own Medication) 1 each PO QAM [facility] Stop: 10/21/17 09:01 Last Admin: 04/21/17 08:37 Dose: Not Given Ranolazine (Ranexa) 1,000 mg PO BID [facility] Stop: 10/20/17 21:01 Last Admin: 04/21/17 08:00 Dose: 1,000 mg Sumatriptan Succinate (Imitrex) 50 mg PO AD PRN PRN Reason: Migraine Headache Stop: 10/20/17 12:31 - Imaging and Cardiology Cardiac cath: report reviewed - EKG Interpretation EKG results cardiology: other (12 hr tele AVG HR 74, SR) Consult Discharge Plan - Plan Referrals: Ronnell,Kenneth Kim MD [Primary Care Provider] -
[2017-04-21] MEDS ORDERED: 0.9 % Sodium Chloride 250 ML ONE (13:29)
[2017-04-21] MEDS: Sucralfate 1 GM TABLET PO SCH ×2 (15:42→21:43)
--- NOTE | 2017-04-21 16:56 | General Surgery Consult Note ---
Date of Encounter: 04/21/17 Time of Encounter: 16:30 Assessment and Plan (1) Weight loss Current Visit: Yes Status: Acute patient with significant weight loss over last few month, would recommend colonoscopy to evaluate (2) Gastritis Current Visit: Yes Status: Acute continue on PPI therapy Qualifiers: Gastritis type: superficial Chronicity: unspecified Gastritis bleeding: without bleeding Qualified Code(s): K29.30 - Chronic superficial gastritis without bleeding (3) COPD (chronic obstructive pulmonary disease) Current Visit: No Status: Chronic Qualifiers: COPD type: chronic bronchitis Chronic bronchitis type: simple Qualified Code(s): J41.0 - Simple chronic bronchitis (4) CAD (coronary artery disease) Current Visit: No Status: Chronic 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 transplanted heart: [place] heart Associated angina: without angina Qualified Code(s): I25.10 - Atherosclerotic heart disease of [place] coronary artery without angina pectoris (5) Anemia Current Visit: Yes Status: Acute patient with anemia, constipation and weight loss recommend egd/colonoscpy but she would like to do it as outpatient she is unsure if she wants Dr Nieves, Dr Encinas or myself to do the procedures and states she will make a decision after speaking with her and therefore all three of our contact info is included for DC she must continue her aspirin and plavix Qualifiers: Anemia type: other cause Other causes of anemia: other cause, not classified Qualified Code(s): D64.89 - Other specified anemias History of Present Illness Consult date: 04/21/17 Reason for consult: endoscopy History of present illness: Patient is a 61 yo female who had a scheduled outpatient PTC stent placed in her RCA and was started on aspirin and plavix. She was found to be anemic with a Hb of 8.2 and a Hb on December 26 of this year was 11.2. Patient had an EGD in november of this year by Dr Nieves and diffuse gastritis, schatzki ring/dilation to 1.8 cm done , GAVE, and hiatal hernia. She has had a colonoscopy at least over 5 years ago but she is not exactly sure when. She has lost about 70 lbs over the last three months without trying. Over the last two months she has been having issues with constipation and small formed stools and will have several bm's a day without ever feeling like she is fully evacuated. fmh sister breast cancer, neice colon cancer, maternal grandfather colon cancer , paternal aunt metastatic colon cancer to liver Past Med Surg Social Fam HX - Past Medical History Source: patient Medical history: arthritis, asthma, CHF, COPD, coronary artery disease, hyperlipidemia, hypertension, myocardial infarction, osteoporosis, seizures, other Psychiatric history: anxiety, depression, PTSD - Past Surgical History Surgical History: angioplasty/stent (INGOT STRIPPER yesterday), appendectomy, cholecystectomy, coronary bypass (CABG), hysterectomy, LEOPOLDO/BSO - Social History Smoking Status: Former smoker Packs per day: Quit >10 years ago Smokeless Tobacco Status: No Alcohol use: rarely Drug use: none - Family History Brother Living Status: Hx Family Cardiac Disorders: Yes (CAD) Daughter Living Status: Still Living Father Adopted: No Living Status: Hx Family Cardiac Disorders: Yes Hx Family Respiratory Disorders: No Hx Family Cancer: No Hx Family GI Disorders: No Hx Family Endocrine Disorder: No Hx Family Neuromuscular Disorders: No Hx Family Neurologic Disorders: No Hx Family HEENT Disorders: No Hx Family Autoimmune Disorders: No Sister Living Status: Hx Family Cardiac Disorders: Yes (CAD) Hx Family Respiratory Disorders: Yes (copd (sister, smoker)) Hx Family Cancer: Yes (breast) Mother Living Status: Hx Family Cardiac Disorders: Yes Son Adopted: No Twin of Family Member: Yes, Identical Living Status: Hx Family Cardiac Disorders: Yes (father massive heart attack) Hx Family Respiratory Disorders: No Hx Family Cancer: Yes Hx Family GI Disorders: No Hx Family Endocrine Disorder: No Hx Family Neuromuscular Disorders: No Hx Family Neurologic Disorders: No Hx Family HEENT Disorders: Yes Hx Family Autoimmune Disorders: No Medications and Allergies Nitroglycerin 0.4 mg SL Q5M PRN 12/31/14 [History] Clopidogrel [Plavix] 75 mg PO QAM 12/08/15 [History] Esomeprazole Magnesium [Nexium] 40 mg PO QAM 12/08/15 [History] Ezetimibe [Zetia] 10 mg PO QAM 12/08/15 [History] Gabapentin [Neurontin] 800 mg PO TID 12/08/15 [History] Denosumab [Prolia (For Outpatient Infusion)] 60 mg SQ [id number] 12/27/15 [History ] Oxygen 4 l IH CONT 12/27/15 [History] Ubidecarenone [Co Q10] 100 mg PO BID 12/27/15 [History] Aspirin 81 mg PO QAM 02/01/16 [History] Gemfibrozil [Lopid] 600 mg PO BIDAC #60 tablet 02/02/16 [Rx] Albuterol Neb [Proventil Neb] 2.5 mg IH TID 06/30/16 [History] Ergocalciferol (VITAMIN D2) [Vitamin D2] 50,000 unit PO QWEEK 06/30/16 [History] Metoprolol XL (24 HR) Succ [Toprol Xl] 12.5 mg PO DAILY 06/30/16 [History] SUMAtriptan succinate [Imitrex] 50 mg PO AD PRN 11/20/16 [History] Tramadol HCl [Ultram] 50 - 100 mg PO Q6H PRN 11/20/16 [History] Ranolazine [Ranexa] 1,000 mg PO BID #60 tab 11/22/16 [Rx] levETIRAcetam [Keppra] 500 mg PO Q12HR tab 11/22/16 [Rx] Isosorbide MONOnitrate (24 HR) [Imdur] 60 mg PO BID 12/24/16 [History] Levalbuterol [Xopenex] 1 puff IH Q4H PRN 01/04/17 [History] Citalopram Hydrobromide [Citalopram HBr] 20 mg PO DAILY 04/20/17 [History] amLODIPine [Norvasc] 5 mg PO DAILY 04/20/17 [History] 3 Allergy/AdvReac Type Severity Reaction Status Date / Time Hydroxychloroquine Allergy Severe Swelling Verified 12/23/16 15:33 of Lip/Tongue/Throat epinephrine Allergy Seizure Verified 12/23/16 15:33 [From Epi E-Z Pen] iron AdvReac Abdominal Verified 12/23/16 15:33 Pain Review of Systems All systems PM: reviewed and no additional remarkable complaints except as stated All systems PM: A 10-system review of systems was performed and is negative for pertinent findings except as documented above in the HPI. General Surgery Exam Initial Vital Signs Temp Pulse Resp BP 97.5 F L 67 16 101/62 04/20/17 09:42 04/20/17 09:42 04/20/17 09:42 04/20/17 09:42 - General physical appearance well nourished, no distress, no pain - Eyes PERRL, normal ocular movement - ENT normal mucosa, normocephalic - Neck trachea midline - Respiratory normal expansion, normal respiratory effort - Cardiovascular Cardiovascular exam: Present: RRR - Abdomen Abdomen general surgery: Present: bowel sounds present, soft, non tender. Absent: distended, tender - Integumentary Integumentary general surgery: Present: warm and dry, no abnormal pigmentation - Neurologic Present: CN 2-12 grossly intact - Musculoskeletal Present: normal posture - Psychiatric Psychiatric general surgery: Present: A&Ox3, speech is normal Exam Initial Vital Signs Temp Pulse Resp BP 97.5 F L 67 16 101/62 04/20/17 09:42 04/20/17 09:42 04/20/17 09:42 04/20/17 09:42 Results - Labs 04/21/17 07:42 04/21/17 07:42 Short CBC 04/21/17 Range/Units 07:42 WBC 3.0 L (4.3-11.1) K/mcL Hgb 7.9 L (11.5-15.4) g/dL Hct 25.9 L (35.3-44.9) % Plt Count 272 (140-400) K/mcL Neutrophils # 2.0 (1.6-8.9) K/mcL BMP 04/21/17 Range/Units 07:42 Sodium 141 (136-145) mEq/L Potassium 3.8 (3.5-5.1) mEq/L Chloride 111 H (98-107) mEq/L Carbon Dioxide 25 (23-29) mEq/L BUN 14 (8-23) mg/dL Creatinine 0.60 (0.60-1.20) mg/dL Glucose 110 H (70-105) mg/dL Calcium 8.4 L (8.6-10.3) mg/dL Vital Signs Temp Pulse Resp BP Pulse Ox 04/21/17 16:25 98.0 F 78 16 119/74 98 04/21/17 16:17 14 98 04/21/17 13:52 98.1 F 76 14 109/71 98 04/21/17 13:37 97.9 F 77 14 111/72 97 04/21/17 11:58 98.0 F 75 18 120/75 96 04/21/17 08:03 98.1 F 72 14 95/62 98 04/21/17 04:02 98.0 F 78 16 110/67 92 04/21/17 00:03 18 97 04/20/17 23:42 98.0 F 75 16 92/58 99 04/20/17 19:07 97.8 F 72 16 106/62 98 Intake and Output 04/21/17 04/21/17 04/21/17 07:59 15:59 23:59 Intake Total 1000 / 1000 0 / 0 350 / 350 Output Total 0 / 0 Balance 1000 / 1000 0 / 0 350 / 350 Intake: IV Fluids 1000 / 1000 0.9 % Sodium Chloride 1,000 ML 1000 / 1000 @ 50 mls/hr IVC .Q20H [facility] Rx#: [id number] Oral 0 / 0 Blood Product 0 / 0 350 / 350 Rbcs Leuko Poor As-1 Unit 0 / 0 350 / 350 [id number] Output: Urine 0 / 0 Other: Weight 90.9 kg Blood Glucose* 98 Patient Weight 04/21/17 23:59 Weight 90.9 kg Consult Discharge Plan - Plan Referrals: Kenneth Reynaga MD [Primary Care Provider] - Micha Nieves MD [Partnered Physician] - Lukas Encinas MD [Non-Partnered Physician] - Zainab Calabrese MD [Partnered Physician] - (patient states must talk with her to decide which physician she would like to do her outpatient egd/ colonoscopy so I have included all of our contact information)
[2017-04-21] MEDS: Pantoprazole 40 MG VIAL IVP SCH (18:32)
[2017-04-22 02:52] LABS: Basophils % 0.5 %; Eosinophils # 0.1 K/mcL (0.0-0.6); Eosinophils % 1.7 %; Hematocrit 27.6 % (35.3-44.9); Hemoglobin 8.5 g/dL (11.5-15.4); Immature Granulocytes % 0.2 % (0-4); Lymphocytes % 24.7 %; Mean Corpuscular HGB Conc 30.8 g/dL (31.6-35.5); Mean Corpuscular Hemoglobin 25.4 pg (28.0-33.3); Mean Corpuscular Volume 82.6 fL (83.0-100.0); Mean Platelet Volume 9.3 fL (9.4-12.4); Monocytes # 0.5 K/mcL (0.0-1.3); Monocytes % 11.8 %; Neutrophils # 2.6 K/mcL (1.6-8.9); Platelet Count 306 K/mcL (140-400); Red Blood Count 3.34 M/mcL (3.82-4.97); Red Cell Distribution Width 15.5 % (11.5-14.5); Segmented Neutrophils % 61.1 %
[2017-04-22 03:09] LABS: BUN/Creatinine Ratio 30 (6-26); Blood Urea Nitrogen 15 mg/dL (8-23); Calcium 8.6 mg/dL (8.6-10.3); Carbon Dioxide 26 mEq/L (23-29); Chloride 112 mEq/L (98-107); Glucose 100 mg/dL (70-105); Osmolality,Calculated 297 (280-300); Potassium 3.8 mEq/L (3.5-5.1); Sodium 143 mEq/L (136-145); eGFR For African Americans > 60 (> 60); eGFR For Non-African Americans > 60 (> 60)
[2017-04-22] MEDS: Albuterol 2.5 MG/3 ML NEBULIZER IH SCH ×4 (03:40→23:47)
[2017-04-22] MEDS: levETIRAcetam 250 MG TABLET PO SCH ×2 (06:15→17:53)
[2017-04-22] MEDS: Pantoprazole 40 MG VIAL IVP SCH ×2 (06:15→17:53)
[2017-04-22] MEDS ORDERED: Polyethylene Glycol 3350 255 GM POWDER PO ONE (10:27)
--- NOTE | 2017-04-22 10:31 | General Surgery Progress Note ---
Date of Encounter: 04/22/17 Time of Encounter: 10:29 - Assessment and Plan (1) History of melena Current Visit: No Status: Resolved Will start bowel prep today and tentatively plan for an EGD and colonoscopy tomorrow if she is clear. (2) Weight loss Current Visit: Yes Status: Acute See above. Subjective Patient reports: other (Patient wishes to proceed with an EGD and colonoscopy while an inpatient. Does admit to some right sided discomfort that started today.) Objective Vital Signs - Last 8 Hours Temp Pulse Resp BP Pulse Ox 04/22/17 05:10 98.2 F 72 15 101/60 97 Intake and Output 04/21/17 04/22/17 04/22/17 23:59 07:59 15:59 Intake Total 350 / 350 Balance 350 / 350 Intake: Oral 0 / 0 Blood Product 350 / 350 Rbcs Leuko Poor As-1 Unit 350 / 350 [id number] Other: # Voids 0 0 Weight 89.1 kg Blood Glucose* 97 Patient Weight 04/22/17 23:59 Weight 89.1 kg - General physical appearance well nourished, no distress - Abdomen Abdomen: Present: soft, tender (Mild right upper and lower abdominal tenderness on exam.) - Labs 04/22/17 02:45 04/22/17 02:45 Diabetes panel 04/22/17 Range/Units 02:45 Sodium 143 (136-145) mEq/L Potassium 3.8 (3.5-5.1) mEq/L Chloride 112 H (98-107) mEq/L Carbon Dioxide 26 (23-29) mEq/L BUN 15 (8-23) mg/dL Creatinine 0.50 L (0.60-1.20) mg/dL Glucose 100 (70-105) mg/dL Calcium 8.6 (8.6-10.3) mg/dL Calcium panel 04/22/17 Range/Units 02:45 Calcium 8.6 (8.6-10.3) mg/dL Pituitary panel 04/22/17 Range/Units 02:45 Sodium 143 (136-145) mEq/L Potassium 3.8 (3.5-5.1) mEq/L Chloride 112 H (98-107) mEq/L Carbon Dioxide 26 (23-29) mEq/L BUN 15 (8-23) mg/dL Creatinine 0.50 L (0.60-1.20) mg/dL Glucose 100 (70-105) mg/dL Calcium 8.6 (8.6-10.3) mg/dL Adrenal panel 04/22/17 Range/Units 02:45 Sodium 143 (136-145) mEq/L Potassium 3.8 (3.5-5.1) mEq/L Chloride 112 H (98-107) mEq/L Carbon Dioxide 26 (23-29) mEq/L BUN 15 (8-23) mg/dL Creatinine 0.50 L (0.60-1.20) mg/dL Glucose 100 (70-105) mg/dL Calcium 8.6 (8.6-10.3) mg/dL Consult Discharge Plan - Plan Referrals: Kenneth Reynaga MD [Primary Care Provider] - Zainab Calabrese MD [Partnered Physician] - (patient states must talk with her to decide which physician she would like to do her outpatient egd/ colonoscopy so I have included all of our contact information) Lukas Encinas MD [Non-Partnered Physician] - Micha Nieves MD [Partnered Physician] -
[2017-04-22] MEDS: Metoprolol XL (24 HR) Succ 25 MG TAB.ER.24H PO SCH (10:42)
[2017-04-22] MEDS: Ranolazine 500 MG TAB.ER.12H PO SCH ×2 (10:43→20:51)
[2017-04-22] MEDS: Isosorbide MONOnitrate (24 HR) 60 MG TAB.ER.24H PO SCH ×2 (10:43→20:52)
[2017-04-22] MEDS: Gabapentin 400 MG CAPSULE PO SCH ×3 (10:43→20:51)
[2017-04-22] MEDS: amLODIPine 5 MG TABLET PO SCH (10:44)
[2017-04-22] MEDS: Aspirin 81 MG TAB.CHEW PO SCH (10:44)
[2017-04-22] MEDS: Sucralfate 1 GM TABLET PO SCH ×4 (10:44→20:52)
--- NOTE | 2017-04-22 11:11 | Cardiology Progress Note ---
Date of Encounter: 04/22/17 Time of Encounter: 11:08 Assessment and Plan (1) CAD (coronary artery disease) Current Visit: No Status: Chronic Hx of CABG and PCI. S/P C 04/21- Severe atherosclerotic coronary artery disease, The left ventricle is normal and has normal contractility EF 60%, Patient had successful PTCA/Drug-Eluting Stent placement in the proximal RCA, S/P CABG 2 of 3 patent bypass grafts, SVG to the OM with moderate Non obstructive CAD. EF preserved on limited echo 11/2016. DAPT (ASA and Plavix) uninterrupted x 1 year. Pt verbalizes understanding. Continue BB. Intolerant to statins. Acute anemia--HGB 7.9 yesterday. Was 8.2 04/21, 11.2 12/26. Pt denies any sign of active bleeding. Consulted surgery. Transfused 1 unit PRBC yesterday, HGB 8.5 today. Reports 78 lb weight loss over past [address] ABD/Pelvis without contrast obtained. No evidence of bleeding. Right femoral access site healing well. No bleeding, hematoma or ecchymosis noted. As below, keep as inpt for EGD/colonoscopy. Qualifiers: Coronary Disease-Associated Artery/Lesion type: unspecified vessel or lesion type [place] vs. transplanted heart: [place] heart Associated angina: without angina Qualified Code(s): I25.10 - Atherosclerotic heart disease of [place] coronary artery without angina pectoris (2) Anemia Current Visit: Yes Status: Acute HGB 7.9 yesterday, 8.2 04/21, 11.2 11/2016. HGB 8.5 today s/p 1 PRBC transfusion. Hemoccult positive stool 11/2016. Pt underwent EGD 12/2016--characteristics of GAVE--cold biopsy, esophageal dilation. No recent colonoscopy Keep HGB >8. Called and discussed with surgery/Dr. Calabrese and Dr. Gonzalez. Consult placed. Pt initially wanted outpt scopes, but now would like to stay inpt. Tentative plan is for EGD/Colonoscopy tomorrow. Will be unable to stop ASA and Plavix given PCI yesterday. Qualifiers: Anemia type: other cause Other causes of anemia: other cause, not classified Qualified Code(s): D64.89 - Other specified anemias Discussion w patient/family: The assessment and plan as outlined above was discussed with the patient and/or family members who expressed understanding and agreement. All questions were answered. Thank you for involving us in the care of your patient. Please call with any questions. I will discuss all the above with Dr. Richmond and make changes as necessary. Subjective Principal diagnosis: CAD Interval history: Pt reports right sided abdominal pain that started this AM. Reports one episode of chest pain yesterday, no current chest pain since 1 PRBC transfusion. HGB 8.5 today. Denies dyspnea. Seen by surgery yesterday, pt initially wanted to do EGD and colonoscopy as outpt, but has now changed her mind, wants to stay and have as inpt. Objective Vital Signs Temp Pulse Resp BP Pulse Ox 04/22/17 05:10 98.2 F 72 15 101/60 97 04/22/17 00:46 98.2 F 74 16 104/67 97 04/21/17 21:14 97.4 F L 80 17 118/73 97 04/21/17 17:02 98.2 F 73 18 110/69 98 04/21/17 16:25 98.0 F 78 16 119/74 98 04/21/17 16:17 14 98 04/21/17 13:52 98.1 F 76 14 109/71 98 04/21/17 13:37 97.9 F 77 14 111/72 97 04/21/17 11:58 98.0 F 75 18 120/75 96 Intake and Output 04/21/17 04/22/17 04/22/17 23:59 07:59 15:59 Intake Total 350 / 350 120 / 120 Balance 350 / 350 120 / 120 Intake: Oral 0 / 0 120 / 120 Blood Product 350 / 350 Rbcs Leuko Poor As-1 Unit 350 / 350 [id number] Other: Meal Breakfast Percent of Meal Consumed 100% # Voids 0 0 Weight 89.1 kg Blood Glucose* 97 Patient Weight 04/22/17 23:59 Weight 89.1 kg General: Conversant, No Apparent Distress HEENT: Atraumatic, Normocephaly, Mucus Membranes Moist Neck: No JVD, Normal carotid pulses Cardiac: Reg Rate and Rhythm, Normal S1 and S2, No Murmur Lungs: Normal Breath Sounds, No Wheeze, Rales, Rhonchi Neuro: Alert and responsive, No focal deficits noted Abdomen: Soft, Non-Tender Skin: Other (right femoral access site healing well. No bleeding, hematoma or ecchymosis noted.) Musculoskeletal: No Chest Wall Tenderness Extremities: No Clubbing, No Cyanosis, No Edema, Normal Pulses Results 04/22/17 02:45 04/22/17 02:45 Lab Results 04/22/17 04/22/17 02:45 02:45 WBC 4.2 L Hgb 8.5 L Hct 27.6 L Plt Count 306 Sodium 143 Potassium 3.8 Chloride 112 H Carbon Dioxide 26 BUN 15 Creatinine 0.50 L Glucose 100 Calcium 8.6 Short CBC 04/22/17 Range/Units 02:45 WBC 4.2 L (4.3-11.1) K/mcL Hgb 8.5 L (11.5-15.4) g/dL Hct 27.6 L (35.3-44.9) % Plt Count 306 (140-400) K/mcL Neutrophils # 2.6 (1.6-8.9) K/mcL BMP 04/22/17 Range/Units 02:45 Sodium 143 (136-145) mEq/L Potassium 3.8 (3.5-5.1) mEq/L Chloride 112 H (98-107) mEq/L Carbon Dioxide 26 (23-29) mEq/L BUN 15 (8-23) mg/dL Creatinine 0.50 L (0.60-1.20) mg/dL Glucose 100 (70-105) mg/dL Calcium 8.6 (8.6-10.3) mg/dL Active Medications Albuterol Sulfate (Proventil Neb) 2.5 mg IH TIDR [facility] PRN Reason: Protocol Stop: 10/20/17 15:01 Last Admin: 04/22/17 07:32 Dose: 2.5 mg Amlodipine Besylate (Norvasc) 5 mg PO DAILY [facility] PRN Reason: Protocol Stop: 10/21/17 09:01 Last Admin: 04/22/17 10:44 Dose: 5 mg Aspirin (Aspirin) 81 mg PO QAM [facility] Stop: 10/21/17 09:01 Last Admin: 04/22/17 10:44 Dose: 81 mg Citalopram Hydrobromide (Celexa) 20 mg PO DAILY [facility] Stop: 10/21/17 09:01 Last Admin: 04/22/17 10:43 Dose: 20 mg Clopidogrel Bisulfate (Plavix) 75 mg PO QAM [facility] Stop: 10/21/17 09:01 Last Admin: 04/21/17 08:01 Dose: 75 mg Gabapentin (Neurontin) 800 mg PO TID [facility] Stop: 10/20/17 15:01 Last Admin: 04/22/17 10:43 Dose: 800 mg Gemfibrozil (Lopid) 600 mg PO BIDAC [facility] Stop: 10/20/17 16:31 Last Admin: 04/22/17 10:43 Dose: 600 mg Isosorbide Mononitrate (Imdur) 60 mg PO BID [facility] Stop: 10/20/17 21:01 Last Admin: 04/22/17 10:43 Dose: 60 mg Levalbuterol HCl (Xopenex) 1 puff IH Q4H PRN PRN Reason: Shortness Of Breath Stop: 10/20/17 12:31 Levetiracetam (Keppra) 500 mg PO Q12HR [facility] Stop: 10/20/17 18:01 Last Admin: 04/22/17 06:15 Dose: 500 mg Metoprolol Succinate (Toprol Xl) 12.5 mg PO DAILY [facility] Stop: 10/21/17 09:01 Last Admin: 04/22/17 10:42 Dose: 12.5 mg Nitroglycerin (Nitroglycerin) 0.4 mg SL Q5M PRN PRN Reason: Chest Pain Stop: 10/20/17 12:31 Last Admin: 04/21/17 11:59 Dose: 0.4 mg Pantoprazole Sodium (Protonix) 40 mg IVP Q12HR [facility] Stop: 10/21/17 18:01 Last Admin: 04/22/17 06:15 Dose: 40 mg Pharmacy Profile Note (Patient Taking Own Medication) 1 each PO QAM [facility] Stop: 10/21/17 09:01 Last Admin: 04/22/17 10:45 Dose: Not Given Ranolazine (Ranexa) 1,000 mg PO BID [facility] Stop: 10/20/17 21:01 Last Admin: 04/22/17 10:43 Dose: 1,000 mg Sucralfate (Carafate) 1 gm PO QIDAC [facility] Stop: 10/21/17 16:31 Last Admin: 04/22/17 10:44 Dose: 1 gm Sumatriptan Succinate (Imitrex) 50 mg PO AD PRN PRN Reason: Migraine Headache Stop: 10/20/17 12:31 - Imaging and Cardiology Echo: report reviewed Cardiac cath: report reviewed Consult Discharge Plan - Plan Referrals: Kenneth Reynaga MD [Primary Care Provider] - Zainab Calabrese MD [Partnered Physician] - (patient states must talk with her to decide which physician she would like to do her outpatient egd/ colonoscopy so I have included all of our contact information) Lukas Encinas MD [Non-Partnered Physician] - Micha Nieves MD [Partnered Physician] -
[2017-04-23 04:51] LABS: Basophils % 0.5 %; Eosinophils # 0.1 K/mcL (0.0-0.6); Eosinophils % 3.2 %; Hemoglobin 8.6 g/dL (11.5-15.4); Lymphocytes % 26.8 %; Mean Corpuscular HGB Conc 30.7 g/dL (31.6-35.5); Mean Corpuscular Hemoglobin 25.2 pg (28.0-33.3); Mean Corpuscular Volume 82.1 fL (83.0-100.0); Mean Platelet Volume 9.6 fL (9.4-12.4); Monocytes # 0.5 K/mcL (0.0-1.3); Monocytes % 12.6 %; Neutrophils # 2.1 K/mcL (1.6-8.9); Platelet Count 307 K/mcL (140-400); Red Blood Count 3.41 M/mcL (3.82-4.97); Red Cell Distribution Width 15.8 % (11.5-14.5); Segmented Neutrophils % 56.9 %
[2017-04-23 05:08] LABS: BUN/Creatinine Ratio 17 (6-26); Blood Urea Nitrogen 9 mg/dL (8-23); Calcium 8.8 mg/dL (8.6-10.3); Carbon Dioxide 27 mEq/L (23-29); Chloride 111 mEq/L (98-107); Glucose 99 mg/dL (70-105); Osmolality,Calculated 295 (280-300); Potassium 3.6 mEq/L (3.5-5.1); Sodium 143 mEq/L (136-145); eGFR For African Americans > 60 (> 60); eGFR For Non-African Americans > 60 (> 60)
[2017-04-23] MEDS: levETIRAcetam 250 MG TABLET PO SCH ×3 (05:43→17:22)
[2017-04-23] MEDS: Pantoprazole 40 MG VIAL IVP SCH ×2 (06:01→17:21)
--- NOTE | 2017-04-23 07:47 | Cardiology Progress Note ---
Date of Encounter: 04/23/17 Time of Encounter: 07:45 Assessment and Plan (1) CAD (coronary artery disease) Current Visit: No Status: Chronic Per Cardiology: Hx of CABG and PCI. S/P [facility] 04/21- PTCA/ZORA proximal RCA, hx CABG with 2 of 3 patent bypass grafts, SVG to the OM with moderate Non obstructive CAD. DAPT ( ASA and Plavix) uninterrupted x 1 year. On Imdur, Ranexa, BB. Intolerant to statins. SBP 100's-- will dc Norvasc, decrease dose of Imdur. Qualifiers: Coronary Disease-Associated Artery/Lesion type: unspecified vessel or lesion type [place] vs. transplanted heart: [place] heart Associated angina: without angina Qualified Code(s): I25.10 - Atherosclerotic heart disease of [place] coronary artery without angina pectoris (2) Anemia Current Visit: Yes Status: Acute Per Cardiology: Acute anemia. CT ABD/Pelvis without contrast-- no evidence of bleeding. s/p 1 PRBC transfusion. Hgb 8.6 today. Reports black tarry stool during night. Hemoccult positive stool 11/2016. Pt underwent EGD 12/2016--characteristics of GAVE--cold biopsy, esophageal dilation. No recent colonoscopy Keep HGB >8. EGD/Colonoscopy today. Will be unable to stop ASA and Plavix given PCI few days ago. Qualifiers: Anemia type: other cause Other causes of anemia: other cause, not classified Qualified Code(s): D64.89 - Other specified anemias Discussion w patient/family: The assessment and plan as outlined above was discussed with the patient who expressed understanding and agreement. All questions were answered. Thank you for involving us in the care of your patient. Please call with any questions. Subjective Principal diagnosis: CAD Interval history: Patient denies any chest pain, shortness of breath, palpitations. Denies any concerns from her right groin site. Reports black tarry stool this morning. Objective Vital Signs, Last 4 Hours Temp Pulse Resp BP Pulse Ox 04/23/17 04:13 98.1 F 68 16 102/59 99 General: Conversant, No Apparent Distress HEENT: Atraumatic, Normocephaly, Mucus Membranes Moist Neck: No JVD, Normal carotid pulses Cardiac: Reg Rate and Rhythm, Normal S1 and S2, No Murmur Lungs: Normal Breath Sounds, No Wheeze, Rales, Rhonchi Neuro: Alert and responsive, No focal deficits noted Abdomen: Soft, Non-Tender Skin: No rashes noted on visualized skin, Other (Right groin site dry and intact , very mild ecchymosis, no hematoma, no bleeding) Musculoskeletal: No Chest Wall Tenderness Extremities: No Clubbing, No Cyanosis, No Edema, Normal Pulses Results 04/23/17 04:34 04/23/17 04:34 Lab Results Laboratory Tests 04/20/17 04/23/17 14:50 04:34 Hgb 8.2 L 8.6 L Hct 27.5 L 28.0 L ITS Impressions Abdomen/Pelvis CT 04/21/17 08:36 IMPRESSION: 1. No CT finding to account for patient's weight loss and anemia. 2. Sigmoid diverticulosis without evidence of diverticulitis. 3. Evidence of prior granulomatous disease with calcified granulomas in the liver and spleen. 4. Status post cholecystectomy and hysterectomy. D/ / 04/21/2017 09:32:46 Mark Patel MD / [facility] Interpreting Provider: Mark Patel MD Active Medications Albuterol Sulfate (Proventil Neb) 2.5 mg IH TIDR [facility] PRN Reason: Protocol Stop: 10/20/17 15:01 Last Admin: 04/22/17 23:47 Dose: 2.5 mg Amlodipine Besylate (Norvasc) 5 mg PO DAILY [facility] PRN Reason: Protocol Stop: 10/21/17 09:01 Last Admin: 04/22/17 10:44 Dose: 5 mg Aspirin (Aspirin) 81 mg PO QAM [facility] Stop: 10/21/17 09:01 Last Admin: 04/22/17 10:44 Dose: 81 mg Citalopram Hydrobromide (Celexa) 20 mg PO DAILY [facility] Stop: 10/21/17 09:01 Last Admin: 04/22/17 10:43 Dose: 20 mg Clopidogrel Bisulfate (Plavix) 75 mg PO QAM [facility] Stop: 10/21/17 09:01 Last Admin: 04/22/17 13:27 Dose: 75 mg Gabapentin (Neurontin) 800 mg PO TID [facility] Stop: 10/20/17 15:01 Last Admin: 04/22/17 20:51 Dose: 800 mg Gemfibrozil (Lopid) 600 mg PO BIDAC [facility] Stop: 10/20/17 16:31 Last Admin: 04/22/17 17:53 Dose: 600 mg Isosorbide Mononitrate (Imdur) 60 mg PO BID [facility] Stop: 10/20/17 21:01 Last Admin: 04/22/17 20:52 Dose: 60 mg Levalbuterol HCl (Xopenex) 1 puff IH Q4H PRN PRN Reason: Shortness Of Breath Stop: 10/20/17 12:31 Levetiracetam (Keppra) 500 mg PO Q12HR [facility] Stop: 10/20/17 18:01 Last Admin: 04/23/17 05:43 Dose: Not Given Metoprolol Succinate (Toprol Xl) 12.5 mg PO DAILY [facility] Stop: 10/21/17 09:01 Last Admin: 04/22/17 10:42 Dose: 12.5 mg Nitroglycerin (Nitroglycerin) 0.4 mg SL Q5M PRN PRN Reason: Chest Pain Stop: 10/20/17 12:31 Last Admin: 04/21/17 11:59 Dose: 0.4 mg Pantoprazole Sodium (Protonix) 40 mg IVP Q12HR [facility] Stop: 10/21/17 18:01 Last Admin: 04/23/17 06:01 Dose: 40 mg Pharmacy Profile Note (Patient Taking Own Medication) 1 each PO QAM [facility] Stop: 10/21/17 09:01 Last Admin: 04/22/17 10:45 Dose: Not Given Ranolazine (Ranexa) 1,000 mg PO BID [facility] Stop: 10/20/17 21:01 Last Admin: 04/22/17 20:51 Dose: 1,000 mg Sucralfate (Carafate) 1 gm PO QIDAC [facility] Stop: 10/21/17 16:31 Last Admin: 04/22/17 20:52 Dose: 1 gm Sumatriptan Succinate (Imitrex) 50 mg PO AD PRN PRN Reason: Migraine Headache Stop: 10/20/17 12:31 - Imaging and Cardiology Cardiac cath: report reviewed Consult Discharge Plan - Plan Referrals: Kenneth Reynaga MD [Primary Care Provider] - Zainab Calabrese MD [Partnered Physician] - (patient states must talk with her to decide which physician she would like to do her outpatient egd/ colonoscopy so I have included all of our contact information) Lukas Encinas MD [Non-Partnered Physician] - Micha Nieves MD [Partnered Physician] -
[2017-04-23] MEDS: Sucralfate 1 GM TABLET PO SCH ×4 (08:17→22:26)
[2017-04-23] MEDS: Gabapentin 400 MG CAPSULE PO SCH ×3 (08:17→22:26)
[2017-04-23] MEDS: Aspirin 81 MG TAB.CHEW PO SCH (08:17)
[2017-04-23] MEDS: Ranolazine 500 MG TAB.ER.12H PO SCH ×2 (08:17→22:26)
[2017-04-23] MEDS: Metoprolol XL (24 HR) Succ 25 MG TAB.ER.24H PO SCH (08:17)
--- NOTE | 2017-04-23 08:48 | Anesthesia Evaluation PreOp ---
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 Other Medical History: Bleeding, Diabetes Type II Alcohol Use: rarely Drug use: none Medications and Allergies Nitroglycerin 0.4 mg SL Q5M PRN 12/31/14 [History] Clopidogrel [Plavix] 75 mg PO QAM 12/08/15 [History] Esomeprazole Magnesium [Nexium] 40 mg PO QAM 12/08/15 [History] Ezetimibe [Zetia] 10 mg PO QAM 12/08/15 [History] Gabapentin [Neurontin] 800 mg PO TID 12/08/15 [History] Denosumab [Prolia (For Outpatient Infusion)] 60 mg SQ [id number] 12/27/15 [History ] Oxygen 4 l IH CONT 12/27/15 [History] Ubidecarenone [Co Q10] 100 mg PO BID 12/27/15 [History] Aspirin 81 mg PO QAM 02/01/16 [History] Gemfibrozil [Lopid] 600 mg PO BIDAC #60 tablet 02/02/16 [Rx] Albuterol Neb [Proventil Neb] 2.5 mg IH TID 06/30/16 [History] Ergocalciferol (VITAMIN D2) [Vitamin D2] 50,000 unit PO QWEEK 06/30/16 [History] Metoprolol XL (24 HR) Succ [Toprol Xl] 12.5 mg PO DAILY 06/30/16 [History] SUMAtriptan succinate [Imitrex] 50 mg PO AD PRN 11/20/16 [History] Tramadol HCl [Ultram] 50 - 100 mg PO Q6H PRN 11/20/16 [History] Ranolazine [Ranexa] 1,000 mg PO BID #60 tab 11/22/16 [Rx] levETIRAcetam [Keppra] 500 mg PO Q12HR tab 11/22/16 [Rx] Isosorbide MONOnitrate (24 HR) [Imdur] 60 mg PO BID 12/24/16 [History] Levalbuterol [Xopenex] 1 puff IH Q4H PRN 01/04/17 [History] Citalopram Hydrobromide [Citalopram HBr] 20 mg PO DAILY 04/20/17 [History] amLODIPine [Norvasc] 5 mg PO DAILY 04/20/17 [History] 3 Allergy/AdvReac Type Severity Reaction Status Date / Time Hydroxychloroquine Allergy Severe Swelling Verified 12/23/16 15:33 of Lip/Tongue/Throat epinephrine Allergy Seizure Verified 12/23/16 15:33 [From Epi E-Z Pen] iron AdvReac Abdominal Verified 12/23/16 15:33 Pain - Meds/Allergy Pre-op Review Medications Reviewed: Yes Allergies Reviewed: Yes Beta Blockers on Current Med List: Yes If Beta Blockers taken, Date/Time (Last Dose taken): 04-23-17 metoprolol 8:17 Anesthesia Results - Labs 04/23/17 04:34 04/23/17 04:34 - Imaging EKG: report reviewed, image reviewed (SINUS RHYTHM LOW QRS VOLTAGE IN PRECORDIAL LEADS ST DEVIATION AND MODERATE T-WAVE ABNORMALITY, CONSIDER ANTERIOR ISCHEMIA) Additional studies: 04-20-17 cardiac cath: Procedures Performed: LEFT HEART CATH W/ GRAFTS Stent w/ PTCA Single Major Vessel Indications: Coronary Artery Disease Impressions: Severe atherosclerotic coronary artery disease. The left ventricle is normal and has normal contractility EF 60% Patient had successful PTCA/Drug-Eluting Stent placement in the proximal RCA. S/P CABG 2 of 3 patent bypass grafts. SVG to the OM with moderate Non obstructive CAD Recommendations: Optimal medical therapy of patient's disease. Aggressive risk factor modification. Patient being referred for cardiac rehab. Patient received PCI of the RCA proximally, with PTCA of the RPDA. Non obstructive CAD in the mid RCA and SVG to the OM which if patient contiues to have pain may need further evaluation Limited TTE: Impressions: LVEF 60-65%. Normal LV chamber size and function. Mild concentric left ventricular hypertrophy. Atypical septal motion consistent with post-operative status. TTE: Indications: Pulmonary hypertension Impressions: LVEF 60-65%. Normal LV chamber size, wall thickness and function. Mild left ventricular diastolic dysfunction. Normal right ventricular structure and function. Mild-moderate aortic regurgitation. No evidence of pulmonary hypertension. RVSP not well obtained due to poor TR jet and could be underestimated. Anesthesia Exam Last Vital Signs Temp 98.2 F 04/23/17 07:42 Pulse 69 04/23/17 07:42 Resp 17 04/23/17 07:42 BP 100/65 04/23/17 07:42 Pulse Ox 100 04/23/17 08:08 Weight: 89 kg - HEENT Pupil (Motor): Pupils equal, EOMI Mallampati: III Teeth: Missing, Poor dentition Oral Opening: Greater than 3 - [employer]IST LOC: Oriented - Cardiac Rhythm: Regular Murmur: None - Pulmonary Breath Sounds: bilateral Clear Respiratory Effort: Symmetrical Anesthesia Assess/Plan ASA Score: 4 (Recent ZORA to RCA (3 days ago), hx [place], hx CHF, COPD, BELEN, hx seizures, DM 2) Modified [place] Scale for Level of Consciousness: Cooperative, oriented, and tranquil Anesthetic Plan: MAC Monitoring Plan: Standard Monitors Recovery Plan: PACU
[2017-04-23] MEDS ORDERED: Isosorbide MONOnitrate (24 HR) 30 MG TAB.ER.24H PO SCH ×2 (09:00→11:00)
[2017-04-23] MEDS ORDERED: Lidocaine -MPF 2% 2 ML VIAL ONE (09:02)
[2017-04-23] MEDS ORDERED: Propofol 500 MG/50 ML INFUS..BTL ONE (09:02)
[2017-04-23] MEDS ORDERED: *HR* Propofol 200 MG/20 ML VIAL IVP ONE (09:03)
[2017-04-23] MEDS ORDERED: *HR* Phenylephrine 10 MG/ML VIAL ONE (10:02)
--- NOTE | 2017-04-23 10:22 | Event Note ---
Date of Encounter: 04/23/17 Time of Encounter: 10:21 EGD and colonoscopy completed. Erythema noted in the antrum without ulceration. Mild oozing noted. Biopsy obtained and hot forceps were used to cauterize the bleeding with success. No masses. Colonoscopy showed small sized hemorrhoids. No bleeding. No polyps. Recommend full liquids for lunch, then advance to soft foods. Await path. Continue with protonix and carafate. Will follow from a distance. Thank you.
[2017-04-23] MEDS ORDERED: Nitroglycerin 0.4 MG TAB.SUBL SL PRN (10:27)
[2017-04-23] MEDS ORDERED: SUMAtriptan succinate 50 MG TABLET PO PRN (10:27)
[2017-04-23] MEDS ORDERED: Levalbuterol 1 PUFF INHALER IH PRN (10:27)
--- NOTE | 2017-04-23 10:32 | Anesthesia Evaluation Post Op ---
Date of Encounter: 04/23/17 Time of Encounter: 10:32 - Vital Signs Vital Signs: Last Vital Signs Temp 98.3 F 04/23/17 09:39 Pulse 69 04/23/17 07:42 Resp 18 04/23/17 09:39 BP 112/59 04/23/17 09:39 Pulse Ox 100 04/23/17 09:39 - Lungs Lungs: Clear Ascult./Percussion - Airway Airway: Non-obstructed - Cardiovascular Regular Rate - Mental Status Mental Status: Alert & Oriented, Answers Appropriately - Pain Pain Scale: 2 - Nausea Vomiting Nausea Vomiting: Not Present - Hydration Hydration: NPO - Discharge PostOp Status: Transfer Patient to floor
[2017-04-23] MEDS: Albuterol 2.5 MG/3 ML NEBULIZER IH SCH ×2 (10:38→18:50)
[2017-04-24] MEDS: Albuterol 2.5 MG/3 ML NEBULIZER IH SCH ×2 (03:50→10:45)
[2017-04-24] MEDS: levETIRAcetam 250 MG TABLET PO SCH (06:17)
[2017-04-24] MEDS: Pantoprazole 40 MG VIAL IVP SCH (06:17)
[2017-04-24 07:45] VITALS: BP 97/62
--- NOTE | 2017-04-24 08:15 | Cardiology Progress Note ---
Date of Encounter: 04/24/17 Time of Encounter: 08:15 Assessment and Plan (1) CAD (coronary artery disease) Current Visit: No Status: Chronic Per Cardiology: Hx of CABG and PCI. S/P [facility] 04/21- PTCA/ZORA proximal RCA, hx CABG with 2 of 3 patent bypass grafts, SVG to the OM with moderate Non obstructive CAD. DAPT ( ASA and Plavix) uninterrupted x 1 year. On Ranexa, BB. Intolerant to statins. SBP 90-100's-- will dc Imdur. Hold BB for SBP less than 100mmHg. CP free. Qualifiers: Coronary Disease-Associated Artery/Lesion type: unspecified vessel or lesion type [place] vs. transplanted heart: [place] heart Associated angina: without angina Qualified Code(s): I25.10 - Atherosclerotic heart disease of [place] coronary artery without angina pectoris (2) Anemia Current Visit: No Status: Acute Per Cardiology: Acute anemia. CT ABD/Pelvis without contrast-- no evidence of bleeding. s/p 1 PRBC transfusion. S/p EGD and Cscope-- results noted. Unable to stop ASA and Plavix given PCI few days ago. CBC pending. Possible DC today. Qualifiers: Anemia type: other cause Other causes of anemia: other cause, not classified Qualified Code(s): D64.89 - Other specified anemias Discussion w patient/family: The assessment and plan as outlined above was discussed with the patient who expressed understanding and agreement. All questions were answered. Thank you for involving us in the care of your patient. Please call with any questions. Subjective Principal diagnosis: CAD Interval history: Denies any chest pain, short of breath, palpitations. Denies any further active bleeding or blood loss. "I want to go home." Objective Vital Signs, Last 4 Hours Temp Pulse Resp BP Pulse Ox 04/24/17 07:38 98.4 F 74 16 97/62 94 General: Conversant, No Apparent Distress HEENT: Atraumatic, Normocephaly, Mucus Membranes Moist Neck: No JVD, Normal carotid pulses Cardiac: Reg Rate and Rhythm, Normal S1 and S2, No Murmur Lungs: Normal Breath Sounds, No Wheeze, Rales, Rhonchi Neuro: Alert and responsive, No focal deficits noted Abdomen: Soft, Non-Tender Skin: No rashes noted on visualized skin Musculoskeletal: No Chest Wall Tenderness Extremities: No Clubbing, No Cyanosis, No Edema, Normal Pulses Results 04/24/17 08:27 04/23/17 04:34 Laboratory Tests 04/23/17 04:34 Hgb 8.6 L Hct 28.0 L Active Medications Albuterol Sulfate (Proventil Neb) 2.5 mg IH TIDR [facility] PRN Reason: Protocol Stop: 10/20/17 15:01 Last Admin: 04/24/17 03:50 Dose: Not Given Aspirin (Aspirin) 81 mg PO QAM [facility] Stop: 10/21/17 09:01 Citalopram Hydrobromide (Celexa) 20 mg PO DAILY [facility] Stop: 10/21/17 09:01 Clopidogrel Bisulfate (Plavix) 75 mg PO QAM [facility] Stop: 10/21/17 09:01 Gabapentin (Neurontin) 800 mg PO TID [facility] Stop: 10/20/17 15:01 Last Admin: 04/23/17 22:26 Dose: 800 mg Gemfibrozil (Lopid) 600 mg PO BIDAC [facility] Stop: 10/20/17 16:31 Last Admin: 04/23/17 17:21 Dose: 600 mg Levalbuterol HCl (Xopenex) 1 puff IH Q4H PRN PRN Reason: Shortness Of Breath Stop: 10/20/17 12:31 Levetiracetam (Keppra) 500 mg PO Q12HR [facility] Stop: 10/20/17 18:01 Last Admin: 04/24/17 06:17 Dose: 500 mg Metoprolol Succinate (Toprol Xl) 12.5 mg PO DAILY [facility] Stop: 10/21/17 09:01 Nitroglycerin (Nitroglycerin) 0.4 mg SL Q5M PRN PRN Reason: Chest Pain Stop: 10/20/17 12:31 Pantoprazole Sodium (Protonix) 40 mg IVP Q12HR [facility] Stop: 10/21/17 18:01 Last Admin: 04/24/17 06:17 Dose: 40 mg Pharmacy Profile Note (Patient Taking Own Medication) 1 each PO QAM [facility] Stop: 10/21/17 09:01 Ranolazine (Ranexa) 1,000 mg PO BID [facility] Stop: 10/20/17 21:01 Last Admin: 04/23/17 22:26 Dose: 1,000 mg Sucralfate (Carafate) 1 gm PO QIDAC [facility] Stop: 10/21/17 16:31 Last Admin: 04/23/17 22:26 Dose: 1 gm Sumatriptan Succinate (Imitrex) 50 mg PO AD PRN PRN Reason: Migraine Headache Stop: 10/20/17 12:31 - EKG Interpretation EKG results cardiology: other (SR on tele) - VTE Reasons for not Prescribing Prophylaxis: Medical contraindication Consult Discharge Plan - Plan Referrals: Kenneth Reynaga MD [Primary Care Provider] - Zainab Calabrese MD [Partnered Physician] - (patient states must talk with her to decide which physician she would like to do her outpatient egd/ colonoscopy so I have included all of our contact information) Lukas Encinas MD [Non-Partnered Physician] - Micha Nieves MD [Partnered Physician] -
[2017-04-24] MEDS: Ranolazine 500 MG TAB.ER.12H PO SCH (08:39)
[2017-04-24] MEDS: Sucralfate 1 GM TABLET PO SCH (08:39)
[2017-04-24] MEDS: Gabapentin 400 MG CAPSULE PO SCH (08:40)
[2017-04-24 08:45] LABS: Hematocrit 28.9 % (35.3-44.9); Hemoglobin 8.8 g/dL (11.5-15.4); Mean Corpuscular HGB Conc 30.4 g/dL (31.6-35.5); Mean Corpuscular Hemoglobin 25.1 pg (28.0-33.3); Mean Corpuscular Volume 82.6 fL (83.0-100.0); Mean Platelet Volume 9.5 fL (9.4-12.4); Platelet Count 272 K/mcL (140-400); Red Cell Distribution Width 15.9 % (11.5-14.5)
[2017-04-24] MEDS ORDERED: Metoprolol XL (24 HR) Succ 25 MG TAB.ER.24H PO SCH ×2 (09:00)
[2017-04-24] MEDS ORDERED: ZETIA PO SCH (09:00)
[2017-04-24] MEDS ORDERED: Isosorbide MONOnitrate (24 HR) 30 MG TAB.ER.24H PO SCH (09:00)
[2017-04-24] MEDS ORDERED: Nystatin SUSP 5 ML UD.LIQ PO SCH (09:00)
[2017-04-24] MEDS ORDERED: Aspirin 81 MG TAB.CHEW PO SCH (09:00)
--- NOTE | 2017-04-24 10:01 | Discharge Summary ---
Date of Encounter: 04/24/17 Time of Encounter: 10:00 - Discharge Diagnosis (1) CAD (coronary artery disease) Priority: Primary Status: Chronic Comments: S/p PCI/ZORA Qualifiers: Coronary Disease-Associated Artery/Lesion type: unspecified vessel or lesion type [place] vs. transplanted heart: [place] heart Associated angina: without angina Qualified Code(s): I25.10 - Atherosclerotic heart disease of [place] coronary artery without angina pectoris (2) Anemia Priority: Secondary Status: Acute Comments: Acute on Chronic anemia s/p 1 unit PRBCs and EGD/Cscope. Qualifiers: Anemia type: other cause Other causes of anemia: other cause, not classified Qualified Code(s): D64.89 - Other specified anemias - Discharge Medications Prescriptions: Sucralfate [Carafate] 1 gm PO QIDAC #120 tablet Home Medications: Nitroglycerin 0.4 mg SL Q5M PRN 12/31/14 [History] Clopidogrel [Plavix] 75 mg PO QAM 12/08/15 [History] Esomeprazole Magnesium [Nexium] 40 mg PO QAM 12/08/15 [History] Ezetimibe [Zetia] 10 mg PO QAM 12/08/15 [History] Gabapentin [Neurontin] 800 mg PO TID 12/08/15 [History] Denosumab [Prolia (For Outpatient Infusion)] 60 mg SQ [id number] 12/27/15 [History ] Oxygen 4 l IH CONT 12/27/15 [History] Ubidecarenone [Co Q10] 100 mg PO BID 12/27/15 [History] Aspirin 81 mg PO QAM 02/01/16 [History] Gemfibrozil [Lopid] 600 mg PO BIDAC #60 tablet 02/02/16 [Rx] Albuterol Neb [Proventil Neb] 2.5 mg IH TID 06/30/16 [History] Ergocalciferol (VITAMIN D2) [Vitamin D2] 50,000 unit PO QWEEK 06/30/16 [History] Metoprolol XL (24 HR) Succ [Toprol Xl] 12.5 mg PO DAILY 06/30/16 [History] SUMAtriptan succinate [Imitrex] 50 mg PO AD PRN 11/20/16 [History] Tramadol HCl [Ultram] 50 - 100 mg PO Q6H PRN 11/20/16 [History] Ranolazine [Ranexa] 1,000 mg PO BID #60 tab 11/22/16 [Rx] levETIRAcetam [Keppra] 500 mg PO Q12HR tab 11/22/16 [Rx] Levalbuterol [Xopenex INH] 1 puff IH Q4H PRN 01/04/17 [History] Citalopram Hydrobromide [Citalopram HBr] 20 mg PO DAILY 04/20/17 [History] Sucralfate [Carafate] 1 gm PO QIDAC #120 tablet 04/24/17 [Rx] Allergies/Adverse Reactions: 3 Allergy/AdvReac Type Severity Reaction Status Date / Time Hydroxychloroquine Allergy Severe Swelling Verified 12/23/16 15:33 of Lip/Tongue/Throat epinephrine Allergy Seizure Verified 12/23/16 15:33 [From Epi E-Z Pen] iron AdvReac Abdominal Verified 12/23/16 15:33 Pain Date of admission: 04/23/17 08:54 Primary care physician: Kenneth Reynaga MD Consults: 04/21/17 11:52 Consult to Surgery [CONS] Routine Consulting Provider: [facility] Reason for Consult: Anemia Call Completed: Yes Discharging clinician: Pavan Orellana Anticipated date of discharge: 04/24/17 - Patient Status Disposition: Home, Self-Care Condition: Fair Functional capacity at discharge: independent ambulation Overall status at discharge: patient is progressing back to baseline - Discharge Instructions Follow Up With: Kenneth Reynaga MD [Primary Care Provider] - Zainab Calabrese MD [Partnered Physician] - (patient states must talk with her to decide which physician she would like to do her outpatient egd/ colonoscopy so I have included all of our contact information) Lukas Encinas MD [Non-Partnered Physician] - Micha Nieves MD [Partnered Physician] - Additional Instructions: RISK FACTORS: STOP SMOKING: If you smoke, STOP. Smoking or tobacco use significantly increases your risk of heart disease because nicotine causes the arteries to narrow or constrict. It also causes fats to stick to the artery. Your chances of having a heart attack are greatly increased if you continue to smoke. For more information, call the education line for smoking cessation 7-640-MZPDFYB EAT A LOW FAT/CHOLESTEROL/SODIUM DIET: This diet may help reduce your chances of having a heart attack. LIFTING: Avoid lifting anything more than 10 pounds for 5-7 days Prior to straining, laughing, sneezing and/or coughing, apply manual pressure directly over insertion site. ACTIVITY: You may walk or climb stairs as tolerated You can resume sexual activity as tolerated In general, you are encouraged to engage in a minimum of 30 minutes or more of moderate intensity physical activity, such as brisk walking, daily or at least 3 -4 times weekly BATHING Do not submerge the site into water (bath tub, hot tub, swimming pool) for 1 week. This can be a source for infection into the blood stream. You may shower after 24 hours SITE CARE: After 24 hours, you may remove the dressing and leave the site open to air. Keep the site clean and dry. Clean gently and pat dry. You can expect bruising and tenderness that gradually resolve within a week or two. Return to work as instructed per your physician Resume driving as instructed per physician Keep all scheduled follow up appointments Resume medications as instructed IMPORTANT: If prescribed a Platelet Aggregation Inhibitor such as, Plavix, Brilinta or Effient: Duration of therapy is minimum one year These medications are often used in combination with Aspirin in prevention of future heart attacks Never discontinue unless consult with your Fried Cake Maker STROKE (CVA) Risk factors for a stroke are: Age, cigarette smoking, diabetes, excessive alcohol consumption, family history, high blood pressure, overweight, physical inactivity, prior stroke, heart attack, diagnosis of carotid artery stenosis or other artery disease. Warning signs: Sudden numbness or weakness of the face, arm or leg; especially on one side of the body, sudden confusion, trouble speaking or understanding, sudden trouble seeing in one or both eyes, sudden trouble walking, dizziness, loss of balance or coordination, sudden severe headache with no cause. Call 911 or go to the Emergency Room. CONGESTIVE HEART FAILURE: If you have been diagnosed with Congestive Heart Failure (CHF) and your symptoms return, make an appointment with your physician Weigh yourself daily. Notify your physician if you have a weight gain of two or more pounds in one day or five or more pounds in one week. If you experience any difficulty breathing, please call 911 BLEEDING: Although the risk of bleeding is minimal, it can happen. If you have any bleeding from the site, apply firm pressure above the puncture site for 10-15 minutes. If the bleeding does not stop, continue manual pressure and call 911 Contact your physician if: You develop a fever greater than 101 degrees Fahrenheit Your site becomes reddened or has any drainage You have an increase in pain or burning at the site or if a large knot forms at the site. If you experience chest pain, shortness of breath, dizziness, or extreme tiredness, stop the activity and rest. Please notify your physicians office if you experience any of these symptoms and they are not relieved by rest please call 911! - Diet and Activity Diet: low fat, low cholesterol, low salt diet - Hospital Course Hospital course: Ms. Ratliff is a 61 year old female with a Hx of CABG and PCI. S/P [facility] 04/21- PTCA/ ZORA proximal RCA, hx CABG with 2 of 3 patent bypass grafts, SVG to the OM with moderate on obstructive CAD. DAPT (ASA and Plavix) uninterrupted x 1 year. On Ranexa, BB. Intolerant to statins. SBP 90-100's-- now off Imdur and Norvasc. On BB, will monitor SBP at home. Had Acute on chronic anemia. CT ABD/Pelvis without contrast-- no evidence of bleeding. s/p 1 PRBC transfusion. S/p EGD and Cscope-- no significant findings. H&H stable. Unable to stop ASA and Plavix given PCI few days ago. Discussed with Dr. Cheung and ok to dc to home. Post procedure education provided. All questions answered. - Time Spent with Patient Total time spent providing and/or coordinating discharge services: Less than 30 minutes Physical Examination Vital Signs, Last 4 Hours Temp Pulse Resp BP Pulse Ox 04/24/17 07:38 98.4 F 74 16 97/62 94 Other: see note from this am for exam - VTE Reasons for not Prescribing Prophylaxis: Medical contraindication
== END 2017-04-24 12:28 | disposition home or self-care (01) ==
LOC: INVDIALAB 09:15 → 2ANU 09:15
PROVIDERS: ADMIT Internal Medicine Cardiovascular Disease; ATTEND Internal Medicine Cardiovascular Disease
PROC: ENDOEBX (2017-04-23 10:00)

== ENCOUNTER 2017-07-18 02:13 | Inpatient (IN) ==
[2017-07-18] MEDS: Nitroglycerin 25 MG/250 ML INFUS..BTL IVC SCH (02:35)
--- NOTE | 2017-07-18 02:40 | Emergency Department Note ---
Disposition Clinical Impression: Unstable angina pectoris, Angina at rest Disposition: Admitted As Inpatient Condition: Fair Forms: ED Satisfaction Letter Time of Disposition: 03:38 Chest Pain HPI - General Chief Complaint: ED Chest Pain Stated Complaint: Chest pain Time Seen by Provider: 07/18/17 02:22 Source: patient, EMS Mode of arrival: EMS Limitations: no limitations Vital Signs Reviewed: Yes Nursing Notes Reviewed: Yes - History of Present Illness HPI Narrative: 61-year-old female presents to the emergency department via EMS for chest pain. Patient does have cardiac history including triple bypass done 6 years ago and since then having 5 stents placed. Since she woke up from sleep with 8 out of 10 chest pain right in the center of her chest nonradiating. She had no nausea or vomiting. She states that this is similar pain to when she had a heart attack and had stents placed in the past but she had no nausea and vomiting which occurred in all the other times. She said she did take 4 nitroglycerin which did help her chest pain is a brought it down to 3 out of 10. The chest pain is getting better at this time. Patient has never had any blood clots. atient otherwise is having no complaints at this time. She is not having any headaches, blurry vision, neck pain, back pain, shortness of breath, abdominal pain, changes in urination, pain with urination, change in bowel movement, peritoneal in any arms or legs and generalized weakness. Severity scale (1-10): 3 - Related Data Home Medications Medication Instructions Recorded Confirmed Nitroglycerin 0.4 mg SL Q5M PRN 12/31/14 07/18/17 Clopidogrel [Plavix] 75 mg PO QAM 12/08/15 07/18/17 Esomeprazole Magnesium [Nexium] 40 mg PO QAM 12/08/15 07/18/17 Ezetimibe [Zetia] 10 mg PO QAM 12/08/15 07/18/17 Gabapentin [Neurontin] 800 mg PO TID 12/08/15 07/18/17 Oxygen 4 l IH CONT 12/27/15 07/18/17 Ubidecarenone [Co Q10] 100 mg PO BID 12/27/15 07/18/17 Aspirin 81 mg PO QAM 02/01/16 07/18/17 Albuterol Neb [Proventil Neb] 2.5 mg IH TID 06/30/16 07/18/17 Ergocalciferol (VITAMIN D2) 50,000 unit PO QWEEK 06/30/16 07/18/17 [Vitamin D2] SUMAtriptan succinate [Imitrex] 50 mg PO AD PRN 11/20/16 07/18/17 Tramadol HCl [Ultram] 50 - 100 mg PO Q6H PRN 11/20/16 07/18/17 Levalbuterol [Xopenex INH] 1 puff IH Q4H PRN 01/04/17 07/18/17 Citalopram Hydrobromide 20 mg PO DAILY 04/20/17 07/18/17 [Citalopram HBr] Methotrexate [Otrexup] 15 mg PO QWEEK MDD .[email or web address] 07/18/17 Previous Rx's Medication Instructions Recorded Gemfibrozil [Lopid] 600 mg PO BIDAC #60 tablet 02/02/16 Ranolazine [Ranexa] 1,000 mg PO BID #60 tab 11/22/16 levETIRAcetam [Keppra] 500 mg PO Q12HR tab 11/22/16 Sucralfate [Carafate] 1 gm PO QIDAC #120 tablet 04/24/17 Ipratropium Neb [Atrovent Neb] 0.5 mg IH Q6HR PRN #20 vial.neb 05/20/17 predniSONE [Prednisone] 50 mg PO DAILY #5 tablet 05/20/17 Folic Acid 1 mg PO DAILY #90 tablet 05/30/17 Allergies Allergy/AdvReac Type Severity Reaction Status Date / Time Hydroxychloroquine Allergy Severe Swelling Verified 05/29/17 16:02 of Lip/Tongue/Throat epinephrine Allergy Seizure Verified 05/29/17 16:02 [From Epi E-Z Pen] iron AdvReac Abdominal Verified 05/29/17 16:02 Pain Review of Systems: 10 point review of systems done and negative unless otherwise stated in the history of present illness. All systems ED: reviewed and negative except as stated. 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 HELPER history: Reports: no 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 HELPER history - Social History Smoking Status: Never smoker Alcohol use: Reports: rarely Drug use: Reports: none Physical Exam - General Limitations: no limitations General appearance: alert, in no apparent distress - Head Head exam: atraumatic, normocephalic, normal inspection - Eye Eye exam: Present: normal appearance, PERRL, EOMI - ENT ENT exam: normal exam, normal oropharynx, mucous membranes moist - Neck Neck exam: Present: normal inspection, full ROM, trachea midline - Chest Chest inspection: Present: normal inspection, symmetric chest wall rise - Respiratory Respiratory exam: Present: normal lung sounds bilaterally - Cardiovascular Cardiovascular exam: Present: regular rate, normal rhythm, normal heart sounds - Abdominal Exam Abdominal exam: Present: soft, Non-Tender. Absent: tenderness, distention, guarding, rebound, rigidity - Extremities Exam Extremities exam: Present: normal inspection, full ROM. Absent: tenderness, pedal edema - Back Exam Back exam: Present: normal inspection, full ROM. Absent: tenderness - Neurological Exam Neurological exam: Present: alert, oriented X3 - Skin Skin exam: Present: warm, dry, intact, normal color Course Course Narrative: 61-year-old female presents to emergency department with chest pain she has had extensive cardiac history we will get normal chest pain workup including CBC, troponin,BMP as well as chest x-ray and EKG. Patient given aspirin and nitroglycerin sublingual. We will start nitro drip until chest pain completely alleviates. Most likely disposition will be admission for further evaluation due to her chest pain and history. Vital Signs Temperature 97.8 F 07/18/17 02:15 Pulse Rate 74 07/18/17 02:15 Respiratory Rate 16 07/18/17 02:15 Blood Pressure 138/73 07/18/17 02:15 O2 Sat by Pulse Oximetry 100 07/18/17 02:15 Temperature 97.8 F 07/18/17 02:15 Pulse Rate 63 07/18/17 03:15 Respiratory Rate 18 07/18/17 03:15 Blood Pressure 127/82 07/18/17 03:15 O2 Sat by Pulse Oximetry 100 07/18/17 03:15 Oxygen Delivery Oxygen Delivery Nasal Cannula Chest Pain - MDM Narrative Medical decision making narrative: 61-year-old female presents to the emergency department complaining of chest pain. Patient has had multiple cardiac stents as well as bypass. She patient' s history disposition for admission was likely. Her troponin was normal EKG had no acute changes chest x-ray is normal as well. We did give patient nitro drip she was increased to 10 g after being on that she her chest pain completely went away slightly titrate her down to 5. Patient was given aspirin and 4 sublingual nitroglycerin prior to her arrival. Spoke with the hospitalist Dr. Duong who agreed to admit the patient to their service. Patient is okay with this plan. She is stable at this time Chest X-Ray 07/18/17 02:22 IMPRESSION: No acute disease. D/ / Alan Galo MD / Alan Galo MD Interpreting Provider: Alan Galo MD - Medical Records Medical records reviewed: Yes I reviewed the patient's medical records. - Lab Data Lab results reviewed: Yes I reviewed the patient's lab results. Result diagrams: 07/18/17 02:29 07/18/17 02:29 Lab Results 07/18/17 07/18/17 07/18/17 Range/Units 02:29 02:29 02:29 WBC 3.7 L (4.3-11.1) K/mcL RBC 4.15 (3.82-4.97) M/mcL Hgb 12.7 (11.5-15.4) g/dL Hct 37.7 (35.3-44.9) % MCV 90.8 (83.0-100.0) fL MCH 30.6 (28.0-33.3) pg MCHC 33.7 (31.6-35.5) g/dL RDW 17.6 H (11.5-14.5) % Plt Count 317 (140-400) K/mcL MPV 8.8 L (9.4-12.4) fL Immature Gran % 0.3 (0-4) % Seg Neutrophils % 54.7 % Lymphocytes % 32.2 % Monocytes % 9.8 % Eosinophils % 2.5 % Basophils % 0.5 % Neutrophils # 2.0 (1.6-8.9) K/mcL Lymphocytes # 1.2 (0.6-4.6) K/mcL Monocytes # 0.4 (0.0-1.3) K/mcL Eosinophils # 0.1 (0.0-0.6) K/mcL Basophils # 0.0 (0.0-0.2) K/mcL PT 12.0 (9.4-12.1) Seconds INR 1.1 APTT 31.3 (26.0-36.0) Seconds Sodium 141 (136-145) mEq/L Potassium 3.4 L (3.5-5.1) mEq/L Chloride 109 H (98-107) mEq/L Carbon Dioxide 24 (23-29) mEq/L BUN 16 (8-23) mg/dL Creatinine 0.59 L (0.60-1.20) mg/dL Est GFR ( Amer) > 60 (> 60) Est GFR (Non-Af Amer) > 60 (> 60) BUN/Creatinine Ratio 27 H (6-26) Glucose 118 H (70-105) mg/dL Calculated Osmolality 294 (280-300) Calcium 9.0 (8.6-10.3) mg/dL Troponin I < 0.03 (< 0.04) ng/mL - Radiology Data Radiology results reviewed: Yes I reviewed the patient's radiology results. - EKG Data EKG attestation: Yes I reviewed and interpreted this EKG. EKG results narrative: EKG done at 0 221 review myself and attending shows sinus rhythm rate of 63, WI interval 201, QRS 88, QTc 456 with anormal axis. There is mild ST depression in leads V4 5 and [address] changes no other T-wave abnormalities no other signs of ischemia. No signs of heart strain or hypertrophy or heart block. No WPW/Brugada syndrome. ST depression is also an old EKG done 05/20/17 this most likely is unchanged and not likely new ischemia. Heart Score - Score History: Moderately Suspicious EKG: Non Specific repolarisation Disturbance Age: 45-65 Risk Factors: Equal/Greater than 3 risk factor or history of atherosclerotic disease Troponin: Less than normal limit HEART Score Total: 5 Critical Care Time Critical Care Time: Yes Total Critical Care Time: 45 Attestation: Critical care performed: Time is exclusive of separately billable procedures. Time includes: direct patient care, patient reassessment, coordination of patient care, interpretation of data (laboratory data, radiology data, and respiratory data), review of patient's medical records, medical consultation and documentation of patient care. Procedures included in critical care time: Procedures excluded from critical care time: Attestation Statement - Attestation Attestation: I, Carlos Roberts DO, examined this patient [id number] and my medical decision-making was reviewed with Dr. Barry Winters, Resident Physician. I agree with the documented findings, disposition and treatment plan as described except to the extent set forth below. Please see my progress notes for details. 61-year-old female presented to the emergency room with chest pain. Patient has significant cardiac history including a three-vessel bypass 6 years ago as well as [address] since that procedure. Most recent stenting was in March of this year. She is managed by cardiology this facility. Patient said the symptoms morning were identical to all of her previous cardiac related illnesses. Patient denied having any nausea vomiting diarrhea fevers or chills shortness of breath headache or vision change. Denies any medication changes. Denies any trauma or injury. Patient presents Y and speaking in full sentences. She did take 4 nitroglycerin prior to coming to the emergency room with resolution of her chest pain down from a 9203. Patient will be started on nitroglycerin glycerin drip. She is (324 mg of aspirin. Patient is on a blood thinner but she does not remember the name of it is at this time. Patient will most likely admission the hospital for definitive management. Concern is noted for anginal equivalent based on the symptoms history and presentation. Onset of symptoms approximately 2 hours prior to coming to the emergency room. Physical exam is otherwise unremarkable. Patient's airway and speaking full sentences. Lungs are clear heart is regular abdomen is soft. She has no pitting edema. She moves all 4 extremities with purpose. She has no neurologic deficits. Patient will be started on nitroglycerin drip. Proximally 45 minutes of critical care will be applied to this patient's treatment course. See detailed documentation of physical exam, medical intervention, medical decision-making and disposition in the resident physician' s note. [id number] Patient symptoms are completely resolved with 10 g of nitroglycerin. Blood pressure and vital signs remained stable. EKG does not show any acute signs of myocardial infarction. Chest x-ray and labs are reviewed and unremarkable. Hospitalist was contacted for admission. No other concerns or issues request was noted from them. Patient will be admitted for definitive management.
[2017-07-18] MEDS ORDERED: 0.9 % Sodium Chloride 500 ML ONE (02:44)
[2017-07-18 02:48] LABS: Basophils % 0.5 %; Eosinophils # 0.1 K/mcL (0.0-0.6); Eosinophils % 2.5 %; Hematocrit 37.7 % (35.3-44.9); Hemoglobin 12.7 g/dL (11.5-15.4); Immature Granulocytes % 0.3 % (0-4); Lymphocytes # 1.2 K/mcL (0.6-4.6); Lymphocytes % 32.2 %; Mean Corpuscular HGB Conc 33.7 g/dL (31.6-35.5); Mean Corpuscular Hemoglobin 30.6 pg (28.0-33.3); Mean Corpuscular Volume 90.8 fL (83.0-100.0); Mean Platelet Volume 8.8 fL (9.4-12.4); Monocytes # 0.4 K/mcL (0.0-1.3); Monocytes % 9.8 %; Platelet Count 317 K/mcL (140-400); Red Blood Count 4.15 M/mcL (3.82-4.97); Red Cell Distribution Width 17.6 % (11.5-14.5); Segmented Neutrophils % 54.7 %
[2017-07-18 02:50] LABS: INR 1.1
[2017-07-18 02:52] LABS: Activated Partial Thrombo Time 31.3 Seconds (26.0-36.0)
[2017-07-18 03:04] LABS: BUN/Creatinine Ratio 27 (6-26); Blood Urea Nitrogen 16 mg/dL (8-23); Carbon Dioxide 24 mEq/L (23-29); Chloride 109 mEq/L (98-107); Glucose 118 mg/dL (70-105); Osmolality,Calculated 294 (280-300); Potassium 3.4 mEq/L (3.5-5.1); Sodium 141 mEq/L (136-145); eGFR For African Americans > 60 (> 60); eGFR For Non-African Americans > 60 (> 60)
[2017-07-18 03:05] LABS: Troponin I < 0.03 ng/mL (< 0.04)
[2017-07-18] MEDS ORDERED: Ipratropium Neb 0.5 MG NEBULIZER IH PRN (03:31)
[2017-07-18] MEDS ORDERED: Naloxone 0.4 MG/ML INJ IVP PRN (03:32)
[2017-07-18] MEDS ORDERED: *HR* Enoxaparin 80 MG/0.8 ML SYRINGE SQ ONE (03:34)
[2017-07-18] MEDS ORDERED: Acetaminophen 325 MG TABLET PO ONE (03:38)
--- NOTE | 2017-07-18 03:41 | Internal Med History&Physical ---
Date of Encounter: 07/18/17 Time of Encounter: 03:37 Assessment and Plan (1) Angina at rest Current visit: No Status: Acute Unstable angina in the setting of known coronary artery disease Consult cardiology - known to Dr Bello Trend troponin Continue nitroglycerin drip, 1 dose of Lovenox pending cardiology evaluation in morning Medical optimization with beta blockers, calcium blockers, nitrates with cardiology recommendations (2) COPD (chronic obstructive pulmonary disease) Current visit: No Status: Chronic Stable on 4 L oxygen Qualifiers: COPD type: chronic bronchitis Chronic bronchitis type: simple Qualified Code(s): J41.0 - Simple chronic bronchitis (3) Limited scleroderma Current visit: No Status: Chronic On weekly methotrexate (4) Seizure disorder Current visit: No Status: Chronic On Keppra Internal Medicine - H&P: HPI Chief complaint: Chest pain History of present illness: Ms. Ratliff is a 61 year old female with a history of CAD status post CABG , 5 stents last completed March 2017, patient of Dr. Bello who presents with unstable angina. She reports a migraine episode this evening before bedtime. While she was attempting to go to bed at 11:45 PM, she developed sternal chest pain, radiates to the left arm, neck and jaw, 12 out of 10 in severity, described as sharp in nature, relieved with nitroglycerin tablets and aspirin. On my interview with patient in the ER her pain has resolved on nitroglycerin drip. At baseline she has comorbid COPD, pulmonary hypertension on 4 L nasal cannula, systemic lupus on methotrexate. EKG personally reviewed with rate of 63, normal sinus rhythm, T-wave flattening anterior leads. Unchanged from prior EKG XR/XR chest 1V portable IMPRESSION: No acute disease. 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), appendectomy, cholecystectomy, coronary bypass (CABG), hysterectomy, LEOPOLDO/BSO - Social History Smoking Status: Never smoker Smokeless Tobacco Status: No Alcohol use: rarely Drug use: none - Family History Brother Living Status: Hx Family Cardiac Disorders: Yes (CAD) Daughter Living Status: Still Living Father Adopted: No Living Status: Hx Family Cardiac Disorders: Yes Hx Family Respiratory Disorders: No Hx Family Cancer: No Hx Family GI Disorders: No Hx Family Endocrine Disorder: No Hx Family Neuromuscular Disorders: No Hx Family Neurologic Disorders: No Hx Family HEENT Disorders: No Hx Family Autoimmune Disorders: No Sister Living Status: Hx Family Cardiac Disorders: Yes (CAD) Hx Family Respiratory Disorders: Yes (copd (sister, smoker)) Hx Family Cancer: Yes (breast) Mother Living Status: Hx Family Cardiac Disorders: Yes Son Adopted: No Twin of Family Member: Yes, Identical Living Status: Hx Family Cardiac Disorders: Yes (father massive heart attack) Hx Family Respiratory Disorders: No Hx Family Cancer: Yes Hx Family GI Disorders: No Hx Family Endocrine Disorder: No Hx Family Neuromuscular Disorders: No Hx Family Neurologic Disorders: No Hx Family HEENT Disorders: Yes Hx Family Autoimmune Disorders: No Internal Medicine - H&P: Meds Nitroglycerin 0.4 mg SL Q5M PRN 12/31/14 [History] Clopidogrel [Plavix] 75 mg PO QAM 12/08/15 [History] Esomeprazole Magnesium [Nexium] 40 mg PO QAM 12/08/15 [History] Ezetimibe [Zetia] 10 mg PO QAM 12/08/15 [History] Gabapentin [Neurontin] 800 mg PO TID 12/08/15 [History] Oxygen 4 l IH CONT 12/27/15 [History] Ubidecarenone [Co Q10] 100 mg PO BID 12/27/15 [History] Aspirin 81 mg PO QAM 02/01/16 [History] Gemfibrozil [Lopid] 600 mg PO BIDAC #60 tablet 02/02/16 [Rx] Albuterol Neb [Proventil Neb] 2.5 mg IH TID 06/30/16 [History] Ergocalciferol (VITAMIN D2) [Vitamin D2] 50,000 unit PO QWEEK 06/30/16 [History] SUMAtriptan succinate [Imitrex] 50 mg PO AD PRN 11/20/16 [History] Tramadol HCl [Ultram] 50 - 100 mg PO Q6H PRN 11/20/16 [History] Ranolazine [Ranexa] 1,000 mg PO BID #60 tab 11/22/16 [Rx] levETIRAcetam [Keppra] 500 mg PO Q12HR tab 11/22/16 [Rx] Levalbuterol [Xopenex INH] 1 puff IH Q4H PRN 01/04/17 [History] Citalopram Hydrobromide [Citalopram HBr] 20 mg PO DAILY 04/20/17 [History] Sucralfate [Carafate] 1 gm PO QIDAC #120 tablet 04/24/17 [Rx] Ipratropium Neb [Atrovent Neb] 0.5 mg IH Q6HR PRN #20 vial.neb 05/20/17 [Rx] predniSONE [Prednisone] 50 mg PO DAILY #5 tablet 05/20/17 [Rx] Folic Acid 1 mg PO DAILY #90 tablet 05/30/17 [Rx] Methotrexate [Otrexup] 15 mg PO QWEEK MDD .mondays07/18/17 [History] 3 Allergy/AdvReac Type Severity Reaction Status Date / Time Hydroxychloroquine Allergy Severe Swelling Verified 05/29/17 16:02 of Lip/Tongue/Throat epinephrine Allergy Seizure Verified 05/29/17 16:02 [From Epi E-Z Pen] iron AdvReac Abdominal Verified 05/29/17 16:02 Pain All Systems PM: A 10-system review of systems was performed and is negative for pertinent findings except as documented above in the HPI. Review of systems: ROS 14 point review of systems reviewed as best as possible given presentation. Pertinent positive or negative as per HPI or otherwise reviewed as negative - Constitutional Vitals: Temp Pulse Resp BP Pulse Ox 97.8 F 63 18 127/82 100 07/18/17 02:15 07/18/17 03:15 07/18/17 03:15 07/18/17 03:15 07/18/17 03:15 Exam: General - AAO x 3 Psych - Appropriate affect/speech. No agitation Eyes - MAGDIEL. Eye lids intact. No scleral icterus Heart - Sinus. RRR. S1 and S2 present. No added HS/murmurs appreciated. No elevated JVD appreciated. Lung - Adequate air entry b/l, No crackles/wheezes appreciated GI - Soft, non-tender. No hepatosplenomegaly/ascites. BS+ - No CVA/suprapubic tenderness or palpable bladder distension Skin - Intact. No rash/petechiae/ecchymosis. Warm extremities Internal Med - H&P Results - Labs CBC & Chem 7: 07/18/17 02:29 07/18/17 02:29 Labs: Short CBC 07/18/17 Range/Units 02:29 WBC 3.7 L (4.3-11.1) K/mcL Hgb 12.7 (11.5-15.4) g/dL Hct 37.7 (35.3-44.9) % Plt Count 317 (140-400) K/mcL Neutrophils # 2.0 (1.6-8.9) K/mcL BMP 07/18/17 02:29 Sodium 141 Potassium 3.4 L Chloride 109 H Carbon Dioxide 24 BUN 16 Creatinine 0.59 L Glucose 118 H Calcium 9.0 Cardiac Enzymes 07/18/17 Range/Units 02:29 Troponin I < 0.03 (< 0.04) ng/mL - Impressions ITS Impressions Chest X-Ray 07/18/17 02:22 IMPRESSION: No acute disease. D/ / Alan Galo MD / Alan Galo MD Interpreting Provider: Alan Galo MD
[2017-07-18] MEDS ORDERED: NON-FORMULARY MEDICATION 1 EACH EACH (Oxygen [Oxygen] 4 L) IH SCH (03:45)
[2017-07-18] MEDS: traMADol 50 MG TABLET PO PRN ×2 (06:13→20:31)
[2017-07-18] MEDS: levETIRAcetam 250 MG TABLET PO SCH ×2 (06:13→17:28)
--- NOTE | 2017-07-18 08:28 | Internal Med Progress Note ---
<Amos Irizarry Galen - Last Filed: 07/18/17 12:26> Date of Encounter: 07/18/17 - Constitutional Vitals: Temp Pulse Resp BP Pulse Ox 97.8 F 69 16 114/70 99 07/18/17 10:31 07/18/17 10:31 07/18/17 10:31 07/18/17 06:48 07/18/17 10:31 Internal Medicine: Result - Labs CBC & Chem 7: 07/18/17 02:29 07/18/17 02:29 Labs: Cardiac Enzymes 07/18/17 Range/Units 09:32 Troponin I < 0.03 (< 0.04) ng/mL - ABG Interpretation ABG results: PT/INR, D-dimer PT 12.0 Seconds (9.4-12.1) 07/18/17 02:29 Consult Discharge Plan - Plan Referrals: Kenneth Reynaga MD [Primary Care Provider] - - Attending Attestation I performed an independent interview and examine this patient. I agree with the findings, assessment, and plan Dr. Lopez, internal medicine fall intern. Cardiology input is appreciated. Patient is currently pain-free and awaiting a stress test. She continues on a nitro drip. Patient also has a headache, and does have a history of migraine headaches. CT scan of her head is pending. All else as outlined above. I also appreciate my partner's H&P earlier this morning. <Jamie Lopez - Last Filed: 07/18/17 15:35> Date of Encounter: 07/18/17 Time of Encounter: 08:25 - Assessment and plan (1) Unstable angina Current Visit: Yes Status: Acute Assessment and plan: -Unstable angina in the setting of known coronary artery disease -CXR: No acute process -ASA 81 mg PO QAM -Plavix 75 mg PO QAM -Cardiology consulted; known to Dr. Bello -Cardiac diet -2 sets of troponins have been ordered -Nitroglycerin drip (2) CAD (coronary artery disease) Current Visit: No Status: Chronic Assessment and plan: Last echo performed on 12/24/16 demonstrated the following: -LVEF 60-65% -Normal LV chamber size and function. -Mild concentric left ventricular hypertrophy. -Atypical septal motion consistent with post-operative status -Patient is status post CABG; has had 5 stents placed Plan: -ASA 81 mg PO QAM -Plavix 75 mg PO QAM Qualifiers: Coronary Disease-Associated Artery/Lesion type: unspecified vessel or lesion type [place] vs. transplanted heart: [place] heart Associated angina: without angina Qualified Code(s): I25.10 - Atherosclerotic heart disease of [place] coronary artery without angina pectoris (3) COPD (chronic obstructive pulmonary disease) Current Visit: No Status: Chronic Assessment and plan: -Stable on 4 L oxygen -Atrovent neb 0.5 mg IH Q6 PRN Qualifiers: COPD type: chronic bronchitis Chronic bronchitis type: simple Qualified Code(s): J41.0 - Simple chronic bronchitis (4) Seizure disorder Current Visit: No Status: Chronic Assessment and plan: -Keppra 500 mg by mouth every 12 hours (5) Limited scleroderma Current Visit: Yes Status: Acute Assessment and plan: -On weekly methotrexate - Subjective Interval history: 61-year-old female. Known history of coronary artery disease status post CABG , 5 stents last completed in March 2017 who presented to the hospital with the chief complaint of chest pain. Reported migraine before bedtime on the evening of presentation. Developed sternal chest pain radiating to the left arm, neck, and jaw. Described as sharp in nature, relieved with nitroglycerin and aspirin. Upon arrival to the hospital, patient was placed on a nitroglycerin drip, which relieved her symptoms. EKG demonstrated T-wave flattening in the anterior leads. Unchanged from prior EKG. Chest x-ray showed no acute process. Patient was seen and examined at bedside this morning. Reports feeling better today. Complains of intermittent headaches. Denies having any chest pain, cough, fever, chills, shortness of breath, or diaphoresis. Possible stress test later today. May need scan of the head. No further complaints at this time. - Constitutional Vitals: Temp Pulse Resp BP Pulse Ox 97.6 F 64 15 114/70 100 07/18/17 06:48 07/18/17 06:48 07/18/17 06:48 07/18/17 06:48 07/18/17 06:48 - Head Head exam: Present: atraumatic, normocephalic - Eye Eye exam: Present: PERRL, conjuntiva pink, sclera anicteric Pupils: Present: PERRL - Neck Neck exam general surgery: Present: supple, trachea midline. Absent: lymphadenopathy - Respiratory Respiratory exam: Present: CTAB. Absent: accessory muscle use, rales, rhonchi, wheezes - Cardiovascular Cardiovascular exam: Present: RRR, +S1, +S2. Absent: diastolic murmur, gallop, rubs, systolic murmur - GI/Abdominal GI/Abdominal exam: Present: normal bowel sounds, soft, no peritoneal signs. Absent: distended, tenderness - Extremities Exam Extremities exam: Present: warm, radial pulses palpable and symmetrical. Absent : calf tenderness, cyanotic, pedal edema - Neurological Exam Neurological exam: Present: CN II-XII intact, oriented X3, no focal deficits. Absent: pronater drift, facial droop, speech deficit - Skin Skin exam: Present: dry, intact Internal Medicine: Result - Labs CBC & Chem 7: 07/18/17 02:29 07/18/17 02:29 - ABG Interpretation ABG results: PT/INR, D-dimer PT 12.0 Seconds (9.4-12.1) 07/18/17 02:29
[2017-07-18] MEDS: Folic Acid 1 MG TABLET PO SCH (08:35)
[2017-07-18] MEDS: Sucralfate 1 GM TABLET PO SCH ×4 (08:35→20:32)
[2017-07-18] MEDS: Ranolazine 500 MG TAB.ER.12H PO SCH ×2 (08:35→20:32)
[2017-07-18] MEDS: Gabapentin 400 MG CAPSULE PO SCH ×3 (08:36→20:31)
[2017-07-18] MEDS: Aspirin 81 MG TAB.CHEW PO SCH (08:36)
[2017-07-18] MEDS: (Ezetimibe [Zetia] 10 MG) PO SCH (08:37)
[2017-07-18] MEDS: (Ubidecarenone [Co Q10] 100 MG) PO SCH (08:37)
--- NOTE | 2017-07-18 09:53 | Cardiology Consult Note ---
Date of Encounter: 07/18/17 Time of Encounter: 09:00 Assessment and Plan (1) Chest pain Current Visit: No Status: Acute Chest pain r/o. Chest pain and nausea similar to previous CA. Troponin negative x1. No change on EKG. H/o CAD, CABG and PCI. Known moderate non-obstructive CAD. Continue to trend troponin. Check TTE. Increase anti-anginals. Add norvasc. Continue ranexa. No imdur secondary to migraines. Wean off NTG gtt. Now pain free. Continue asa, plavix, statin, and bb. On toprol XL 25 mg daily at home- restart. Start norvasc this afternoon if b/p allows. Qualifiers: Chest pain type: chest pain due to myocardial ischemia Ischemic chest pain type: stable angina pectoris Qualified Code(s): I20.8 - Other forms of angina pectoris (2) CAD (coronary artery disease) Current Visit: No Status: Chronic History of CABG and multiple previous PCI. Known moderate non-obstructive disease remaining. [facility] 04/21/18- 100% stenosis in the Mid LAD. 100% stenosis in the Proximal Circumflex. 16 mm long, 70% stenosis in the Proximal RCA. ZORA placed to proximal RCA with no complications. There is a 12 mm long, 70% stenosis in the Mid RCA. An intervention was performed on the Mid RCA with a final stenosis of 50%. 60% stenosis in the Right PDA. Grafts: MCDONALD to LAD patent. SVG to OM with 50% stenosis in the body of graft.SVG to right PDA. Continue medical management. Qualifiers: Coronary Disease-Associated Artery/Lesion type: unspecified vessel or lesion type [place] vs. transplanted heart: [place] heart Associated angina: without angina Qualified Code(s): I25.10 - Atherosclerotic heart disease of [place] coronary artery without angina pectoris Discussion w patient/family: The assessment and plan as outlined above was discussed with the patient and/or family members who expressed understanding and agreement. All questions were answered. Thank you for involving us in the care of your patient. Please call with any questions. History of Present Illness Consult date: 07/18/17 Requesting physician: Demetri Kee Consult reason: Chest pain Chief complaint: Severe headache and mid scapular pain raditing to her chest, nausea History of present illness: Ms. Ratliff is a 61 year old female with a history of CAD, 4V CABG , and multiple previous PCI, BELEN on CPAP, DM type II, morbid obesity, limited scleroderma, essential HTN, and hyperlipidemia. She presented to the hospital with c/o chest pain. Reports that she is experiencing severe migraine headaches and is following with neurology. Last night she developed a severe headache radiating down the back of her neck and between her shoulder blades. Her pain continued to intensify and eventually radiated to her chest and down her left arm and up her left neck. Symptoms were associated with SOB and nausea. She was concerned due to having nausea with her previous CA. She took 4 SL NTG with no relief. She presented to the ED and was admitted for chest pain r/o. Her last LHC was . She received a ZORA to her pRCA with no complication. There was moderate non-obstructive CAD. She was previously on imdur. This was stopped in the past and patient is unsure why. Likely due to severe headaches. Previous testing: TTE 10/2014: EF 60%. Mild AI, mild MR, mild TR. No pulmonary hypertension identified. RVSP 30 mmHg. Limited TTE 07/01/2016: LVEF 60-65%. TTE 09/07/2016: LVEF 60-65%. Normal LV, RV size and function. Mild diastolic dysfunction. Mild to moderate aortic regurgitation. No evidence of pulmonary hypertension. RVSP was not well obtained due to poor TR jet. Limited TTE 12/24/2016: LVEF 60-65%. Mild concentric LVH. Left heart catheterization 12/14/2014: Left main normal. LAD mid 99% stenosis. Circumflex mid 100% stenosis. Ramus normal. RCA mid 30% stenosis and distal 80- 90% stenosis (2 Dl placed). MCDONALD to mid LAD patent. SVG to OM1 patent. SVG to PDA occluded. Lexiscan nuclear stress test 11/03/2016: Gated EF> 70%. Negative for ischemia or prior infarction. [facility] 04/20/17: 04/20/17--severe atherosclerotic coronary artery disease, EF 60%, Patient had successful PTCA/Drug-Eluting Stent placement in the proximal RCA, S/ P CABG 2 of 3 patent bypass grafts, SVG to the OM with moderate Non obstructive CAD. Past Med Surg Social Fam HX - Past Medical History Medical history: arthritis, asthma, CHF, COPD, coronary artery disease, hyperlipidemia, hypertension, myocardial infarction, osteoporosis, seizures, other Psychiatric history: anxiety, depression, PTSD - Past Surgical History Surgical History: angioplasty/stent, appendectomy, cholecystectomy, coronary bypass (CABG), hysterectomy, LEOPOLDO/BSO - Social History Smoking Status: Never smoker Smokeless Tobacco Status: No Alcohol use: rarely Drug use: none - Family History Brother Living Status: Hx Family Cardiac Disorders: Yes (CAD) Daughter Living Status: Still Living Father Adopted: No Living Status: Age at : 42 Cause of : CA Hx Family Cardiac Disorders: Yes Hx Family Respiratory Disorders: No Hx Family Cancer: No Hx Family GI Disorders: No Hx Family Endocrine Disorder: No Hx Family Neuromuscular Disorders: No Hx Family Neurologic Disorders: No Hx Family HEENT Disorders: No Hx Family Autoimmune Disorders: No Sister Living Status: Hx Family Cardiac Disorders: Yes (CAD) Hx Family Respiratory Disorders: Yes (copd (sister, smoker)) Hx Family Cancer: Yes (breast) Mother Living Status: Age at : 89 Cause of : abdominal aneurysm Hx Family Cardiac Disorders: Yes Hx Family GI Disorders: Yes Hx Family Neurologic Disorders: Yes (Epilepsy) Son Adopted: No Age: 44 Twin of Family Member: Yes, Identical Living Status: Still Living Hx Family Cardiac Disorders: Yes (CAD) Hx Family Respiratory Disorders: No Hx Family Cancer: Yes Hx Family GI Disorders: No Hx Family Endocrine Disorder: No Hx Family Neuromuscular Disorders: No Hx Family Neurologic Disorders: No Hx Family HEENT Disorders: Yes Hx Family Autoimmune Disorders: No Medications and Allergies Nitroglycerin 0.4 mg SL Q5M PRN 12/31/14 [History] Clopidogrel [Plavix] 75 mg PO QAM 12/08/15 [History] Esomeprazole Magnesium [Nexium] 40 mg PO QAM 12/08/15 [History] Ezetimibe [Zetia] 10 mg PO QAM 12/08/15 [History] Gabapentin [Neurontin] 800 mg PO TID 12/08/15 [History] Oxygen 4 l IH CONT 12/27/15 [History] Ubidecarenone [Co Q10] 100 mg PO BID 12/27/15 [History] Aspirin 81 mg PO QAM 02/01/16 [History] Gemfibrozil [Lopid] 600 mg PO BIDAC #60 tablet 02/02/16 [Rx] Albuterol Neb [Proventil Neb] 2.5 mg IH TID 06/30/16 [History] Ergocalciferol (VITAMIN D2) [Vitamin D2] 50,000 unit PO QWEEK 06/30/16 [History] SUMAtriptan succinate [Imitrex] 50 mg PO AD PRN 11/20/16 [History] Tramadol HCl [Ultram] 50 - 100 mg PO Q6H PRN 11/20/16 [History] Ranolazine [Ranexa] 1,000 mg PO BID #60 tab 11/22/16 [Rx] levETIRAcetam [Keppra] 500 mg PO Q12HR tab 11/22/16 [Rx] Levalbuterol [Xopenex INH] 1 puff IH Q4H PRN 01/04/17 [History] Citalopram Hydrobromide [Citalopram HBr] 20 mg PO DAILY 04/20/17 [History] Ipratropium Neb [Atrovent Neb] 0.5 mg IH Q6HR PRN #20 vial.neb 05/20/17 [Rx] Folic Acid 1 mg PO DAILY #90 tablet 05/30/17 [Rx] Methotrexate [Otrexup] 15 mg PO MO 07/18/17 [History] Metoprolol Succinate [Toprol Xl] 12.5 mg PO DAILY 07/18/17 [History] 3 Allergy/AdvReac Type Severity Reaction Status Date / Time Hydroxychloroquine Allergy Severe Swelling Verified 05/29/17 16:02 of Lip/Tongue/Throat epinephrine AdvReac Severe Seizure Verified 07/18/17 06:54 [From Epi E-Z Pen] iron AdvReac Abdominal Verified 05/29/17 16:02 Pain All Systems Review: The remainder of the systems were reviewed and are negative Physical Examination Vital Signs, Last 4 Hours Temp Pulse Resp BP Pulse Ox 07/18/17 06:48 97.6 F 64 15 114/70 100 07/18/17 06:05 98.4 F 61 18 131/66 100 General: Conversant, No Apparent Distress HEENT: Atraumatic, Normocephaly, Mucus Membranes Moist Neck: No JVD, Normal carotid pulses Cardiac: Reg Rate and Rhythm, Normal S1 and S2, No Murmur Lungs: Normal Breath Sounds, No Wheeze, Rales, Rhonchi Neuro: Alert and responsive, No focal deficits noted Abdomen: Soft, Non-Tender Skin: No rashes noted on visualized skin Musculoskeletal: No Chest Wall Tenderness Extremities: No Clubbing, No Cyanosis, No Edema, Normal Pulses Results 07/18/17 02:29 07/18/17 02:29 - Imaging and Cardiology Chest Xray: report reviewed Echo: report reviewed Cardiac cath: report reviewed - EKG Interpretation EKG results cardiology: personally reviewed Consult Discharge Plan - Plan Referrals: Kenneth Reynaga MD [Primary Care Provider] -
[2017-07-18] MEDS: Metoprolol XL (24 HR) Succ 25 MG TAB.ER.24H PO SCH (13:49)
[2017-07-18] MEDS: amLODIPine 5 MG TABLET PO SCH (13:52)
[2017-07-18] MEDS ORDERED: Perflutren Lipid Microsphere 1.3 ML in 0.9 % Sodium Chloride 8.7 ML IVP ONE (18:49)
[2017-07-18] MEDS ORDERED: Perflutren Lipid Microsphere 2 ML VIAL ONE (18:52)
--- NOTE | 2017-07-18 20:06 | Electrocardiograph Report ---
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
[2017-07-19] MEDS: (Ubidecarenone [Co Q10] 100 MG) PO SCH ×2 (00:59→08:03)
[2017-07-19 01:54] LABS: Basophils % 0.6 %; Eosinophils # 0.1 K/mcL (0.0-0.6); Eosinophils % 2.1 %; Hematocrit 33.6 % (35.3-44.9); Hemoglobin 11.6 g/dL (11.5-15.4); Immature Granulocytes % 0.3 % (0-4); Lymphocytes # 1.2 K/mcL (0.6-4.6); Lymphocytes % 34.3 %; Mean Corpuscular HGB Conc 34.5 g/dL (31.6-35.5); Mean Corpuscular Hemoglobin 30.8 pg (28.0-33.3); Mean Corpuscular Volume 89.1 fL (83.0-100.0); Mean Platelet Volume 9.2 fL (9.4-12.4); Monocytes # 0.5 K/mcL (0.0-1.3); Monocytes % 13.9 %; Neutrophils # 1.7 K/mcL (1.6-8.9); Platelet Count 289 K/mcL (140-400); Red Blood Count 3.77 M/mcL (3.82-4.97); Red Cell Distribution Width 17.5 % (11.5-14.5); Segmented Neutrophils % 48.8 %
[2017-07-19 02:12] LABS: BUN/Creatinine Ratio 23 (6-26); Blood Urea Nitrogen 17 mg/dL (8-23); Carbon Dioxide 24 mEq/L (23-29); Chloride 111 mEq/L (98-107); Glucose 99 mg/dL (70-105); Osmolality,Calculated 294 (280-300); Potassium 3.8 mEq/L (3.5-5.1); Sodium 141 mEq/L (136-145); eGFR For African Americans > 60 (> 60); eGFR For Non-African Americans > 60 (> 60)
[2017-07-19] MEDS: Folic Acid 1 MG TABLET PO SCH (07:58)
[2017-07-19] MEDS: Gabapentin 400 MG CAPSULE PO SCH ×3 (07:58→20:31)
[2017-07-19] MEDS: Sucralfate 1 GM TABLET PO SCH ×4 (07:58→20:32)
[2017-07-19] MEDS: Aspirin 81 MG TAB.CHEW PO SCH (07:58)
[2017-07-19] MEDS: levETIRAcetam 250 MG TABLET PO SCH ×2 (07:58→16:20)
[2017-07-19] MEDS: amLODIPine 5 MG TABLET PO SCH (08:03)
[2017-07-19] MEDS: (Ezetimibe [Zetia] 10 MG) PO SCH (08:03)
--- NOTE | 2017-07-19 08:03 | Internal Med Progress Note ---
<Jamie Lopez - Last Filed: 07/19/17 13:54> Date of Encounter: 07/19/17 Time of Encounter: 08:02 - Assessment and plan (1) Unstable angina Current Visit: Yes Status: Acute Assessment and plan: -Unstable angina in the setting of known coronary artery disease -CXR: No acute process -ASA 81 mg PO QAM -Plavix 75 mg PO QAM -Cardiology consulted; known to Dr. Bello -Cardiac diet -2 sets of troponins have been ordered -Nitroglycerin drip (2) CAD (coronary artery disease) Current Visit: No Status: Chronic Assessment and plan: Last echo performed on 12/24/16 demonstrated the following: -LVEF 60-65% -Normal LV chamber size and function. -Mild concentric left ventricular hypertrophy. -Atypical septal motion consistent with post-operative status -Patient is status post CABG; has had 5 stents placed Plan: -ASA 81 mg PO QAM -Plavix 75 mg PO QAM Qualifiers: Coronary Disease-Associated Artery/Lesion type: unspecified vessel or lesion type [place] vs. transplanted heart: [place] heart Associated angina: without angina Qualified Code(s): I25.10 - Atherosclerotic heart disease of [place] coronary artery without angina pectoris (3) COPD (chronic obstructive pulmonary disease) Current Visit: No Status: Chronic Assessment and plan: -Stable on 4 L oxygen -Atrovent neb 0.5 mg IH Q6 PRN Qualifiers: COPD type: chronic bronchitis Chronic bronchitis type: simple Qualified Code(s): J41.0 - Simple chronic bronchitis (4) Seizure disorder Current Visit: No Status: Chronic Assessment and plan: -Keppra 500 mg by mouth every 12 hours (5) Limited scleroderma Current Visit: Yes Status: Acute Assessment and plan: -On weekly methotrexate - Subjective Interval history: Patient was seen and examined at bedside this morning. Reports feeling better today. Complains of intermittent headaches. Denies having any chest pain, cough, fever, chills, shortness of breath, or diaphoresis. No further complaints at this time. - Constitutional Vitals: Temp Pulse Resp BP Pulse Ox 97.9 F 70 15 110/74 100 07/19/17 06:35 07/19/17 06:35 07/19/17 06:35 07/19/17 06:35 07/19/17 06:35 - Head Head exam: Present: atraumatic, normocephalic - Eye Eye exam: Present: PERRL, conjuntiva pink, sclera anicteric Pupils: Present: PERRL - Neck Neck exam general surgery: Present: supple, trachea midline. Absent: lymphadenopathy - Respiratory Respiratory exam: Present: CTAB. Absent: accessory muscle use, rales, rhonchi, wheezes - Cardiovascular Cardiovascular exam: Present: RRR, +S1, +S2. Absent: diastolic murmur, gallop, rubs, systolic murmur - GI/Abdominal GI/Abdominal exam: Present: normal bowel sounds, soft, no peritoneal signs. Absent: distended, tenderness - Extremities Exam Extremities exam: Present: warm, radial pulses palpable and symmetrical. Absent : calf tenderness, cyanotic, pedal edema - Neurological Exam Neurological exam: Present: CN II-XII intact, oriented X3, no focal deficits. Absent: pronater drift, facial droop, speech deficit - Skin Skin exam: Present: dry, intact Internal Medicine: Result - Labs CBC & Chem 7: 07/19/17 00:55 07/19/17 00:55 Labs: Short CBC 07/19/17 Range/Units 00:55 WBC 3.4 L (4.3-11.1) K/mcL Hgb 11.6 (11.5-15.4) g/dL Hct 33.6 L (35.3-44.9) % Plt Count 289 (140-400) K/mcL Neutrophils # 1.7 (1.6-8.9) K/mcL BMP 07/19/17 00:55 Sodium 141 Potassium 3.8 Chloride 111 H Carbon Dioxide 24 BUN 17 Creatinine 0.73 Glucose 99 Calcium 9.0 Cardiac Enzymes 07/18/17 07/18/17 Range/Units 09:32 15:44 Troponin I < 0.03 < 0.03 (< 0.04) ng/mL - ABG Interpretation ABG results: PT/INR, D-dimer PT 12.0 Seconds (9.4-12.1) 07/18/17 02:29 - VTE Documentation of Mechanical Device: Graduated compression elastic hosiery Consult Discharge Plan - Plan Instructions: Myocardial Infarction (DC), Chest Pain (DC), Depression (DC), Diabetes Mellitus Type 2 in Adults (DC), Using Oxygen at Home (DC), Using Oxygen at Home (GEN), Chronic Obstructive Pulmonary Disease (DC), Chronic Dysphagia (DC), Chronic Hypertension (DC), Anemia (GEN) Referrals: Kenneth Reynaga MD [Primary Care Provider] - (PLEASE CALL THE OFFICE TO MAKE AN APPOINTMENT IN 5-10 DAYS ) <Amos Irizarry - Last Filed: 07/19/17 14:51> Date of Encounter: 07/19/17 - Constitutional Vitals: Temp Pulse Resp BP Pulse Ox 98.1 F 62 15 118/66 98 07/19/17 11:53 07/19/17 11:53 07/19/17 11:53 07/19/17 11:53 07/19/17 11:53 Internal Medicine: Result - Labs CBC & Chem 7: 07/19/17 00:55 07/19/17 00:55 Labs: Short CBC 07/19/17 Range/Units 00:55 WBC 3.4 L (4.3-11.1) K/mcL Hgb 11.6 (11.5-15.4) g/dL Hct 33.6 L (35.3-44.9) % Plt Count 289 (140-400) K/mcL Neutrophils # 1.7 (1.6-8.9) K/mcL BMP 07/19/17 00:55 Sodium 141 Potassium 3.8 Chloride 111 H Carbon Dioxide 24 BUN 17 Creatinine 0.73 Glucose 99 Calcium 9.0 Cardiac Enzymes 07/18/17 Range/Units 15:44 Troponin I < 0.03 (< 0.04) ng/mL - ABG Interpretation ABG results: PT/INR, D-dimer PT 12.0 Seconds (9.4-12.1) 07/18/17 02:29 - Impressions Impressions Echocardiogram 07/18/17 10:44 Impressions: LVEF 60-65%. Normal LV chamber size, wall thickness and function. Atypical septal motion consistent with post-operative status. Psuedonormal left ventricular diastolic dysfunction. Normal right ventricular structure and function. Mild aortic regurgitation. No evidence of pulmonary hypertension. Left Ventricular Wall Motion: Rest Echo Findings All wall segments showed normal motion. Findings: Study Quality * Technically adequate exam. ECG Findings * Normal sinus rhythm. Left Ventricle * LVEF 60-65%. * Normal LV chamber size, wall thickness and function. * Atypical septal motion consistent with post-operative status. * Psuedonormal left ventricular diastolic dysfunction. Right Ventricle * Normal right ventricular structure and function. Left Atrium * Mildly dilated left atrium. Right Atrium * Mildly dilated right atrium. Interatrial Septum * Interatrial septum not well evaluated. Aortic Valve * Aortic valve not well visualized. * Mild aortic regurgitation. * No aortic stenosis. Mitral Valve * Normal mitral valve structure and function. * No mitral regurgitation. * No mitral stenosis. Tricuspid Valve * Normal tricuspid valve structure and function. * Trace tricuspid regurgitation. * No evidence of pulmonary hypertension. Pulmonic Valve * Pulmonic valve not well visualized. * No pulmonic regurgitation. Aorta * Normally sized aortic root. Pericardium * The pericardium appears normal. IVC * Normal IVC dimensions and inspiratory collapse. Pulmonary Artery * Normal visualized portions of the main pulmonary artery. - Attending Attestation I performed an independent interview and exam of this patient. I agree with the findings, assessment, plan of Dr. Lopez, internal medicine events intern. Cardiology input also appreciated. Patient is no longer having any chest pain. Awaiting stress test. All her other issues are stable at this time.
[2017-07-19] MEDS: Metoprolol XL (24 HR) Succ 25 MG TAB.ER.24H PO SCH (08:04)
[2017-07-19] MEDS: Ranolazine 500 MG TAB.ER.12H PO SCH ×2 (08:04→20:30)
--- NOTE | 2017-07-19 09:45 | Cardiology Progress Note ---
Date of Encounter: 07/19/17 Time of Encounter: 09:44 Assessment and Plan (1) Chest pain Current Visit: No Status: Acute Chest pain r/o. Chest pain and nausea similar to previous [place]. Troponin negative x3. No change on EKG. H/o CAD, CABG and PCI. Known moderate non-obstructive CAD. TTE EF preserved, no significant findings. Increased anti-anginals. Added norvasc. Continue ranexa. No imdur secondary to migraines. Weaned off NTG gtt. Now pain free. Continue asa, plavix, statin, and bb. Plan for stress test today to evaluate for ischemic cause. Continue to follow. Qualifiers: Chest pain type: chest pain due to myocardial ischemia Ischemic chest pain type: stable angina pectoris Qualified Code(s): I20.8 - Other forms of angina pectoris (2) CAD (coronary artery disease) Current Visit: No Status: Chronic History of CABG and multiple previous PCI. Known moderate non-obstructive disease remaining. [facility] 04/21/17- 100% stenosis in the Mid LAD. 100% stenosis in the Proximal Circumflex. 16 mm long, 70% stenosis in the Proximal RCA. ZORA placed to proximal RCA with no complications. There is a 12 mm long, 70% stenosis in the Mid RCA. An intervention was performed on the Mid RCA with a final stenosis of 50%. 60% stenosis in the Right PDA. Grafts: MCDONALD to LAD patent. SVG to OM with 50% stenosis in the body of graft.SVG to right PDA. Continue current medical management and proceed with stress test today. Qualifiers: Coronary Disease-Associated Artery/Lesion type: unspecified vessel or lesion type [place] vs. transplanted heart: [place] heart Associated angina: without angina Qualified Code(s): I25.10 - Atherosclerotic heart disease of [place] coronary artery without angina pectoris Discussion w patient/family: The assessment and plan as outlined above was discussed with the patient and/or family members who expressed understanding and agreement. All questions were answered. Thank you for involving us in the care of your patient. Please call with any questions. I will discuss all the above with Dr. Randolph and make changes as necessary. Subjective Principal diagnosis: Chest pain Interval history: Pt reports chest pain resolved overnight. She now chest pain free. Off nitro gtt. TTE resulted--LVEF 60-65%. Normal LV chamber size, wall thickness and function. Atypical septal motion consistent with post-operative status. Psuedonormal left ventricular diastolic dysfunction. Normal right ventricular structure and function. Mild aortic regurgitation. No evidence of pulmonary hypertension. Troponins remained negative. Objective Vital Signs, Last 4 Hours Temp Pulse Resp BP Pulse Ox 07/19/17 06:35 97.9 F 70 15 110/74 100 Vital Signs Temp Pulse Resp BP Pulse Ox 07/19/17 06:35 97.9 F 70 15 110/74 100 07/19/17 04:00 97.9 F 63 17 106/67 100 07/19/17 00:14 98.9 F 66 16 102/60 98 07/18/17 20:34 99 07/18/17 19:26 98.4 F 67 16 134/79 98 07/18/17 15:46 98.7 F 70 17 122/81 98 07/18/17 10:31 97.8 F 69 16 99 Intake and Output 07/18/17 07/19/17 07/19/17 23:59 07:59 15:59 Intake Total 340 / 340 240 / 240 0 / 0 Output Total 0 / 0 0 / 0 Balance 340 / 340 240 / 240 0 / 0 Intake: Oral 340 / 340 240 / 240 0 / 0 Output: Urine 0 / 0 0 / 0 Other: Meal Dinner NPO Percent of Meal Consumed 0% 0% # Voids 1 # Bowel Movements 0 Weight 96.6 kg Patient Weight 07/19/17 23:59 Weight 96.6 kg General: Conversant, No Apparent Distress HEENT: Atraumatic, Normocephaly, Mucus Membranes Moist Neck: No JVD, Normal carotid pulses Cardiac: Reg Rate and Rhythm, Normal S1 and S2, No Murmur Lungs: Normal Breath Sounds, No Wheeze, Rales, Rhonchi Neuro: Alert and responsive, No focal deficits noted Abdomen: Soft, Non-Tender Skin: No rashes noted on visualized skin Musculoskeletal: No Chest Wall Tenderness Extremities: No Clubbing, No Cyanosis, No Edema, Normal Pulses Results 07/19/17 00:55 07/19/17 00:55 Lab Results 07/18/17 07/18/17 07/19/17 09:32 15:44 00:55 WBC 3.4 L Hgb 11.6 Hct 33.6 L Plt Count 289 Sodium Potassium Chloride Carbon Dioxide BUN Creatinine Glucose Calcium Troponin I < 0.03 < 0.03 07/19/17 00:55 WBC Hgb Hct Plt Count Sodium 141 Potassium 3.8 Chloride 111 H Carbon Dioxide 24 BUN 17 Creatinine 0.73 Glucose 99 Calcium 9.0 Troponin I Short CBC 07/19/17 Range/Units 00:55 WBC 3.4 L (4.3-11.1) K/mcL Hgb 11.6 (11.5-15.4) g/dL Hct 33.6 L (35.3-44.9) % Plt Count 289 (140-400) K/mcL Neutrophils # 1.7 (1.6-8.9) K/mcL BMP 07/19/17 Range/Units 00:55 Sodium 141 (136-145) mEq/L Potassium 3.8 (3.5-5.1) mEq/L Chloride 111 H (98-107) mEq/L Carbon Dioxide 24 (23-29) mEq/L BUN 17 (8-23) mg/dL Creatinine 0.73 (0.60-1.20) mg/dL Glucose 99 (70-105) mg/dL Calcium 9.0 (8.6-10.3) mg/dL Cardiac Enzymes 07/18/17 07/18/17 Range/Units 15:44 09:32 Troponin I < 0.03 < 0.03 (< 0.04) ng/mL Impressions Echocardiogram 07/18/17 10:44 Impressions: LVEF 60-65%. Normal LV chamber size, wall thickness and function. Atypical septal motion consistent with post-operative status. Psuedonormal left ventricular diastolic dysfunction. Normal right ventricular structure and function. Mild aortic regurgitation. No evidence of pulmonary hypertension. Left Ventricular Wall Motion: Rest Echo Findings All wall segments showed normal motion. Findings: Study Quality * Technically adequate exam. ECG Findings * Normal sinus rhythm. Left Ventricle * LVEF 60-65%. * Normal LV chamber size, wall thickness and function. * Atypical septal motion consistent with post-operative status. * Psuedonormal left ventricular diastolic dysfunction. Right Ventricle * Normal right ventricular structure and function. Left Atrium * Mildly dilated left atrium. Right Atrium * Mildly dilated right atrium. Interatrial Septum * Interatrial septum not well evaluated. Aortic Valve * Aortic valve not well visualized. * Mild aortic regurgitation. * No aortic stenosis. Mitral Valve * Normal mitral valve structure and function. * No mitral regurgitation. * No mitral stenosis. Tricuspid Valve * Normal tricuspid valve structure and function. * Trace tricuspid regurgitation. * No evidence of pulmonary hypertension. Pulmonic Valve * Pulmonic valve not well visualized. * No pulmonic regurgitation. Aorta * Normally sized aortic root. Pericardium * The pericardium appears normal. IVC * Normal IVC dimensions and inspiratory collapse. Pulmonary Artery * Normal visualized portions of the main pulmonary artery. Active Medications Amlodipine Besylate (Norvasc) 5 mg PO DAILY CRISTI PRN Reason: Protocol Stop: 01/17/18 12:01 Last Admin: 07/19/17 08:03 Dose: Not Given Aspirin (Aspirin) 81 mg PO QAM [facility] Stop: 01/17/18 09:01 Last Admin: 07/19/17 07:58 Dose: 81 mg Citalopram Hydrobromide (Celexa) 20 mg PO DAILY [facility] Stop: 01/17/18 09:01 Last Admin: 07/19/17 07:58 Dose: 20 mg Clopidogrel Bisulfate (Plavix) 75 mg PO QAM [facility] Stop: 01/17/18 09:01 Last Admin: 07/19/17 07:58 Dose: 75 mg Folic Acid (Folic Acid) 1 mg PO DAILY [facility] Stop: 01/17/18 09:01 Last Admin: 07/19/17 07:58 Dose: 1 mg Gabapentin (Neurontin) 800 mg PO TID [facility] Stop: 01/17/18 09:01 Last Admin: 07/19/17 07:58 Dose: 800 mg Gemfibrozil (Lopid) 600 mg PO BIDAC [facility] Stop: 01/17/18 07:31 Last Admin: 07/19/17 07:58 Dose: 600 mg Ipratropium [place] (Atrovent Neb) 0.5 mg IH Q6H PRN PRN Reason: Wheezing Stop: 01/17/18 03:32 Levetiracetam (Keppra) 500 mg PO Q12HR [facility] Stop: 01/17/18 06:01 Last Admin: 07/19/17 07:58 Dose: 500 mg Metoprolol Succinate (Toprol Xl) 25 mg PO DAILY [facility] Stop: 01/17/18 10:46 Last Admin: 07/19/17 08:04 Dose: Not Given Naloxone HCl (Narcan) 0.4 mg IVP Q2MIN PRN PRN Reason: SEE COMMENTS Stop: 01/17/18 03:33 Omeprazole (Prilosec) 20 mg PO QAM [facility] Stop: 01/17/18 09:01 Last Admin: 07/19/17 07:58 Dose: 20 mg Pharmacy Profile Note (Patient Taking Own Medication) 0 each PO QAM [facility] Stop: 01/17/18 09:01 Last Admin: 07/19/17 08:03 Dose: Not Given Pharmacy Profile Note (Patient Taking Own Medication) 0 each PO BID [facility] Stop: 01/17/18 09:01 Last Admin: 07/19/17 08:03 Dose: Not Given Ranolazine (Ranexa) 1,000 mg PO BID [facility] Stop: 01/17/18 09:01 Last Admin: 07/19/17 08:04 Dose: Not Given Sucralfate (Carafate) 1 gm PO QIDAC [facility] Stop: 01/17/18 07:31 Last Admin: 07/19/17 07:58 Dose: 1 gm Tramadol HCl (Ultram) 50 mg PO Q6H PRN PRN Reason: Pain Stop: 01/17/18 03:32 Last Admin: 07/18/17 20:31 Dose: 50 mg - EKG Interpretation EKG results cardiology: other (12 hr tele AVG HR 66, SR, no significant pauses or arrhythmias) - VTE Documentation of Mechanical Device: Graduated compression elastic hosiery Consult Discharge Plan - Plan Referrals: Kenneth Reynaga MD [Primary Care Provider] -
[2017-07-19] MEDS ORDERED: Regadenoson 0.4 MG/5 ML SYRINGE IVP ONE (11:38)
[2017-07-19] MEDS ORDERED: Ketorolac 15 MG/ML VIAL IVP ONE (16:14)
[2017-07-19] MEDS: traMADol 50 MG TABLET PO PRN (20:29)
[2017-07-20] MEDS: levETIRAcetam 250 MG TABLET PO SCH ×2 (05:13→16:47)
[2017-07-20 05:35] LABS: Basophils % 0.5 %; Eosinophils # 0.1 K/mcL (0.0-0.6); Eosinophils % 2.1 %; Hematocrit 33.9 % (35.3-44.9); Hemoglobin 11.5 g/dL (11.5-15.4); Immature Granulocytes % 0.3 % (0-4); Lymphocytes # 1.2 K/mcL (0.6-4.6); Lymphocytes % 31.9 %; Mean Corpuscular HGB Conc 33.9 g/dL (31.6-35.5); Mean Corpuscular Hemoglobin 30.5 pg (28.0-33.3); Mean Corpuscular Volume 89.9 fL (83.0-100.0); Monocytes # 0.5 K/mcL (0.0-1.3); Monocytes % 12.9 %; Platelet Count 281 K/mcL (140-400); Red Blood Count 3.77 M/mcL (3.82-4.97); Segmented Neutrophils % 52.3 %
[2017-07-20 05:46] LABS: BUN/Creatinine Ratio 36 (6-26); Blood Urea Nitrogen 24 mg/dL (8-23); Carbon Dioxide 24 mEq/L (23-29); Chloride 110 mEq/L (98-107); Glucose 94 mg/dL (70-105); Osmolality,Calculated 298 (280-300); Potassium 3.7 mEq/L (3.5-5.1); Sodium 142 mEq/L (136-145); eGFR For African Americans > 60 (> 60); eGFR For Non-African Americans > 60 (> 60)
--- NOTE | 2017-07-20 08:48 | Internal Med Progress Note ---
<Jamie Lopez - Last Filed: 07/20/17 11:35> Date of Encounter: 07/20/17 Time of Encounter: 08:48 - Assessment and plan (1) Unstable angina Current Visit: Yes Status: Acute Assessment and plan: -Unstable angina in the setting of known coronary artery disease -CXR: No acute process -ASA 81 mg PO QAM -Plavix 75 mg PO QAM -Cardiology consulted; known to Dr. Bello -Cardiac diet -Stress test today (2) CAD (coronary artery disease) Current Visit: No Status: Chronic Assessment and plan: Last echo performed on 12/24/16 demonstrated the following: -LVEF 60-65% -Normal LV chamber size and function. -Mild concentric left ventricular hypertrophy. -Atypical septal motion consistent with post-operative status -Patient is status post CABG; has had 5 stents placed Plan: -ASA 81 mg PO QAM -Plavix 75 mg PO QAM Qualifiers: Coronary Disease-Associated Artery/Lesion type: unspecified vessel or lesion type [place] vs. transplanted heart: [place] heart Associated angina: without angina Qualified Code(s): I25.10 - Atherosclerotic heart disease of [place] coronary artery without angina pectoris (3) COPD (chronic obstructive pulmonary disease) Current Visit: No Status: Chronic Assessment and plan: -Stable on oxygen -Atrovent neb 0.5 mg IH Q6 PRN Qualifiers: COPD type: chronic bronchitis Chronic bronchitis type: simple Qualified Code(s): J41.0 - Simple chronic bronchitis (4) Seizure disorder Current Visit: No Status: Chronic Assessment and plan: -Keppra 500 mg by mouth every 12 hours (5) Limited scleroderma Current Visit: Yes Status: Acute Assessment and plan: -On weekly methotrexate - Subjective Interval history: Patient was seen and examined at bedside this morning. Reports feeling better today. Complains of intermittent headaches. Denies having any chest pain, cough, fever, chills, shortness of breath, or diaphoresis. No further complaints at this time. - Constitutional Vitals: Temp Pulse Resp BP Pulse Ox 97.8 F 67 16 107/66 97 07/20/17 07:41 07/20/17 07:41 07/20/17 07:41 07/20/17 07:41 07/20/17 07:41 - Head Head exam: Present: atraumatic, normocephalic - Eye Eye exam: Present: PERRL, conjuntiva pink, sclera anicteric Pupils: Present: PERRL - Neck Neck exam general surgery: Present: supple, trachea midline. Absent: lymphadenopathy - Respiratory Respiratory exam: Present: CTAB. Absent: accessory muscle use, rales, rhonchi, wheezes - Cardiovascular Cardiovascular exam: Present: RRR, +S1, +S2. Absent: diastolic murmur, gallop, rubs, systolic murmur - GI/Abdominal GI/Abdominal exam: Present: normal bowel sounds, soft, no peritoneal signs. Absent: distended, tenderness - Extremities Exam Extremities exam: Present: warm, radial pulses palpable and symmetrical. Absent : calf tenderness, cyanotic, pedal edema - Neurological Exam Neurological exam: Present: CN II-XII intact, oriented X3, no focal deficits. Absent: pronater drift, facial droop, speech deficit - Skin Skin exam: Present: dry, intact Internal Medicine: Result - Labs CBC & Chem 7: 07/20/17 04:05 07/20/17 04:05 Labs: Short CBC 07/20/17 Range/Units 04:05 WBC 3.7 L (4.3-11.1) K/mcL Hgb 11.5 (11.5-15.4) g/dL Hct 33.9 L (35.3-44.9) % Plt Count 281 (140-400) K/mcL Neutrophils # 2.0 (1.6-8.9) K/mcL BMP 07/20/17 04:05 Sodium 142 Potassium 3.7 Chloride 110 H Carbon Dioxide 24 BUN 24 H Creatinine 0.67 Glucose 94 Calcium 9.0 - ABG Interpretation ABG results: PT/INR, D-dimer PT 12.0 Seconds (9.4-12.1) 07/18/17 02:29 - Impressions Impressions Echocardiogram 07/18/17 10:44 Impressions: LVEF 60-65%. Normal LV chamber size, wall thickness and function. Atypical septal motion consistent with post-operative status. Psuedonormal left ventricular diastolic dysfunction. Normal right ventricular structure and function. Mild aortic regurgitation. No evidence of pulmonary hypertension. Left Ventricular Wall Motion: Rest Echo Findings All wall segments showed normal motion. Findings: Study Quality * Technically adequate exam. ECG Findings * Normal sinus rhythm. Left Ventricle * LVEF 60-65%. * Normal LV chamber size, wall thickness and function. * Atypical septal motion consistent with post-operative status. * Psuedonormal left ventricular diastolic dysfunction. Right Ventricle * Normal right ventricular structure and function. Left Atrium * Mildly dilated left atrium. Right Atrium * Mildly dilated right atrium. Interatrial Septum * Interatrial septum not well evaluated. Aortic Valve * Aortic valve not well visualized. * Mild aortic regurgitation. * No aortic stenosis. Mitral Valve * Normal mitral valve structure and function. * No mitral regurgitation. * No mitral stenosis. Tricuspid Valve * Normal tricuspid valve structure and function. * Trace tricuspid regurgitation. * No evidence of pulmonary hypertension. Pulmonic Valve * Pulmonic valve not well visualized. * No pulmonic regurgitation. Aorta * Normally sized aortic root. Pericardium * The pericardium appears normal. IVC * Normal IVC dimensions and inspiratory collapse. Pulmonary Artery * Normal visualized portions of the main pulmonary artery. - VTE Documentation of Mechanical Device: Graduated compression elastic hosiery Consult Discharge Plan - Plan Instructions: Myocardial Infarction (DC), Chest Pain (DC), Depression (DC), Diabetes Mellitus Type 2 in Adults (DC), Using Oxygen at Home (DC), Using Oxygen at Home (GEN), Chronic Obstructive Pulmonary Disease (DC), Chronic Dysphagia (DC), Chronic Hypertension (DC), Anemia (GEN) Referrals: Kenneth Reynaga MD [Primary Care Provider] - (PLEASE CALL THE OFFICE TO MAKE AN APPOINTMENT IN 5-10 DAYS ) <Amos Irizarry - Last Filed: 07/20/17 13:08> Date of Encounter: 07/20/17 - Constitutional Vitals: Temp Pulse Resp BP Pulse Ox 97.7 F 63 18 112/61 98 07/20/17 10:54 07/20/17 10:54 07/20/17 10:54 07/20/17 10:54 07/20/17 10:54 Internal Medicine: Result - Labs CBC & Chem 7: 07/20/17 04:05 07/20/17 04:05 Labs: Short CBC 07/20/17 Range/Units 04:05 WBC 3.7 L (4.3-11.1) K/mcL Hgb 11.5 (11.5-15.4) g/dL Hct 33.9 L (35.3-44.9) % Plt Count 281 (140-400) K/mcL Neutrophils # 2.0 (1.6-8.9) K/mcL BMP 07/20/17 04:05 Sodium 142 Potassium 3.7 Chloride 110 H Carbon Dioxide 24 BUN 24 H Creatinine 0.67 Glucose 94 Calcium 9.0 - ABG Interpretation ABG results: PT/INR, D-dimer PT 12.0 Seconds (9.4-12.1) 07/18/17 02:29 - Attending Attestation I personally interviewed and examined this patient. I agree with the findings, assessment, and plan of Dr. Lopez, internal medicine architect intern. Etiology input also noted and appreciated. We are awaiting final recommendations pending outcome of stress test. Currently feeling well. No chest pain presently.
[2017-07-20] MEDS: amLODIPine 5 MG TABLET PO SCH (10:09)
[2017-07-20] MEDS: Ranolazine 500 MG TAB.ER.12H PO SCH (10:09)
[2017-07-20] MEDS: Gabapentin 400 MG CAPSULE PO SCH ×2 (10:10→16:47)
[2017-07-20] MEDS: Aspirin 81 MG TAB.CHEW PO SCH (10:10)
[2017-07-20] MEDS: Folic Acid 1 MG TABLET PO SCH (10:10)
[2017-07-20] MEDS: Sucralfate 1 GM TABLET PO SCH ×2 (10:13→16:47)
[2017-07-20] MEDS: Metoprolol XL (24 HR) Succ 25 MG TAB.ER.24H PO SCH (10:14)
[2017-07-20 10:58] VITALS: BP 112/61
--- NOTE | 2017-07-20 13:33 | Cardiology Progress Note ---
Date of Encounter: 07/20/17 Time of Encounter: 13:30 Assessment and Plan (1) CAD (coronary artery disease) Current Visit: No Status: Chronic History of CABG and multiple previous PCI. Known moderate non-obstructive disease remaining. LHC 04/21/17- 100% stenosis in the Mid LAD. 100% stenosis in the Proximal Circumflex. 16 mm long, 70% stenosis in the Proximal RCA. ZORA placed to proximal RCA with no complications. There is a 12 mm long, 70% stenosis in the Mid RCA. An intervention was performed on the Mid RCA with a final stenosis of 50%. 60% stenosis in the Right PDA. Grafts: MCDONALD to LAD patent. SVG to OM with hazy 50-60% stenosis in the body of graft. SVG to right PDA. Low risk stress test with small amount of ischemia. A/R/B of medical therapy versus LHC discussed with her. She is aware and agreeable with medical management. Findings and plan discussed with her primary estimation manager who is in agreement. Qualifiers: Coronary Disease-Associated Artery/Lesion type: unspecified vessel or lesion type [place] vs. transplanted heart: [place] heart Associated angina: without angina Qualified Code(s): I25.10 - Atherosclerotic heart disease of [place] coronary artery without angina pectoris (2) Angina effort Current Visit: No Status: Acute stable, continue medical management and fu in clinic (3) Hypertension Current Visit: No Status: Chronic controlled Qualifiers: Hypertension type: essential hypertension Qualified Code(s): I10 - Essential (primary) hypertension Discussion w patient/family: The assessment and plan as outlined above was discussed with the patient and/or family members who expressed understanding and agreement. All questions were answered. Thank you for involving us in the care of your patient. Please call with any questions. Subjective Principal diagnosis: Chest pain Interval history: Patient feels well overnight without chest/jaw/arm discomfort nor nausea. She is ready to eat and go home. Objective Vital Signs, Last 4 Hours Temp Pulse Resp BP Pulse Ox 07/20/17 10:54 97.7 F 63 18 112/61 98 General: Conversant HEENT: Atraumatic Neck: No JVD Cardiac: Reg Rate and Rhythm Lungs: Normal Breath Sounds Neuro: Alert and responsive Abdomen: Soft Skin: No rashes noted on visualized skin Musculoskeletal: No Chest Wall Tenderness Extremities: Other (trace edema BL) Results 07/20/17 04:05 03/23/18 04:05 Lab Results 07/20/17 07/20/17 04:05 04:05 WBC 3.7 L Hgb 11.5 Hct 33.9 L Plt Count 281 Sodium 142 Potassium 3.7 Chloride 110 H Carbon Dioxide 24 BUN 24 H Creatinine 0.67 Glucose 94 Calcium 9.0 - VTE Documentation of Mechanical Device: Graduated compression elastic hosiery Consult Discharge Plan - Plan Instructions: Myocardial Infarction (DC), Chest Pain (DC), Depression (DC), Diabetes Mellitus Type 2 in Adults (DC), Using Oxygen at Home (DC), Using Oxygen at Home (GEN), Chronic Obstructive Pulmonary Disease (DC), Chronic Dysphagia (DC), Chronic Hypertension (DC), Anemia (GEN) Referrals: Kenneth Reynaga MD [Primary Care Provider] - (PLEASE CALL THE OFFICE TO MAKE AN APPOINTMENT IN 5-10 DAYS )
[2017-07-20] MEDS ORDERED: amLODIPine 5 MG TABLET PO SCH (13:39)
--- NOTE | 2017-07-20 15:25 | Discharge Summary ---
- NOTES TO OUTPATIENT PROVIDER Notes to Outpatient Provider: Ms. Ratliff was admitted on 07/18/17 for chest pain. Patient's chest pain resolved and had negative troponin x3. Nuclear stress test found small sized, mild intensity, reversible apex and apical lateral defect possibly due to a small area of ischemia. This is considerd as low risk positive findings by cardiology. Cardiology discussed with the patient about LHC vs medical management. Patient elects medical management. Orders not resulted at time of discharge: Pending orders 07/19/17 09:27 NM jarad perf SPECT multi [NM] Routine Date of Encounter: 07/20/17 Time of Encounter: 13:00 - Discharge Diagnosis (1) CAD (coronary artery disease) Priority: Primary Status: Chronic Qualifiers: Coronary Disease-Associated Artery/Lesion type: unspecified vessel or lesion type [place] vs. transplanted heart: [place] heart Associated angina: without angina Qualified Code(s): I25.10 - Atherosclerotic heart disease of [place] coronary artery without angina pectoris (2) Angina effort Priority: Secondary Status: Acute (3) Hypertension Priority: Secondary Status: Chronic Qualifiers: Hypertension type: essential hypertension Qualified Code(s): I10 - Essential (primary) hypertension Hospital course: Ms. Ratliff is a 61 year old female with PMH of CAD s/p CABG and multiple previous PCI who presented with complaint of chest pain. Patient was admitted on 07/18/17 for chest pain work-up. Patient's chest pain resolved and had negative troponin x3. Nuclear stress test found small sized, mild intensity, reversible apex and apical lateral defect possibly due to a small area of ischemia. This is considerd as low risk positive findings by cardiology. Cardiology discussed with the patient about LHC vs medical management. Patient elects medical management and prefers to go home. Given patient is chest pain-free and remains hemodynamically stable, patient can be discharged home with prescribed metoprolol succinate 25 mg by mouth daily and amlodipine 2.5 mg by mouth daily. Patient is instructed to follow up with her primary care physician within a week regarding her hospitalization for chest pain. Patient should have follow- up with [facility] and the cardiology clinic will you to schedule an appointment. Patient expressed understanding and agreement with discharge plan. All questions were answered. Discharge discussed with: patient - Time Spent with Patient Total time spent providing and/or coordinating discharge services: Greater than 30 minutes (45 minutes) - Discharge Medications Prescriptions: amLODIPine [Norvasc] 2.5 mg PO DAILY #15 tablet Metoprolol XL (24 HR) Succ [Toprol Xl] 25 mg PO DAILY #30 tab.er.24h Home Medications: Nitroglycerin 0.4 mg SL Q5M PRN 12/31/14 [History] Clopidogrel [Plavix] 75 mg PO QAM 12/08/15 [History] Esomeprazole Magnesium [Nexium] 40 mg PO QAM 12/08/15 [History] Ezetimibe [Zetia] 10 mg PO QAM 12/08/15 [History] Gabapentin [Neurontin] 800 mg PO TID 12/08/15 [History] Oxygen 4 l IH CONT 12/27/15 [History] Ubidecarenone [Co Q10] 100 mg PO BID 12/27/15 [History] Aspirin 81 mg PO QAM 02/01/16 [History] Gemfibrozil [Lopid] 600 mg PO BIDAC #60 tablet 02/02/16 [Rx] Albuterol Neb [Proventil Neb] 2.5 mg IH TID 06/30/16 [History] Ergocalciferol (VITAMIN D2) [Vitamin D2] 50,000 unit PO QWEEK 06/30/16 [History] SUMAtriptan succinate [Imitrex] 50 mg PO AD PRN 11/20/16 [History] Tramadol HCl [Ultram] 50 - 100 mg PO Q6H PRN 11/20/16 [History] Ranolazine [Ranexa] 1,000 mg PO BID #60 tab 11/22/16 [Rx] levETIRAcetam [Keppra] 500 mg PO Q12HR tab 11/22/16 [Rx] Levalbuterol [Xopenex INH] 1 puff IH Q4H PRN 01/04/17 [History] Citalopram Hydrobromide [Citalopram HBr] 20 mg PO DAILY 04/20/17 [History] Ipratropium Neb [Atrovent Neb] 0.5 mg IH Q6HR PRN #20 vial.neb 05/20/17 [Rx] Folic Acid 1 mg PO DAILY #90 tablet 05/30/17 [Rx] Methotrexate [Otrexup] 15 mg PO MO 07/18/17 [History] Metoprolol XL (24 HR) Succ [Toprol Xl] 25 mg PO DAILY #30 tab.er.24h 07/20/17 [ Rx] Sucralfate [Carafate] 1 gm PO QIDAC tablet 07/20/17 [Rx] amLODIPine [Norvasc] 2.5 mg PO DAILY #15 tablet 07/20/17 [Rx] Allergies/Adverse Reactions: 3 Allergy/AdvReac Type Severity Reaction Status Date / Time Hydroxychloroquine Allergy Severe Swelling Verified 05/29/17 16:02 of Lip/Tongue/Throat epinephrine AdvReac Severe Seizure Verified 07/18/17 06:54 [From Epi E-Z Pen] iron AdvReac Abdominal Verified 05/29/17 16:02 Pain Date of admission: 07/18/17 04:59 Primary care physician: Kenneth Reynaga MD Consults: [facility] Discharging clinician: Cristela Martin Anticipated date of discharge: 07/20/17 - Constitutional Vitals: Temp Pulse Resp BP Pulse Ox 97.7 F 63 18 112/61 98 07/20/17 10:54 07/20/17 10:54 07/20/17 10:54 07/20/17 10:54 07/20/17 10:54 General appearance: Present: cooperative, A&O X 3, no acute distress, answers questions appropriately - Head Head exam: Present: normal inspection - Eye Eye exam: Present: EOMI - Neck Neck exam general surgery: Present: normal inspection, trachea midline - Respiratory Respiratory exam: Present: CTAB - Cardiovascular Cardiovascular exam: Present: RRR, +S1, +S2 - GI/Abdominal GI/Abdominal exam: Present: normal bowel sounds, soft. Absent: tenderness - Extremities Exam Extremities exam: Absent: cyanotic, pedal edema - Neurological Exam Neurological exam: Present: alert, no focal deficits. Absent: facial droop, speech deficit - Skin Skin exam: Present: dry, warm - Patient Status Disposition: Home, Self-Care Condition: Fair Functional capacity at discharge: independent ambulation Overall status at discharge: patient is progressing back to baseline - Discharge Instructions Instructions: Metoprolol (By mouth), Amlodipine (By mouth), Chest Pain (DC), Using Oxygen at Home (DC) Follow Up With: Kenneth Reynaga MD [Primary Care Provider] - (PLEASE CALL THE OFFICE TO MAKE AN APPOINTMENT IN 5-10 DAYS ) Additional Instructions: Please take prescribed metoprolol succinate 25 mg by mouth daily and amlodipine 2.5 mg by mouth daily. Please follow up with your primary care physician within a week regarding your hospitalization for chest pain. Please follow up with [facility]. The cardiology clinic will you to schedule an appointment. - Diet and Activity Activity: increase activity as tolerated Diet: low fat, low cholesterol, low salt diet - VTE Documentation of Mechanical Device: Graduated compression elastic hosiery
== END 2017-07-20 16:51 | disposition home or self-care (01) | DRG 303 ==
LOC: EMEROO 02:13 → 2NENU 04:59
PROVIDERS: ADMIT Internal Medicine; ATTEND Internal Medicine